=== PATIENT | female | born 1935 | race Caucasian/White ===

== ENCOUNTER 2016-09-30 14:37 | Inpatient (IN) ==
[2016-09-30] MEDS ORDERED: *HR* Metoprolol 5 MG/5 ML VIAL IVP ONE ×3 (16:07→17:00)
[2016-09-30 16:20] LABS: Basophils # 0.1 K/mcL (0.0-0.2); Basophils % 0.6 %; Eosinophils # 0.1 K/mcL (0.0-0.6); Eosinophils % 0.9 %; Hematocrit 40.2 % (35.3-44.9); Hemoglobin 12.6 g/dL (11.5-15.4); Immature Granulocytes % 0.3 % (0-4); Lymphocytes # 0.4 K/mcL (0.6-4.6); Lymphocytes % 4.1 %; Mean Corpuscular HGB Conc 31.3 g/dL (31.6-35.5); Mean Corpuscular Hemoglobin 27.3 pg (28.0-33.3); Mean Corpuscular Volume 87.2 fL (83.0-100.0); Mean Platelet Volume 10.1 fL (9.4-12.4); Monocytes # 0.3 K/mcL (0.0-1.3); Monocytes % 3.3 %; Platelet Count 236 K/mcL (140-400); Red Blood Count 4.61 M/mcL (3.82-4.97); Red Cell Distribution Width 15.7 % (11.5-14.5); Segmented Neutrophils % 90.8 %
--- NOTE | 2016-09-30 16:23 | Emergency Department Note ---
Disposition Clinical Impression: Paroxysmal atrial fibrillation, Elevated troponin, Acute on chronic renal insufficiency, Dehydration Disposition: Admitted As Inpatient Condition: Fair Time of Disposition: 17:17 General Adult HPI - General Chief complaint: ED Arrhythmia/Palpitations Stated complaint: A-Fib Time Seen by Provider: 09/30/16 15:31 Source: patient Limitations: no limitations Nursing Notes Reviewed: Yes Vital Signs Reviewed: Yes - History of Present Illness HPI Narrative: Patient is a 81-year-old female with past medical history atrial fibrillation, triple CABG in 2015, and nephrectomy presenting with heart palpitations. Patient states she has a history of going in and out of atrial fibrillation and this feels similar to that. States 3 days ago the patient was sitting at home and she noticed heart palpitations became short of breath and anxious as is been occurring multiple times over the past 3 days. She denies any chest pain. She states she is currently asymptomatic except for palpitations. States takes carvedilol 4 times a day 6.5 mg. She is also on warfarin for anticoagulation. She denies any recent illness. Pain Scale: 0 - Related Data Allergies Allergy/AdvReac Type Severity Reaction Status Date / Time No Known Allergies Allergy Verified 09/30/16 16:07 All systems ED: reviewed and negative except as stated. Constitutional: Denies: fever, chills Cardiovascular: Reports: palpitations. Denies: chest pain, dyspnea on exertion , orthopnea Past Medical History - Past Medical History Medical history: Reports: atrial fibrillation, cancer, coronary artery disease, hyperlipidemia, hypertension Psychiatric history: Reports: anxiety, depression - Social History Smoking Status: Never smoker Smokeless Tobacco Status: No Alcohol use: Reports: none Drug use: Reports: none Physical Exam Patient is sitting in bed comfortably. Patient is speaking in full sentences she is pleasant and smiling in the room. No acute distress. - General Limitations: no limitations General appearance: alert, in no apparent distress - Head Head exam: atraumatic, normocephalic, normal inspection - Eye Eye exam: Present: normal appearance, PERRL, EOMI - ENT ENT exam: normal exam, normal oropharynx, mucous membranes dry - Neck Neck exam: Present: normal inspection, full ROM, trachea midline - Chest Chest inspection: Present: normal inspection, symmetric chest wall rise. Absent : tenderness - Respiratory Respiratory exam: Present: normal lung sounds bilaterally. Absent: respiratory distress - Cardiovascular Cardiovascular exam: Present: tachycardia, irregular rhythm - Abdominal Exam Abdominal exam: Present: soft, Non-Tender, normal bowel sounds - Extremities Exam Extremities exam: Present: normal inspection, full ROM, tenderness - Expanded Lower Extremity Exam Neurovascular/Tendon exam: Present: normal capillary refill. Absent: pulse deficit - Back Exam Back exam: Present: normal inspection, full ROM. Absent: tenderness - Neurological Exam Neurological exam: Present: alert, oriented X3 - Psychiatric Psychiatric exam: Present: normal affect, normal mood - Skin Skin exam: Present: warm, dry, intact, normal color Course Course Narrative: Patient is a 1-year-old female with past medical history of COPD presenting with the complaint of cough and congestion with chest pressure that has been going on for the past 2 weeks. She is alert he had a 5 day course of azithromycin. - Reevaluation(s) Reevaluation #1: Patient has received a dose of Lopressor 5 mg 3 at this point. She still has a heart rate in the 140s. She has come down in the 100s a few times over a continues to rise. Time: 17:19 Vital Signs Temperature 98.3 F 09/30/16 15:25 Pulse Rate 125 09/30/16 15:25 Respiratory Rate 18 09/30/16 15:25 Blood Pressure 171/97 09/30/16 15:25 O2 Sat by Pulse Oximetry 92 09/30/16 15:25 Temperature 98.3 F 09/30/16 15:25 Pulse Rate 125 09/30/16 15:25 Respiratory Rate 18 09/30/16 15:25 Blood Pressure 171/97 09/30/16 15:25 O2 Sat by Pulse Oximetry 92 09/30/16 15:25 Oxygen Delivery Oxygen Delivery Room Air Medical Decision Making - Medical Records Medical records reviewed: Yes I reviewed the patient's medical records. - Lab Data Lab results reviewed: Yes I reviewed the patient's lab results. Result diagrams: 09/30/16 16:12 09/30/16 16:12 Lab Results 09/30/16 09/30/16 09/30/16 Range/Units 16:12 16:12 16:12 WBC 8.8 (4.3-11.1) K/mcL RBC 4.61 (3.82-4.97) M/mcL Hgb 12.6 (11.5-15.4) g/dL Hct 40.2 (35.3-44.9) % MCV 87.2 (83.0-100.0) fL MCH 27.3 L (28.0-33.3) pg MCHC 31.3 L (31.6-35.5) g/dL RDW 15.7 H (11.5-14.5) % Plt Count 236 (140-400) K/mcL MPV 10.1 (9.4-12.4) fL Immature Gran % 0.3 (0-4) % Seg Neutrophils % 90.8 % Lymphocytes % 4.1 % Monocytes % 3.3 % Eosinophils % 0.9 % Basophils % 0.6 % Neutrophils # 8.0 (1.6-8.9) K/mcL Lymphocytes # 0.4 L (0.6-4.6) K/mcL Monocytes # 0.3 (0.0-1.3) K/mcL Eosinophils # 0.1 (0.0-0.6) K/mcL Basophils # 0.1 (0.0-0.2) K/mcL PT 39.3 H (9.4-12.1) Seconds INR 3.6 Sodium 139 (136-145) mEq/L Potassium 4.2 (3.5-4.5) mEq/L Chloride 106 (98-109) mEq/L Carbon Dioxide 26 (19-29) mEq/L BUN 50 H (7-20) mg/dL Creatinine 2.30 H (0.57-1.11) mg/dL Est GFR ( Amer) 25 L (> 60) Est GFR (Non-Af Amer) 20 L (> 60) BUN/Creatinine Ratio 22 (6-26) Glucose 111 H (70-99) mg/dL Calculated Osmolality 302 H (280-300) Calcium 9.5 (8.6-10.8) mg/dL Troponin I (0-0.03) ng/mL B-Natriuretic Peptide (0-100) pg/mL 09/30/16 09/30/16 Range/Units 16:12 16:12 WBC (4.3-11.1) K/mcL RBC (3.82-4.97) M/mcL Hgb (11.5-15.4) g/dL Hct (35.3-44.9) % MCV (83.0-100.0) fL MCH (28.0-33.3) pg MCHC (31.6-35.5) g/dL RDW (11.5-14.5) % Plt Count (140-400) K/mcL MPV (9.4-12.4) fL Immature Gran % (0-4) % Seg Neutrophils % % Lymphocytes % % Monocytes % % Eosinophils % % Basophils % % Neutrophils # (1.6-8.9) K/mcL Lymphocytes # (0.6-4.6) K/mcL Monocytes # (0.0-1.3) K/mcL Eosinophils # (0.0-0.6) K/mcL Basophils # (0.0-0.2) K/mcL PT (9.4-12.1) Seconds INR Sodium (136-145) mEq/L Potassium (3.5-4.5) mEq/L Chloride (98-109) mEq/L Carbon Dioxide (19-29) mEq/L BUN (7-20) mg/dL Creatinine (0.57-1.11) mg/dL Est GFR ( Amer) (> 60) Est GFR (Non-Af Amer) (> 60) BUN/Creatinine Ratio (6-26) Glucose (70-99) mg/dL Calculated Osmolality (280-300) Calcium (8.6-10.8) mg/dL Troponin I 0.05 H* (0-0.03) ng/mL B-Natriuretic Peptide 1393 H (0-100) pg/mL - Radiology Data Radiology results reviewed: Yes I reviewed the patient's radiology results. Chest X-Ray 09/30/16 15:56 IMPRESSION: Cardiomegaly with pulmonary vascular congestion. No overt edema or consolidation. D/ / Steve Louise MD / Steve Louise MD Interpreting Provider: Steve Louise MD - EKG Data EKG #1 EKG attestation: Yes I reviewed and interpreted this EKG. EKG results narrative: Patient EKG was done at 16:02. EKG is a rate of 146 atrial fibrillation with a right bundle branch block, possible left posterior fascicular block. QRS is 131 and QT is 3:15 and these are within normal limits. Normal axis. This is new when compared to her old EKG done on 03/13/2013. Attestation Statement - Attestation Attestation: I personally interviewed and examined this patient and my medical decision- making was reviewed with the Resident Physician, . I agree with the documented findings, disposition and treatment plan as described except to the extent set forth below. This 81-year-old white female with a history of chronic atrial fibrillation on anticoagulation. Patient currently on Coreg. Patient currently sees Dr. Lux in cardiology at [facility]. She states that for the last 3 days she has been going in and out of atrial fibrillation. She contacted him by phone and feels she just needs her medications adjusted. He recommended she come here for evaluation. Patient denies any recent illness fevers chills or any other associated symptoms. I agree with physical exam findings as documented. Patient at bedside was in what appeared to be in atrial flutter approximately 150 bpm with stable blood pressure on arrival. Patient was resting comfortably asymptomatic with this with no complaints. Patient states the only thing she experienced at home is if she would get up to walk around to do something she would get short of breath. Patient's initial EKG showed atrial flutter with no acute ischemic changes. Patient was placed on nurse monitoring continuous pulse ox, IV saline well was established and she received aspirin and an additional dose of Lopressor 5 mg IV for rate control. Labs were drawn and sent. Chest x-ray was obtained showing some mild pulmonary congestion. This is new for her as she has no prior history of CHF. Patient with acute on chronic renal insufficiency, she reports that she has a solitary kidney due to renal cancer in the past and that her baseline creatinine is 2.2. She also has an elevated BUNs. Patient with a troponin of 0.05, we have no old labs for comparison so tarted no with her history of renal insufficiency if this is chronic for her. Patient denies any form of chest pain pressure or heaviness this time. Following her second dose of Lopressor IV patient had sustained a normal rate in the 70s but still in atrial fibrillation. We went to repeat an EKG and she has been having paroxysmal episodes of tachycardia. Patient's blood pressure has remained stable throughout and she continues to be asymptomatic with these changes. At this time we will admit the patient for further evaluation of her atrial fibrillation and abnormal lab work. Patient wishes to remain here at this time and does not want to be transferred to [facility]. Hospitalist was contacted who accepted the patient for admission and further evaluation and management.
[2016-09-30 16:32] LABS: Potassium 4.2 mEq/L (3.5-4.5)
[2016-09-30 16:33] LABS: Calcium 9.5 mg/dL (8.6-10.8)
[2016-09-30 16:46] LABS: INR 3.6; Prothrombin Time 39.3 Seconds (9.4-12.1)
[2016-09-30] MEDS ORDERED: 0.9 % Sodium Chloride 500 ML IVC ONE (16:46)
[2016-09-30] MEDS ORDERED: Naloxone 0.4 MG/ML INJ IVP PRN (22:50)
--- NOTE | 2016-09-30 22:55 | Internal Med History&Physical ---
Date of Encounter: 09/30/16 Time of Encounter: 22:53 Assessment and Plan (1) Paroxysmal atrial fibrillation Current visit: Yes Status: Acute start dilt gtt overnight, continue coreg, once stable, may increase coreg as needed base on further readings, check Mg. Hold coumadin, check INR tomorrow since INR is supertherapeutic (2) Acute on chronic renal insufficiency Current visit: Yes Status: Acute Gentle IVF, watch overload, trend Cr (3) Elevated troponin Current visit: Yes Status: Acute likely demand for RVR, trend Internal Medicine - H&P: HPI Chief complaint: Palpitation, SOB History of present illness: Ms. Mendoza is a 81 year old female with hx of AFIb who presents with symptomatic exacerbation with RVR. She is under the care of Dr Morales [facility] and is on warfarin and coreg. Hx of hx of INR swings on coumadin. SHe noted 4 days hx of palpitations, better with rest, worse with exertion. Some associated SOB with episodes. CXR reviewed by self with cardiomegaly and stable pulm congestion Tele trip on floor reviewed rate 143 Past Med Surg Social Fam HX - Past Medical History Medical history: atrial fibrillation, cancer, coronary artery disease, hyperlipidemia, hypertension Psychiatric history: anxiety, depression - Social History Smoking Status: Never smoker Smokeless Tobacco Status: No Alcohol use: none Drug use: none - Family History Mother Hx Family Cardiac Disorders: Yes (Stroke) Internal Medicine - H&P: Meds Aspirin Enteric Coated [Aspirin EC] 81 mg PO DAILY 09/30/16 [History] Carvedilol [Coreg] 6.25 mg PO BID 09/30/16 [History] Lisinopril/Hydrochlorothiazide [Zestoretic 20-25 mg Tablet] 1 tab PO DAILY 09/30 [History] Paricalcitol [Zemplar] 2 mcg PO MOWEFR 09/30/16 [History] Simvastatin [Zocor] 40 mg PO HS 09/30/16 [History] Warfarin [Coumadin] 2.5 mg PO SUMOWEFRSA 09/30/16 [History] Warfarin [Coumadin] 5 mg PO TUTH 09/30/16 [History] 3 Allergy/AdvReac Type Severity Reaction Status Date / Time No Known Allergies Allergy Verified 09/30/16 16:07 All Systems PM: A 10-system review of systems was performed and is negative for pertinent findings except as documented above in the HPI. Review of systems: ROS 14 point review of systems reviewed as best as possible given presentation. Pertinent positive or negative as per HPI or otherwise reviewed as negative - Constitutional Vitals: Temp Pulse Resp BP Pulse Ox 97.8 F 144 16 164/128 97 09/30/16 19:49 09/30/16 19:49 09/30/16 19:49 09/30/16 19:49 09/30/16 19:49 Exam: General - AAO x 3 Psych - Appropriate affect/speech. No agitation Eyes - SUSI. Eye lids intact. No scleral icterus Heart - A. fib with rapid ventricular response. S1 and S2 present. No added HS/ murmurs appreciated. No elevated JVD appreciated. No calf swellings/erythema Lung - Adequate air entry b/l, No crackes/wheezes appreciated GI - Soft, non-tender. No hepatosplenomegaly/ascites. BS+ - No CVA/suprapubic tenderness or palpable bladder distension Skin - Intact. No rash/petechiae/ecchymosis. Warm extremities MSK - Joints with normal ROM. No joint swellings Internal Med - H&P Results - Labs CBC & Chem 7: 09/30/16 16:12 09/30/16 16:12 - VTE Reasons for not Prescribing Prophylaxis: Not indicated-Anticoagulated or INR therapeutic
[2016-09-30] MEDS ORDERED: 0.9 % Sodium Chloride 1,000 ML IVC SCH (23:00)
[2016-09-30] MEDS ORDERED: *HR* Warfarin 5 MG TABLET PO SCH (23:00)
[2016-09-30] MEDS ORDERED: 0.9 % Sodium Chloride 1,000 ML ONE (23:06)
[2016-09-30] MEDS: 0.9 % Sodium Chloride 1,000 ML IVC SCH (23:17)
[2016-10-01 02:26] LABS: INR 3.9
[2016-10-01 02:29] LABS: Prothrombin Time 43.4 Seconds (9.4-12.1)
[2016-10-01 02:31] LABS: Calcium 8.6 mg/dL (8.6-10.8)
[2016-10-01 02:38] LABS: Basophils # 0.1 K/mcL (0.0-0.2); Basophils % 0.7 %; Eosinophils # 0.1 K/mcL (0.0-0.6); Eosinophils % 1.1 %; Hemoglobin 11.8 g/dL (11.5-15.4); Immature Granulocytes % 0.4 % (0-4); Lymphocytes # 0.8 K/mcL (0.6-4.6); Mean Corpuscular HGB Conc 32.8 g/dL (31.6-35.5); Mean Corpuscular Volume 85.5 fL (83.0-100.0); Mean Platelet Volume 11.3 fL (9.4-12.4); Monocytes # 0.5 K/mcL (0.0-1.3); Monocytes % 7.1 %; Neutrophils # 5.7 K/mcL (1.6-8.9); Platelet Count 180 K/mcL (140-400); Red Blood Count 4.21 M/mcL (3.82-4.97); Red Cell Distribution Width 15.6 % (11.5-14.5); Segmented Neutrophils % 79.7 %
[2016-10-01 02:41] LABS: Potassium 3.9 mEq/L (3.5-4.5)
[2016-10-01] MEDS: Aspirin Enteric Coated 81 MG Tablet PO SCH (08:19)
--- NOTE | 2016-10-01 10:14 | Internal Med Progress Note ---
<Jayro Noriega - Last Filed: 10/01/16 16:09> Date of Encounter: 10/01/16 Time of Encounter: 10:14 - Assessment and plan (1) Paroxysmal atrial fibrillation Current Visit: Yes Status: Acute Assessment and plan: 1 episode hx afib in 2014 after CABG 3 vessel. Palpations, SOB on exertion and racing heart 4 day history prior to hospitalizaion. Asymptomatic on 10/01/16 - now on Dilt 30 PO - continue coreg, increase if needed - coumadin - currently held 2/2 subtherapeutic. (2) Acute on chronic renal insufficiency Current Visit: Yes Status: Acute Assessment and plan: No known history of renal disease. Cr on admission 2.30. Cr today 2.25 after IVF. - ct IVF - Subjective Interval history: Ms Mendoza 81 yo F on day 1 admit 2/2 paroxysmal afib w/ hx 1 episode of afib post CAB 3 vessel in 2014 which self converted. Patient today reports that she no longer feels the palpitations, SOB or racing heart. patient denies n/f/v/c/headache/lightheadness/confusion/numbness or weakness. - Constitutional Vitals: Temp Pulse Resp BP Pulse Ox 97.5 F L 70 17 135/82 92 10/01/16 06:57 10/01/16 06:57 10/01/16 06:57 10/01/16 06:57 10/01/16 06:57 General appearance: Present: A&O X 3 - Head Head exam: Present: atraumatic, normocephalic - Respiratory Respiratory exam: Present: CTAB. Absent: accessory muscle use, rales, rhonchi, wheezes - Cardiovascular Cardiovascular exam: Present: RRR, +S1, +S2. Absent: diastolic murmur, gallop, rubs, systolic murmur - Expanded Cardiovascular Exam Peripheral pulses: 2+: Radial (L), Radial (R), Posterior Tibialis (L), Posterior Tibialis (R), Dorsalis Pedis (L) PM, Dorsalis Pedis (R) PM - Extremities Exam Extremities exam: Present: normal inspection Internal Medicine: Result - Labs CBC & Chem 7: 10/01/16 01:53 10/01/16 01:53 Labs: Short CBC 10/01/16 Range/Units 01:53 WBC 7.2 (4.3-11.1) K/mcL Hgb 11.8 (11.5-15.4) g/dL Hct 36.0 (35.3-44.9) % Plt Count 180 (140-400) K/mcL Neutrophils # 5.7 (1.6-8.9) K/mcL BMP 10/01/16 01:53 Sodium 140 Potassium 3.9 Chloride 110 H Carbon Dioxide 21 BUN 48 H Creatinine 2.25 H Glucose 165 H Calcium 8.6 Cardiac Enzymes 10/01/16 10/01/16 Range/Units 01:53 04:47 Troponin I 0.04 H* 0.04 H* (0-0.03) ng/mL - ABG Interpretation ABG results: PT/INR, D-dimer PT 43.4 Seconds (9.4-12.1) H* 10/01/16 01:53 - VTE Reasons for not Prescribing Prophylaxis: Not indicated-Anticoagulated or INR therapeutic Consult Discharge Plan - Plan Referrals: Cesar Lozano DO [Primary Care Provider] - <Jeromy Ren - Last Filed: 10/01/16 18:11> Date of Encounter: 10/01/16 - Constitutional Vitals: Temp Pulse Resp BP Pulse Ox 97.6 F 60 18 177/87 95 10/01/16 17:09 10/01/16 17:09 10/01/16 17:09 10/01/16 17:09 10/01/16 17:09 Internal Medicine: Result - Labs CBC & Chem 7: 10/01/16 01:53 10/01/16 01:53 Labs: Short CBC 10/01/16 Range/Units 01:53 WBC 7.2 (4.3-11.1) K/mcL Hgb 11.8 (11.5-15.4) g/dL Hct 36.0 (35.3-44.9) % Plt Count 180 (140-400) K/mcL Neutrophils # 5.7 (1.6-8.9) K/mcL BMP 10/01/16 01:53 Sodium 140 Potassium 3.9 Chloride 110 H Carbon Dioxide 21 BUN 48 H Creatinine 2.25 H Glucose 165 H Calcium 8.6 Cardiac Enzymes 10/01/16 10/01/16 10/01/16 Range/Units 01:53 04:47 10:34 Troponin I 0.04 H* 0.04 H* 0.04 H* (0-0.03) ng/mL - ABG Interpretation ABG results: PT/INR, D-dimer PT 43.4 Seconds (9.4-12.1) H* 10/01/16 01:53 - Attending Attestation I examined this patient and my medical decision-making was reviewed with the Resident Physician. I agree with the documented findings, disposition and treatment plan as described except to the extent set forth below. We will spoke with patient's cardiology tomorrow. In the patient's cardiology agree with the management what we are giving at this point, we will discharge patient. Patient has a cardiology appointment set up at the [facility].
[2016-10-01] MEDS: 0.9 % Sodium Chloride 1,000 ML IVC SCH (13:51)
--- NOTE | 2016-10-01 14:49 | Electrocardiograph Report ---
[place] [id number] Test Date: 2016-09-30 Pat Name: Susan Mendoza Department: 0 Room: 2A Gender: F [employer]inder: Elvi : [id number] Requested By: Solis Carnes Order Number: [id number] Reading MD: Liobrio Seaman MD Measurements Intervals [place] Rate: 146 P: ID: 0 QRS: 151 QRSD: 131 T: 40 QT: 315 QTc: 399 Interpretive Statements ATRIAL FLUTTER/TACHYCARDIA WITH RAPID VENTRICULAR RESPONSE RIGHT BUNDLE BRANCH BLOCK LEFT POSTERIOR FASCICULAR BLOCK Electronically Signed On 10-01-2016 14:48:08 EDT by Liborio Seaman MD
[2016-10-01] MEDS ORDERED: *HR* Metoprolol 5 MG/5 ML VIAL IVP ONE (20:39)
[2016-10-01] MEDS ORDERED: *HR* Warfarin 2.5 MG TABLET PO SCH (22:47)
[2016-10-02 06:31] LABS: INR 2.8; Prothrombin Time 30.9 Seconds (9.4-12.1)
[2016-10-02 07:00] LABS: Hematocrit 37.1 % (35.3-44.9); Hemoglobin 11.9 g/dL (11.5-15.4); Mean Corpuscular HGB Conc 32.1 g/dL (31.6-35.5); Mean Corpuscular Hemoglobin 27.9 pg (28.0-33.3); Mean Corpuscular Volume 86.9 fL (83.0-100.0); Mean Platelet Volume 10.8 fL (9.4-12.4); Platelet Count 213 K/mcL (140-400); Red Blood Count 4.27 M/mcL (3.82-4.97)
[2016-10-02 07:07] LABS: Calcium 9.6 mg/dL (8.6-10.8)
--- NOTE | 2016-10-02 07:19 | Internal Med Progress Note ---
Date of Encounter: 10/02/16 Time of Encounter: 07:19 - Assessment and plan (1) Paroxysmal atrial fibrillation Current Visit: Yes Status: Acute (2) Acute on chronic renal insufficiency Current Visit: Yes Status: Acute - Subjective Interval history: Ms Mendoza 81 yo F on day 1 admit 2/2 paroxysmal afib w/ hx 1 episode of afib post CAB 3 vessel in 2014 which self converted. Patient today reports that she no longer feels the palpitations, SOB or racing heart. patient denies n/f/v/c/headache/lightheadness/confusion/numbness or weakness. - Constitutional Vitals: Temp Pulse Resp BP Pulse Ox 97.7 F 69 18 154/77 98 10/02/16 05:26 10/02/16 05:26 10/02/16 05:26 10/02/16 05:26 10/02/16 05:26 General appearance: Present: A&O X 3 Internal Medicine: Result - Labs CBC & Chem 7: 10/02/16 05:48 10/02/16 05:48 Labs: Short CBC 10/02/16 Range/Units 05:48 WBC 7.8 (4.3-11.1) K/mcL Hgb 11.9 (11.5-15.4) g/dL Hct 37.1 (35.3-44.9) % Plt Count 213 (140-400) K/mcL BMP 10/02/16 05:48 Sodium 142 Potassium 4.0 Chloride 111 H Carbon Dioxide 20 BUN 49 H Creatinine 2.31 H Glucose 96 Calcium 9.6 Cardiac Enzymes 10/01/16 Range/Units 10:34 Troponin I 0.04 H* (0-0.03) ng/mL - ABG Interpretation ABG results: PT/INR, D-dimer PT 30.9 Seconds (9.4-12.1) H 10/02/16 05:48 - VTE Reasons for not Prescribing Prophylaxis: Not indicated-Anticoagulated or INR therapeutic Consult Discharge Plan - Plan Referrals: Cesar Lozano DO [Primary Care Provider] -
[2016-10-02] MEDS: Aspirin Enteric Coated 81 MG Tablet PO SCH (07:53)
--- NOTE | 2016-10-02 08:31 | Discharge Summary ---
<Jayro Noriega - Last Filed: 10/02/16 14:20> Date of Encounter: 10/02/16 Time of Encounter: 08:31 - Discharge Diagnosis (1) Paroxysmal atrial fibrillation Priority: Primary Status: Acute (2) Acute on chronic renal insufficiency Priority: Secondary Status: Acute - Discharge Medications Prescriptions: Amoxicillin/Clavulanate [Augmentin] 500 mg PO BID #10 tablet Atorvastatin [Lipitor] 40 mg PO HS #30 tab Diltiazem CD (24hr) [Cardizem CD] 240 mg PO DAILY #30 cap.er.24h Home Medications: Aspirin Enteric Coated [Aspirin EC] 81 mg PO DAILY 09/30/16 [History] Carvedilol [Coreg] 12.5 mg PO BID 09/30/16 [History] Paricalcitol [Zemplar] 2 mcg PO MOWEFR 09/30/16 [History] Warfarin [Coumadin] 2.5 mg PO SUMOWEFRSA 09/30/16 [History] Amoxicillin/Clavulanate [Augmentin] 500 mg PO BID #10 tablet 10/05/16 [Rx] Atorvastatin [Lipitor] 40 mg PO HS #30 tab 10/05/16 [Rx] Diltiazem CD (24hr) [Cardizem CD] 240 mg PO DAILY #30 cap.er.24h 10/05/16 [Rx] Allergies/Adverse Reactions: 3 Allergy/AdvReac Type Severity Reaction Status Date / Time lidocaine AdvReac Mild Palpitation Verified 10/03/16 22:16 s Date of admission: 09/30/16 22:50 Primary care physician: Cesar Lozano - Patient Status Disposition: Home, Self-Care Condition: Fair Overall status at discharge: patient is progressing back to baseline - Discharge Instructions Instructions: Diltiazem (By mouth), Amoxicillin/Clavulanate Potassium (By mouth ), Atorvastatin (By mouth), Atrial Flutter (DC), Atrial Fibrillation (DC) Follow Up With: Dr. Felix Romero MD [Other] (Office will call the patient at home with an appointment date and time. Thank you!!) Cesar Lozano DO [Primary Care Provider] - 10/07/16 11:15 am Dalton Pressley DO [Non-Partnered Physician] - Durga Abreu DO [Partnered Physician] - Additional Instructions: Patient to follow up with Primary Care Provider within 1 week, and to follow up with cardiology. will have outpatient cardioversion done in about 6 weeks per cardiology. Patient to continue home Coreg. Due to renal function to discontinue lisinopril /hctz. Restart warfarin 2.5 mg Take Augmentin twice a day for 5 days for pneumonia. Take cardizem CD 240 daily Follow up with primary care doctor tomorrow to have INR checked. goal INR 2.5- 3.5 stop simvastatin, start atorvastatin. - Diet and Activity Activity: increase activity as tolerated Diet: low salt diet Hospital course: Ms. Mendoza is a 81 year old female with history of Afib who presented with symptomatic exacerbation with RVR. Sx included 4 day hx of palpitations, better with rest, worse with exertion, and associated SOB with episodes. CXR cardiomegaly and stable pulm congestion. EKG confirmed Afib w/ RVR. She was started on Dilt IV then switched to Dilt PO and discharged on Dilt 120 mg CD PO Rx. As well, she takes ASA 81, Carvdilol 12.5 mg BID, and she was restarted on her Warfarin for anti-coag on discharge. Patient requested to switch to [facility] follow up. - Time Spent with Patient Total time spent providing and/or coordinating discharge services: - Constitutional Vitals: Temp Pulse Resp BP Pulse Ox 97.8 F 61 16 167/72 91 10/02/16 07:34 10/02/16 07:34 10/02/16 07:34 10/02/16 07:34 10/02/16 07:34 General appearance: Present: A&O X 3 - Respiratory Respiratory exam: Present: CTAB. Absent: accessory muscle use, rales, rhonchi, wheezes - Cardiovascular Cardiovascular exam: Present: irregular rhythm - GI/Abdominal GI/Abdominal exam: Present: normal bowel sounds, soft, no peritoneal signs. Absent: distended, tenderness - Neurological Exam Neurological exam: Present: alert, oriented X3 - Psychiatric Psychiatric exam: Present: normal affect, normal mood - VTE Reasons for not Prescribing Prophylaxis: Not indicated-Anticoagulated or INR therapeutic <Jordan Renteria - Last Filed: 10/03/16 17:41> Date of Encounter: 10/03/16 Time of Encounter: 10:00 - Discharge Diagnosis (1) Paroxysmal atrial fibrillation Priority: Primary Status: Acute (2) Acute on chronic renal insufficiency Priority: Secondary Status: Acute Procedures/tests Complete & Pending: Procedures Performed prior 72 hours Category Date Time Status EKG [ECG 12 lead ECG] [ECG] Stat Y 10/02/16 12:24 Ordered EKG [ECG 12 lead ECG] [ECG] Stat Y 10/03/16 09:06 Ordered EV светлана guided cardioversion Routine Y 10/03/16 10:44 Ordered Date of admission: 09/30/16 22:50 Primary care physician: Cesar Lozano Discharging clinician: Jordan Renteria Anticipated date of discharge: 10/03/16 Interval History: Patient seen and examined. Reports that she feels well with no complaints. Denies light-headedness, chest pain, palpitations, dyspnea, cough, N/V/D, dysuria, or leg pain//swelling. Hospital course: Cardiology was consulted and conducted a СВЕТЛАНА and cardioversion on 10/03/16. She will be discharged on her home BB dose, not Diltaizem. - Time Spent with Patient Total time spent providing and/or coordinating discharge services: Greater than 30 minutes - Constitutional Vitals: Temp Pulse Resp BP Pulse Ox 98.1 F 129 24 176/121 92 10/03/16 17:11 10/03/16 17:11 10/03/16 17:11 10/03/16 17:11 10/03/16 17:11 General appearance: Present: A&O X 3, no acute distress, answers questions appropriately - Head Head exam: Present: atraumatic, normocephalic - Eye Eye exam: Present: conjuntiva pink, sclera anicteric - Cardiovascular Cardiovascular exam: Present: irregular rhythm. Absent: diastolic murmur, systolic murmur - Extremities Exam Extremities exam: Present: warm, radial pulses palpable and symmetrical. Absent : pedal edema, tenderness - Neurological Exam Neurological exam: Present: CN II-XII intact, no focal deficits - Skin Skin exam: Present: dry, intact <Gela,Jeromy P - Last Filed: 10/06/16 18:54> Date of Encounter: 10/06/16 Procedures/tests Complete & Pending: Procedures Performed prior 72 hours Category Date Time Status ECG 12 lead ECG [ECG] Routine Y 10/04/16 09:01 Completed Date of admission: 09/30/16 22:50 Primary care physician: Cesar Lozano Consults: 10/04/16 00:21 Consult to Nephrology [CONS] Routine Consulting Provider: [facility] Reason for Consult: Hx of CKD and only one kidney. Sees nephrology at outside facility. Patient has effusions on CXR and very mild upper extremity edema but no previous diagnosis of CHF per records. Patient was on Lisinopril HCTZ previously but HCTZ was discontinued due to previous worsening renal function per patient. Would appreciate nephro input/recs before possibl starting back HCTZ or another diuretic such as lasix. Call Completed: No Hospital course: Ms. Mendoza is a 81 year old female - Time Spent with Patient Total time spent providing and/or coordinating discharge services: - Constitutional Vitals: Temp Pulse Resp BP Pulse Ox 97.7 F 93 18 156/94 96 10/05/16 11:41 10/05/16 11:41 10/05/16 11:41 10/05/16 11:41 10/05/16 11:41 - Attending Attestation Patient is not discharged on this date. Please treat this discharge summary as a "cancelled" discharge summary.
--- NOTE | 2016-10-02 14:23 | Event Note ---
<Jayro Noriega - Last Filed: 10/02/16 15:08> Date of Encounter: 10/02/16 Time of Encounter: 14:22 Patient was about to be discharged when she started to have Tachycardia. Cardio was consulted and decided to start IV Amiodarone. Transfer to <Jeromy Ren - Last Filed: 10/02/16 18:29> Date of Encounter: 10/02/16 case discussed with cardio will start cardizem cardio will follow
--- NOTE | 2016-10-02 14:38 | Cardiology Consult Note ---
Date of Encounter: 10/02/16 Time of Encounter: 14:15 Assessment and Plan (1) Paroxysmal atrial flutter Current Visit: Yes Status: Acute Start cardizem IV drip 10 mg push and then 10 mg/hr. Patient's INR is 2.8 and currently therapeutic. Recommended restarting warfarin. (2) Shortness of breath Current Visit: Yes Status: Acute BNP on arrival was 1393. Patient's renal status could also be contributing to high BNP value. Patient's creatinine is 2.2. Lasix not recommended at this point due to renal status. Will consider ordering echocardiogram once patient's rate has been controlled. (3) Coronary artery disease Current Visit: Yes Status: Acute Patient's risk factor for CAD include HTN and hyperlipidemia. Continue aspirin, carvedilol, and statin. Qualifiers: Qualified Code(s): I25.10 - Atherosclerotic heart disease of [place] coronary artery without angina pectoris (4) Hypertension Current Visit: Yes Status: Acute Patient's BP range has been from 101/63-171/97. Continue carvedilol. Qualifiers: Qualified Code(s): I10 - Essential (primary) hypertension (5) Elevated troponin Current Visit: Yes Status: Acute Troponin was elevated at 0.04, which was most likely secondary to her atrial flutter. (6) Hyperlipidemia Current Visit: Yes Status: Acute Continue statin. Qualifiers: Qualified Code(s): E78.5 - Hyperlipidemia, unspecified Discussion w patient/family: The assessment and plan as outlined above was discussed with the patient and/or family members who expressed understanding and agreement. All questions were answered. Thank you for involving us in the care of your patient. Please call with any questions. History of Present Illness Consult date: 10/02/16 Consult reason: Atrial fibrillation Chief complaint: Palpitations, shortness of breath History of present illness: Ms. Mendoza is a 81 year old female with a PMH of atrial fibrillation, renal cancer, CAD, hyperlipidemia, HTN, with a PSH of CABG x 3 and nephrectomy that presents for heart palpitations and shortness of breath. Patient says that 5 days ago, she started feeling heart palpitations along with shortness of breath and increased HR when she would be working around the house. She said this happened a few times and would each last anywhere from a few hours to the entire night. She denies any chest pain, numbness/tingling, headaches, vision changes, syncope, nausea, or vomiting. She says that 2 weeks ago the most active thing she would be able to do would be to walk 3/4 mile without becoming short of breath. She states than now she can't even stand up without some shortness of breath. She denies any swelling or coughing. When patient presented to the ER, her EKG showed atrial flutter with RVR. At home she is on warfarin at home. Her BNP on arrival was 1393 and her troponins were elevated at 0.05. Past Med Surg Social Fam HX - Past Medical History Medical history: atrial fibrillation, cancer, coronary artery disease, hyperlipidemia, hypertension Psychiatric history: anxiety, depression - Social History Smoking Status: Never smoker Smokeless Tobacco Status: No Alcohol use: none Drug use: none - Family History Mother Hx Family Cardiac Disorders: Yes (Stroke) Medications and Allergies Aspirin Enteric Coated [Aspirin EC] 81 mg PO DAILY 09/30/16 [History] Carvedilol [Coreg] 12.5 mg PO BID 09/30/16 [History] Paricalcitol [Zemplar] 2 mcg PO MOWEFR 09/30/16 [History] Simvastatin [Zocor] 40 mg PO HS 09/30/16 [History] Warfarin [Coumadin] 2.5 mg PO SUMOWEFRSA 09/30/16 [History] Diltiazem CD (24hr) [Cardizem CD] 120 mg PO DAILY #30 cap.er.24h 10/02/16 [Rx] 3 Allergy/AdvReac Type Severity Reaction Status Date / Time No Known Allergies Allergy Verified 09/30/16 16:07 All Systems Review: A 10-system review of systems was performed and is negative for pertinent findings except as documented above in the HPI. - EENT Eyes: no blurred vision, no loss of vision - Cardiovascular Cardiovascular: dyspnea on exertion, irregular heart rhythm, palpitations, rapid heart rate, no chest pain at rest, no chest pain with exertion, no dyspnea at rest, no radiating jaw, neck or arm pain, no leg edema, no lightheadedness, no orthopnea, no syncope - Respiratory Respiratory: no cough Physical Examination General: Conversant, No Apparent Distress Neck: Other (R JVD noted. Bruits detected on carotids bilaterally.) Cardiac: Other (Irregular rhythm and rate. ) Lungs: Normal Breath Sounds, No Wheeze, Rales, Rhonchi Neuro: Alert and responsive Musculoskeletal: No Chest Wall Tenderness Extremities: No Clubbing, No Cyanosis, No Edema, Normal Pulses Results 10/02/16 05:48 10/02/16 05:48 Lab Results 10/02/16 10/02/16 10/02/16 05:48 05:48 05:48 WBC 7.8 Hgb 11.9 Hct 37.1 Plt Count 213 INR 2.8 Sodium 142 Potassium 4.0 Chloride 111 H Carbon Dioxide 20 BUN 49 H Creatinine 2.31 H Glucose 96 Calcium 9.6 Laboratory Tests 09/30/16 10/01/16 10/01/16 16:12 01:53 04:47 Troponin I 0.05 H* 0.04 H* 0.04 H* 10/01/16 10:34 Troponin I 0.04 H* - Imaging and Cardiology Chest Xray: report reviewed (Cardiomegaly with pulmonary vascular congestion. No edema or consolodation.) - EKG Interpretation EKG results cardiology: personally reviewed (Displays atrial flutter with RBB.) Consult Discharge Plan - Plan Instructions: Diltiazem (By mouth) Additional Instructions: Patient to follow up with Primary Care Provider within 1 week, and to follow up with her bobbin hauler at [place]. Patient to start on Cardizem 120 mg CD. Due to renal function to D/C lisinopril /hctz. Restart warfarin 2.5 mg Referrals: Dr. Felix Romero MD [Other] (Office will call the patient at home with an appointment date and time. Thank you!!) Cesar Lozano DO [Primary Care Provider] - 10/07/16 11:15 am Dalton Pressley DO [Non-Partnered Physician] - Durga Abreu DO [Partnered Physician] - Prescriptions: Diltiazem CD (24hr) [Cardizem CD] 120 mg PO DAILY #30 cap.er.24h
[2016-10-02] MEDS ORDERED: 0.9 % Sodium Chloride 1,000 ML ONE (19:36)
[2016-10-03 04:23] LABS: INR 2.4; Prothrombin Time 26.8 Seconds (9.4-12.1)
[2016-10-03 07:18] LABS: Basophils # 0.1 K/mcL (0.0-0.2); Basophils % 0.6 %; Eosinophils # 0.4 K/mcL (0.0-0.6); Eosinophils % 4.3 %; Hematocrit 37.2 % (35.3-44.9); Hemoglobin 11.6 g/dL (11.5-15.4); Immature Granulocytes % 0.3 % (0-4); Lymphocytes # 0.6 K/mcL (0.6-4.6); Lymphocytes % 5.9 %; Mean Corpuscular HGB Conc 31.2 g/dL (31.6-35.5); Mean Corpuscular Hemoglobin 26.9 pg (28.0-33.3); Mean Corpuscular Volume 86.3 fL (83.0-100.0); Mean Platelet Volume 10.1 fL (9.4-12.4); Monocytes # 0.7 K/mcL (0.0-1.3); Monocytes % 7.1 %; Neutrophils # 7.8 K/mcL (1.6-8.9); Platelet Count 216 K/mcL (140-400); Red Blood Count 4.31 M/mcL (3.82-4.97); Red Cell Distribution Width 15.8 % (11.5-14.5); Segmented Neutrophils % 81.8 %
[2016-10-03 07:26] LABS: Calcium 9.5 mg/dL (8.6-10.8); Potassium 3.9 mEq/L (3.5-4.5)
[2016-10-03] MEDS: Aspirin Enteric Coated 81 MG Tablet PO SCH (08:22)
--- NOTE | 2016-10-03 10:29 | Cardiology Progress Note ---
Date of Encounter: 10/03/16 Time of Encounter: 09:40 Assessment and Plan (1) Paroxysmal atrial flutter Current Visit: Yes Status: Acute Patient started on cardizem drip yesterday. EKG from today shows that the patient is still in atrial flutter. Plan to do a СВЕТЛАНА cardioversion today. Patient's INR is currently at 2.4 and therapeutic. Ordered coumadin per pharmacy. (2) Shortness of breath Current Visit: Yes Status: Acute BNP on arrival was 1393. Patient's renal status could also be contributing to high BNP value. Patient's creatinine is 2.36. Lasix not recommended at this point due to renal status. (3) Coronary artery disease Current Visit: Yes Status: Acute Patient's risk factor for CAD include HTN and hyperlipidemia. Continue aspirin, carvedilol, and statin. Qualifiers: Qualified Code(s): I25.10 - Atherosclerotic heart disease of [place] coronary artery without angina pectoris (4) Hypertension Current Visit: Yes Status: Acute Patient's BP range has been from 143/69-169/116. Continue carvedilol. Qualifiers: Qualified Code(s): I10 - Essential (primary) hypertension (5) Elevated troponin Current Visit: Yes Status: Acute Troponin was elevated at 0.04, which was most likely secondary to her atrial flutter. (6) Hyperlipidemia Current Visit: Yes Status: Acute Continue statin. Qualifiers: Qualified Code(s): E78.5 - Hyperlipidemia, unspecified Discussion w patient/family: The assessment and plan as outlined above was discussed with the patient and/or family members who expressed understanding and agreement. All questions were answered. Thank you for involving us in the care of your patient. Please call with any questions. Subjective Principal diagnosis: Atrial flutter, palpitations Interval history: Patient still admits shortness of breath and increased HR when she gets up to walk and states that it has not changed in severity since yesterday. She denies chest pain, nausea, vomiting, headaches, light-headedness, vision changes, or syncope. Objective Vital Signs, Last 4 Hours Temp Pulse Resp BP Pulse Ox 10/03/16 07:59 97.9 F 115 17 150/88 90 General: Conversant, No Apparent Distress Neck: Other (JVD noted on R side, but seems to be less when compared to yesterday. Minor bruits apprecaited bilaterally in carotids. ) Cardiac: Other (Irregular rhytmn and rate. ) Lungs: Normal Breath Sounds, No Wheeze, Rales, Rhonchi Neuro: Alert and responsive Musculoskeletal: No Chest Wall Tenderness Extremities: No Clubbing, No Cyanosis, No Edema, Normal Pulses Results 10/03/16 07:00 10/03/16 07:00 Lab Results 10/03/16 10/03/16 10/03/16 03:39 07:00 07:00 WBC 9.5 Hgb 11.6 Hct 37.2 Plt Count 216 INR 2.4 Sodium 142 Potassium 3.9 Chloride 111 H Carbon Dioxide 22 BUN 47 H Creatinine 2.36 H Glucose 98 Calcium 9.5 Laboratory Tests 09/30/16 10/01/16 10/01/16 16:12 01:53 04:47 Troponin I 0.04 H* 0.04 H* B-Natriuretic Peptide 1393 H 10/01/16 10:34 Troponin I 0.04 H* B-Natriuretic Peptide - VTE Reasons for not Prescribing Prophylaxis: Not indicated-Anticoagulated or INR therapeutic Consult Discharge Plan - Plan Instructions: Diltiazem (By mouth) Additional Instructions: Patient to follow up with Primary Care Provider within 1 week, and to follow up with her visual c developer at [place]. Patient to start on Cardizem 120 mg CD. Due to renal function to D/C lisinopril /hctz. Restart warfarin 2.5 mg Referrals: Dr. Felix oRmero MD [Other] (Office will call the patient at home with an appointment date and time. Thank you!!) Cesar Lozano DO [Primary Care Provider] - 10/07/16 11:15 am Dalton Pressley DO [Non-Partnered Physician] - Durga Abreu DO [Partnered Physician] - Prescriptions: Diltiazem CD (24hr) [Cardizem CD] 120 mg PO DAILY #30 cap.er.24h
[2016-10-03] MEDS ORDERED: *HR* FentaNYL (PF) 100 MCG/2 ML VIAL IVP PRN (16:18)
[2016-10-03] MEDS ORDERED: 0.9 % Sodium Chloride 500 ML IVC ONE ×2 (16:19→17:03)
[2016-10-03] MEDS ORDERED: *HR* Midazolam HCl 5 MG/5 ML VIAL IVP PRN (16:19)
--- NOTE | 2016-10-03 17:56 | Internal Med Progress Note ---
<DexterJordan Eitan - Last Filed: 10/03/16 17:52> Date of Encounter: 10/03/16 Time of Encounter: 10:00 - Assessment and plan (1) Paroxysmal atrial fibrillation Current Visit: Yes Status: Acute Assessment and plan: 1 episode hx afib in 2014 after CABG 3 vessel. Palpations, SOB on exertion and racing heart 4 day history prior to hospitalizaion. Asymptomatic on 10/01/16 - now on Dilt 30 PO - continue coreg, increase if needed - coumadin - currently held 2/2 subtherapeutic Plan: СВЕТЛАНА and cardioversion today May stop Dilt after cardioversion May discharge on home BB, statin, and ASA after successful cardioversion (2) Acute on chronic renal insufficiency Current Visit: Yes Status: Acute Assessment and plan: No known history of renal disease. Cr on admission 2.30. Cr today 2.36 today - ct IVF - Subjective Interval history: Patient seen and examined. Doing well with no complaints. Denies light- headedness, chest pain, palpitations, dyspnea, N/V/D, dysuria, or leg pain/ swelling. - Constitutional Vitals: Temp Pulse Resp BP Pulse Ox 98.1 F 129 24 176/121 92 10/03/16 17:11 10/03/16 17:11 10/03/16 17:11 10/03/16 17:11 10/03/16 17:11 General appearance: Present: A&O X 3, no acute distress, answers questions appropriately - Head Head exam: Present: atraumatic, normocephalic - Eye Eye exam: Present: conjuntiva pink, sclera anicteric - Respiratory Respiratory exam: Present: CTAB. Absent: rales, rhonchi, wheezes - Cardiovascular Cardiovascular exam: Present: irregular rhythm. Absent: diastolic murmur, systolic murmur - GI/Abdominal GI/Abdominal exam: Present: normal bowel sounds, soft. Absent: distended, rigid , tenderness - Extremities Exam Extremities exam: Present: warm, radial pulses palpable and symmetrical. Absent : pedal edema, tenderness - Neurological Exam Neurological exam: Present: alert, CN II-XII intact, oriented X3, no focal deficits - Skin Skin exam: Present: dry, intact Internal Medicine: Result - Labs CBC & Chem 7: 10/03/16 07:00 10/03/16 07:00 Labs: Short CBC 08/25/17 Range/Units 07:00 WBC 9.5 (4.3-11.1) K/mcL Hgb 11.6 (11.5-15.4) g/dL Hct 37.2 (35.3-44.9) % Plt Count 216 (140-400) K/mcL Neutrophils # 7.8 (1.6-8.9) K/mcL BMP 10/03/16 07:00 Sodium 142 Potassium 3.9 Chloride 111 H Carbon Dioxide 22 BUN 47 H Creatinine 2.36 H Glucose 98 Calcium 9.5 - ABG Interpretation ABG results: PT/INR, D-dimer PT 26.8 Seconds (9.4-12.1) H 10/03/16 03:39 - VTE Reasons for not Prescribing Prophylaxis: Not indicated-Anticoagulated or INR therapeutic Consult Discharge Plan - Plan Additional Instructions: Patient to follow up with Primary Care Provider within 1 week, and to follow up with her telemarketing supervisor. Patient to continue home BB. Due to renal function to D/C lisinopril/hctz. Restart warfarin 2.5 mg Referrals: Dr. Felix Romero MD [Other] (Office will call the patient at home with an appointment date and time. Thank you!!) Cesar Lozano DO [Primary Care Provider] - 10/07/16 11:15 am Dalton Pressley DO [Non-Partnered Physician] - Durga Abreu DO [Partnered Physician] - <Jeromy Ren P - Last Filed: 10/03/16 18:14> Date of Encounter: 10/03/16 - Constitutional Vitals: Temp Pulse Resp BP Pulse Ox 98.1 F 129 24 176/121 92 10/03/16 17:11 10/03/16 17:11 10/03/16 17:11 10/03/16 17:11 10/03/16 17:11 Internal Medicine: Result - Labs CBC & Chem 7: 10/03/16 07:00 10/03/16 07:00 Labs: Short CBC 10/03/16 Range/Units 07:00 WBC 9.5 (4.3-11.1) K/mcL Hgb 11.6 (11.5-15.4) g/dL Hct 37.2 (35.3-44.9) % Plt Count 216 (140-400) K/mcL Neutrophils # 7.8 (1.6-8.9) K/mcL BMP 10/03/16 07:00 Sodium 142 Potassium 3.9 Chloride 111 H Carbon Dioxide 22 BUN 47 H Creatinine 2.36 H Glucose 98 Calcium 9.5 - ABG Interpretation ABG results: PT/INR, D-dimer PT 26.8 Seconds (9.4-12.1) H 10/03/16 03:39 - Attending Attestation I examined this patient and my medical decision-making was reviewed with the Resident Physician. I agree with the documented findings, disposition and treatment plan as described except to the extent set forth below. Trans-esophageal echocardiogram: Stagnated a blood possibility of clot cannot be ruled out. Case discussed with cardiology at length. We will give her 10 mg Cardizem bolus/50 mg Cardizem gtt as per recommendation from cardiology We will transfer patient to stepdown unit.
[2016-10-03] MEDS ORDERED: *HR* Warfarin 2.5 MG TABLET PO ONE ×2 (18:00→19:24)
[2016-10-03] MEDS ORDERED: Warfarin perPT PO PRN ×2 (18:00→19:24)
--- NOTE | 2016-10-03 18:26 | Event Note ---
Date of Encounter: 10/03/16 Time of Encounter: 18:12 Procedure: СВЕТЛАНА Indication: Atrial flutter Anesthesia: Versed 2 mg, Fentanyl 25 mcg. Findings: Prominent spontaneous echo contrast adjacent to and in the left atrial appendage. The spontaneous echo is especially prominent within the appendage and gives the appearance of an organized thrombus. Cardioversion not performed. Continue coumadin and rate control. Recommend transfer to 2N for closer observation.
[2016-10-03] MEDS ORDERED: Metoprolol XL (24 HR) Succ 50 MG TAB.ER.24H PO SCH (18:30)
[2016-10-03] MEDS ORDERED: Naloxone 0.4 MG/ML INJ IVP PRN (19:24)
--- NOTE | 2016-10-03 20:40 | Event Note ---
Date of Encounter: 10/04/16 Time of Encounter: 20:44 Patient transferred to due to a fib/a flutter with evidence of thrombus on СВЕТЛАНА. No cardioversion performed, and patient was restarted on coumadin by Dr. Renteria. Family was concerned that patient's hands were swollen and she has a dry cough. On exam, I was not able to appreciate any significant hand swelling , but lung exam did reveal very mild crackles of bilateral LL. O2 sat in upper 90s on 2L NC. Last CXR was on 09/30/16 and showed cardiomegaly with pulm vascular congestion, no overt edema or consolidation. Patient denies every being diagnosed with CHF. Family states that patient was previously on linsiopril HCTZ, but HCTZ was stopped due to only having one kidney and poor renal function. Will order another CXR for reassessment. Will defer to cardio and daytime hospitalist team to decide if any diuretic treatment will be initiated. If considering starting diuretic, recommend Nephro consult due to CKD. 0016 10/04/16 - XR came back with: Small left pleural effusion with increased opacities at the left base, likely representing infiltrates/atelectasis. This has worsened since the prior exam. Mild pulmonary vascular congestion. Will place patient on levaquin for possible pneumonia. Will still hold on diuresis until cardio and primary team have evaluated in morning. I do not see an echocardiogram in patient history, may need echo but will defer to cardio and primary team. Will go ahead and consult nephrology as patient has only one kidney and poor renal function at baseline. This will need to be a collaborative decision if diuresis is to be started. Chest X-Ray 10/03/16 20:39 IMPRESSION: Small left pleural effusion with increased opacities at the left base, likely representing infiltrates/atelectasis. This has worsened since the prior exam. Mild pulmonary vascular congestion. D/ / Aretha Rice MD / Aretha Rice MD Interpreting Provider: Aretha Rice MD
[2016-10-04] MEDS ORDERED: Levofloxacin 500 MG/100 ML 500 MG/100 ML BAG IVPB SCH (01:00)
[2016-10-04 06:50] LABS: INR 2.3; Prothrombin Time 25.1 Seconds (9.4-12.1)
[2016-10-04 07:04] LABS: Calcium 9.4 mg/dL (8.6-10.8); Potassium 3.8 mEq/L (3.5-4.5)
[2016-10-04 07:05] LABS: Hematocrit 35.7 % (35.3-44.9); Hemoglobin 11.1 g/dL (11.5-15.4); Mean Corpuscular HGB Conc 31.1 g/dL (31.6-35.5); Mean Corpuscular Hemoglobin 27.2 pg (28.0-33.3); Mean Corpuscular Volume 87.5 fL (83.0-100.0); Mean Platelet Volume 10.4 fL (9.4-12.4); Platelet Count 218 K/mcL (140-400); Red Blood Count 4.08 M/mcL (3.82-4.97); Red Cell Distribution Width 15.9 % (11.5-14.5)
[2016-10-04] MEDS: Aspirin Enteric Coated 81 MG Tablet PO SCH (08:39)
--- NOTE | 2016-10-04 11:14 | Cardiology Progress Note ---
Date of Encounter: 10/04/16 Time of Encounter: 11:11 Assessment and Plan (1) Atrial flutter Current Visit: Yes Status: Acute Persistent atrial flutter. Previous RVR, now rate controlled. JODY thrombus noted on СВЕТЛАНА. Recommend continue rate control - changed cardizem to CD 120 mg daily. Titrate cardizem as need. Continue coumadin with a goal INR 2-3. Consider cardioversion after a minimium of 4 weeks of therapeutic anticoagulation. No futher inpatient cardiology recommendations. Cardiology will sign off. Followup with me in clinic in 1-2 weeks. All questions answered. Qualifiers: Atrial flutter type: typical Qualified Code(s): I48.3 - Typical atrial flutter (2) Coronary artery disease Current Visit: Yes Status: Acute [place] CAD, prior CABG. Recommend continue aspirin/statin. Continue cardizem. No chest pain. Mild troponin elevation likely secondary to AFL with RVR and demand ischemia. Qualifiers: Qualified Code(s): I25.10 - Atherosclerotic heart disease of [place] coronary artery without angina pectoris (3) Elevated troponin Current Visit: Yes Status: Acute Mild troponin elevation most likely secondary to her atrial flutter with RVR and demand ischemia. (4) Paroxysmal atrial fibrillation Current Visit: Yes Status: Acute Discussion w patient/family: The assessment and plan as outlined above was discussed with the patient and/or family members who expressed understanding and agreement. All questions were answered. Thank you for involving us in the care of your patient. Please call with any questions. Subjective Principal diagnosis: Atrial flutter, palpitations Interval history: Patient seen/examined earlier this morning. Overall, reported that she was feeling well. No chest pain. Reported very mild shortness of breath. HR much better controlled today - remains on cardizem gtt. As previous, СВЕТЛАНА demonstrated thrombus, no cardioversion performed. Objective Vital Signs, Last 4 Hours Temp Pulse Resp BP Pulse Ox 10/04/16 07:49 77 10/04/16 07:36 97.9 F 70 18 155/80 95 General: Conversant, No Apparent Distress HEENT: Atraumatic, Normocephaly, Mucus Membranes Moist Neck: No JVD, Normal carotid pulses Cardiac: Other (Irregular rate and rhythm. ) Lungs: Other (Shallow, mostly clear. ) Abdomen: Soft, Non-Tender Skin: No rashes noted on visualized skin Musculoskeletal: No Chest Wall Tenderness Extremities: No Clubbing, No Cyanosis, No Edema Results 10/04/16 05:59 10/04/16 05:59 Lab Results 10/04/16 10/04/16 10/04/16 05:59 05:59 05:59 WBC 9.5 Hgb 11.1 L Hct 35.7 Plt Count 218 INR 2.3 Sodium 141 Potassium 3.8 Chloride 110 H Carbon Dioxide 23 BUN 47 H Creatinine 2.25 H Glucose 101 H Calcium 9.4 - Imaging and Cardiology Echo: report reviewed - EKG Interpretation EKG results cardiology: personally reviewed - VTE Reasons for not Prescribing Prophylaxis: Not indicated-Anticoagulated or INR therapeutic Consult Discharge Plan - Plan Additional Instructions: Patient to follow up with Primary Care Provider within 1 week, and to 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 Patient to continue home BB. Due to renal function to D/C lisinopril/hctz. Restart warfarin 2.5 mg Referrals: Dr. Felix Romero MD [Other] (Office will call the patient at home with an appointment date and time. Thank you!!) Cesar Lozano DO [Primary Care Provider] - 10/07/16 11:15 am Dalton Pressley DO [Non-Partnered Physician] - Durga Abreu DO [Partnered Physician] -
--- NOTE | 2016-10-04 11:28 | Internal Med Progress Note ---
<JdRocío joshi - Last Filed: 10/04/16 11:26> Date of Encounter: 10/04/16 Time of Encounter: 11:26 - Assessment and plan (1) Paroxysmal atrial fibrillation Current Visit: Yes Status: Acute Assessment and plan: Patient was supposed to have СВЕТЛАНА cardioversion yesterday but did not have it done due to thrombus in left atrial appendage. Afib/Aflutter. Plan: cardio on board-appreciate recs. continue rate control and coumadin. likely cardioversion can be done outpatient after at [facility] 4 weeks anticoaguation. switched from IV to PO cardizem CD 120 today per cardiology. continue coumadin with INR goal 2-3 discontinued levaquin, no signs of pneumonia or infection currently, levaquin not ideal in setting of renal insufficiency with unknown baseline. obtain two view CXR and monitor. (2) Atrial flutter Current Visit: Yes Status: Acute Assessment and plan: plan as above. Qualifiers: Atrial flutter type: typical Qualified Code(s): I48.3 - Typical atrial flutter (3) Acute on chronic renal insufficiency Current Visit: Yes Status: Acute Assessment and plan: Patient states she has one kidney. No known hx of CKD will follow up with nephrology outpatient. baseline Cr unknown improved slightly with IVF continue to monitor. (4) Coronary artery disease Current Visit: Yes Status: Acute Assessment and plan: [place] CAD, prior CABG, hx of aortic valve replacement per patient. continue ASA/statin Qualifiers: Qualified Code(s): I25.10 - Atherosclerotic heart disease of [place] coronary artery without angina pectoris (5) Elevated troponin Current Visit: Yes Status: Acute Assessment and plan: troponins were stable, no trend in elevation. likely secondary to Afib/Aflutter, ischemia from atrial appendage chest pain free. continue to monitor. (6) DVT prophylaxis Current Visit: Yes Status: Acute Assessment and plan: continue warfarin. - Subjective Interval history: 81 year old female evaluated at bedside. patient denies nausea, vomiting, diarrhea, fever, chills, chest pain. she reports mild intermittent shortness of breath. patient denies any further complaints today. - Constitutional Vitals: Temp Pulse Resp BP Pulse Ox 97.9 F 77 18 155/80 95 10/04/16 07:36 10/04/16 07:49 10/04/16 07:36 10/04/16 07:36 10/04/16 07:36 General appearance: Present: A&O X 3, no acute distress, answers questions appropriately - Head Head exam: Present: atraumatic, normocephalic - Respiratory Additional comments: mild upper lobe wheezing. - Cardiovascular Cardiovascular exam: Present: irregular rhythm, +S1, +S2 - GI/Abdominal GI/Abdominal exam: Present: normal bowel sounds, soft. Absent: distended, tenderness - Extremities Exam Extremities exam: Absent: cyanotic, pedal edema - Neurological Exam Neurological exam: Present: alert, oriented X3, no focal deficits - Psychiatric Psychiatric exam: Present: normal affect, normal mood - Skin Skin exam: Present: intact Internal Medicine: Result - Labs CBC & Chem 7: 10/04/16 05:59 10/04/16 05:59 Labs: Short CBC 10/04/16 Range/Units 05:59 WBC 9.5 (4.3-11.1) K/mcL Hgb 11.1 L (11.5-15.4) g/dL Hct 35.7 (35.3-44.9) % Plt Count 218 (140-400) K/mcL BMP 10/04/16 05:59 Sodium 141 Potassium 3.8 Chloride 110 H Carbon Dioxide 23 BUN 47 H Creatinine 2.25 H Glucose 101 H Calcium 9.4 - ABG Interpretation ABG results: PT/INR, D-dimer PT 25.1 Seconds (9.4-12.1) H 10/04/16 05:59 - Impressions Impressions Chest X-Ray 10/03/16 20:39 IMPRESSION: Small left pleural effusion with increased opacities at the left base, likely representing infiltrates/atelectasis. This has worsened since the prior exam. Mild pulmonary vascular congestion. 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 Patient to continue home BB. Due to renal function to D/C lisinopril/hctz. Restart warfarin 2.5 mg Referrals: Dr. Felix Romero MD [Other] (Office will call the patient at home with an appointment date and time. Thank you!!) Cesar Lozano DO [Primary Care Provider] - 10/07/16 11:15 am Dalton Pressley DO [Non-Partnered Physician] - Durga Abreu DO [Partnered Physician] - <Jeromy Ren P - Last Filed: 10/04/16 13:49> Date of Encounter: 10/04/16 - Constitutional Vitals: Temp Pulse Resp BP Pulse Ox 97.8 F 79 18 172/88 95 10/04/16 11:36 10/04/16 11:36 10/04/16 11:36 10/04/16 11:36 10/04/16 11:36 Internal Medicine: Result - Labs CBC & Chem 7: 10/04/16 05:59 10/04/16 05:59 Labs: Short CBC 10/04/16 Range/Units 05:59 WBC 9.5 (4.3-11.1) K/mcL Hgb 11.1 L (11.5-15.4) g/dL Hct 35.7 (35.3-44.9) % Plt Count 218 (140-400) K/mcL BMP 10/04/16 05:59 Sodium 141 Potassium 3.8 Chloride 110 H Carbon Dioxide 23 BUN 47 H Creatinine 2.25 H Glucose 101 H Calcium 9.4 - ABG Interpretation ABG results: PT/INR, D-dimer PT 25.1 Seconds (9.4-12.1) H 10/04/16 05:59 - Impressions Impressions Chest X-Ray 10/03/16 20:39 IMPRESSION: Small left pleural effusion with increased opacities at the left base, likely representing infiltrates/atelectasis. This has worsened since the prior exam. Mild pulmonary vascular congestion. D/ / Aretha Rice MD / Aretha Rice MD Interpreting Provider: Aretha Rice MD - Attending Attestation I examined this patient and my medical decision-making was reviewed with the Resident Physician. I agree with the documented findings, disposition and treatment plan as described except to the extent set forth below. Cardiology recommendations/input appreciated. We will get x-ray chest PA/lateral. We will hold levofloxacin for now. Close monitoring. Spoke to patient's son-in-law who was at bedside and updated the progress.
[2016-10-04] MEDS ORDERED: Diltiazem CD (24hr) 120 MG CAPSULE PO SCH (11:30)
[2016-10-04] MEDS ORDERED: Furosemide 40 MG/4 ML VIAL IVP ONE (16:13)
--- NOTE | 2016-10-04 16:13 | Event Note ---
Date of Encounter: 10/04/16 Time of Encounter: 16:09 Patient re-evaluated. Overall, feeling well. Mild dyspnea remains. HR 90s. Re: JODY thrombus - Continue coumadin, but change INR goal to 2.5 to 3.5. Recommend weekly monitoring of INR for 6 weeks. We'll consider repeat СВЕТЛАНА at that time. Re: AF - Overall, HR has been well controlled today, but intermittent periods of tachycardia noted. Increase Cardizem CD to 180 mg daily. Give additional 60 mg now. Re: Dyspnea. Mildly reduced breath sounds at the bases. Recommend a low dose of lasix 20 mg IV times one. Re: HTN - Resume zestoretic when okay with primary service. Thanks, Durga Abreu DO, FACC
[2016-10-04] MEDS ORDERED: *HR* Warfarin 5 MG TABLET PO SCH (18:00)
[2016-10-04] MEDS ORDERED: *HR* Warfarin 2.5 MG TABLET PO SCH (18:00)
[2016-10-05 04:37] LABS: Basophils # 0.1 K/mcL (0.0-0.2); Basophils % 0.5 %; Eosinophils # 0.4 K/mcL (0.0-0.6); Eosinophils % 4.2 %; Hemoglobin 10.7 g/dL (11.5-15.4); Immature Granulocytes % 0.3 % (0-4); Lymphocytes # 0.7 K/mcL (0.6-4.6); Lymphocytes % 6.9 %; Mean Corpuscular HGB Conc 32.4 g/dL (31.6-35.5); Mean Corpuscular Hemoglobin 27.9 pg (28.0-33.3); Mean Corpuscular Volume 86.2 fL (83.0-100.0); Monocytes # 0.9 K/mcL (0.0-1.3); Monocytes % 9.7 %; Neutrophils # 7.5 K/mcL (1.6-8.9); Platelet Count 184 K/mcL (140-400); Red Blood Count 3.83 M/mcL (3.82-4.97); Segmented Neutrophils % 78.4 %
[2016-10-05 04:43] LABS: INR 2.6
[2016-10-05 04:47] LABS: Potassium 3.5 mEq/L (3.5-4.5)
[2016-10-05] MEDS: Aspirin Enteric Coated 81 MG Tablet PO SCH (08:37)
[2016-10-05] MEDS ORDERED: Diltiazem CD (24hr) 180 MG CAPSULE PO SCH (09:00)
[2016-10-05 11:46] VITALS: BP 156/94
--- NOTE | 2016-10-05 12:10 | Discharge Summary ---
<Rocío Fletcher - Last Filed: 10/05/16 12:02> Date of Encounter: 10/05/16 Time of Encounter: 12:02 - Discharge Diagnosis (1) Paroxysmal atrial fibrillation Priority: Primary Status: Acute (2) Atrial flutter Priority: Secondary Status: Acute Qualifiers: Atrial flutter type: typical Qualified Code(s): I48.3 - Typical atrial flutter (3) Acute on chronic renal insufficiency Priority: Secondary Status: Acute (4) Coronary artery disease Priority: Secondary Status: Acute Qualifiers: Qualified Code(s): I25.10 - Atherosclerotic heart disease of [place] coronary artery without angina pectoris (5) Elevated troponin Priority: Secondary Status: Acute (6) DVT prophylaxis Priority: Secondary Status: Acute - Discharge Medications Prescriptions: Amoxicillin/Clavulanate [Augmentin] 500 mg PO BID #10 tablet Atorvastatin [Lipitor] 40 mg PO HS #30 tab Diltiazem CD (24hr) [Cardizem CD] 240 mg PO DAILY #30 cap.er.24h Home Medications: Aspirin Enteric Coated [Aspirin EC] 81 mg PO DAILY 09/30/16 [History] Carvedilol [Coreg] 12.5 mg PO BID 09/30/16 [History] Paricalcitol [Zemplar] 2 mcg PO MOWEFR 09/30/16 [History] Warfarin [Coumadin] 2.5 mg PO SUMOWEFRSA 09/30/16 [History] Amoxicillin/Clavulanate [Augmentin] 500 mg PO BID #10 tablet 10/05/16 [Rx] Atorvastatin [Lipitor] 40 mg PO HS #30 tab 10/05/16 [Rx] Diltiazem CD (24hr) [Cardizem CD] 240 mg PO DAILY #30 cap.er.24h 10/05/16 [Rx] Allergies/Adverse Reactions: 3 Allergy/AdvReac Type Severity Reaction Status Date / Time lidocaine AdvReac Mild Palpitation Verified 10/03/16 22:16 s Procedures/tests Complete & Pending: Procedures Performed prior 72 hours Category Date Time Status EKG [ECG 12 lead ECG] [ECG] Stat Y 10/02/16 12:24 Ordered EKG [ECG 12 lead ECG] [ECG] Stat Y 10/03/16 09:06 Ordered EV СВЕТЛАНА transesophageal echo Routine Y 10/03/16 10:44 Completed Date of admission: 09/30/16 22:50 Primary care physician: Cesar Lozano Consults: 10/04/16 00:21 Consult to Nephrology [CONS] Routine Consulting Provider: [facility] Colin JOHNSON Reason for Consult: Hx of CKD and only one kidney. Sees nephrology at outside facility. Patient has effusions on CXR and very mild upper extremity edema but no previous diagnosis of CHF per records. Patient was on Lisinopril HCTZ previously but HCTZ was discontinued due to previous worsening renal function per patient. Would appreciate nephro input/recs before possibl starting back HCTZ or another diuretic such as lasix. Call Completed: No - Patient Status Disposition: Home, Self-Care Condition: Fair Functional capacity at discharge: independent ambulation Overall status at discharge: patient is progressing back to baseline - Discharge Instructions Instructions: Diltiazem (By mouth), Amoxicillin/Clavulanate Potassium (By mouth ), Atorvastatin (By mouth), Atrial Flutter (DC), Atrial Fibrillation (DC) Follow Up With: Dr. Felix Romero MD [Other] (Office will call the patient at home with an appointment date and time. Thank you!!) Cesar Lozano DO [Primary Care Provider] - 10/07/16 11:15 am Dalton Johnson DO [Non-Partnered Physician] - Durga Abreu DO [Partnered Physician] - Additional Instructions: Patient to follow up with Primary Care Provider within 1 week, and to follow up with cardiology. will have outpatient cardioversion done in about 6 weeks per cardiology. Patient to continue home Coreg. Due to renal function to discontinue lisinopril /hctz. Restart warfarin 2.5 mg Take Augmentin twice a day for 5 days for pneumonia. Take cardizem CD 240 daily Follow up with primary care doctor tomorrow to have INR checked. goal INR 2.5- 3.5 stop simvastatin, start atorvastatin. - Diet and Activity Activity: increase activity as tolerated Diet: low fat, low cholesterol Hospital course: Ms. Mendoza is a 81 year old female with PMHx of Afib, malignancy, CAD, HLD, HTN , prior CABG. Patient arrived to [facility] on 09/30/16 with chief complaint of palpitations. She was found to be in Afib with rapid ventricular response and was admitted for further work up and monitoring. She was started on Cardizem gtt. Patient converted to sinus rhythm and was about to be discharged on 10/02, but she became tachycardic again with 2:1 atrial flutter , but AVNRT could not be excluded. At that point, cardiology was consulted and patient was transferred to step down unit for closer monitoring. patient remained in Afib despite cardizem gtt. СВЕТЛАНА cardioversion was scheduled. However , before the procedure, there was a thrombus visualized in left atrial appendage , so cardioversion was not performed due to stroke risk. Patient was transitioned from IV to PO cardizem CD 240mg daily. Plan is to continue anticoagulation with warfarin for a minimum of 6 weeks, and then perform cardioversion as outpatient. Goal INR is between 2.5-3.5 per cardiology. patient will follow up with PCP, and have INR re checked Day after discharge. Her last INR the day of discharge was 2.6. She will follow up outpatient with cardiology. her lisinopril-HCTZ was stopped due to increased serum Cr, unsure if she has baseline CKD or not. she may be evaluated by PCP outpatient regarding whether this medication can be restarted. her simvastatin was switched to atorvastatin, and she will continue oral cardizem and continue her previous beta jd. patient had some mild infiltrates in left lung resembling likely pneumonia, she will be discharged on a five day course of augmentin. all instructions were gone over with patient, and she remained stable upon discharge. Plan: Patient to follow up with Primary Care Provider within 1 week, and to follow up with cardiology. will have outpatient cardioversion done in about 6 weeks per cardiology. Patient to continue home Coreg. Due to renal function to discontinue lisinopril /hctz. Restart warfarin 2.5 mg Take Augmentin twice a day for 5 days for pneumonia. Take cardizem CD 240 daily Follow up with primary care doctor tomorrow to have INR checked. goal INR 2.5- 3.5 stop simvastatin, start atorvastatin. - Time Spent with Patient Total time spent providing and/or coordinating discharge services: - Constitutional Vitals: Temp Pulse Resp BP Pulse Ox 97.7 F 93 18 156/94 96 10/05/16 11:41 10/05/16 11:41 10/05/16 11:41 10/05/16 11:41 10/05/16 11:41 General appearance: Present: A&O X 3, no acute distress, answers questions appropriately - Head Head exam: Present: atraumatic, normocephalic - Neck Neck exam general surgery: Present: supple, trachea midline - Respiratory Respiratory exam: Present: rales Additional comments: diffuse rales present. - Cardiovascular Cardiovascular exam: Present: irregular rhythm - GI/Abdominal GI/Abdominal exam: Present: normal bowel sounds, soft. Absent: distended, tenderness - Extremities Exam Extremities exam: Absent: cyanotic, pedal edema - Neurological Exam Neurological exam: Present: alert, oriented X3, no focal deficits - Psychiatric Psychiatric exam: Present: normal affect, normal mood - VTE Reasons for not Prescribing Prophylaxis: Not indicated-Anticoagulated or INR therapeutic <Jeromy Ren - Last Filed: 10/05/16 17:24> Date of Encounter: 10/05/16 Procedures/tests Complete & Pending: Procedures Performed prior 72 hours Category Date Time Status EKG [ECG 12 lead ECG] [ECG] Stat Y 10/03/16 09:06 Ordered EV СВЕТЛАНА transesophageal echo Routine Y 10/03/16 10:44 Completed Date of admission: 09/30/16 22:50 Primary care physician: Cesar Lozano Consults: 10/04/16 00:21 Consult to Nephrology [CONS] Routine Consulting Provider: [facility] Sp[facility]st ALEX Reason for Consult: Hx of CKD and only one kidney. Sees nephrology at outside facility. Patient has effusions on CXR and very mild upper extremity edema but no previous diagnosis of CHF per records. Patient was on Lisinopril HCTZ previously but HCTZ was discontinued due to previous worsening renal function per patient. Would appreciate nephro input/recs before possibl starting back HCTZ or another diuretic such as lasix. Call Completed: No Hospital course: Ms. Mendoza is a 81 year old female - Time Spent with Patient Total time spent providing and/or coordinating discharge services: - Constitutional Vitals: Temp Pulse Resp BP Pulse Ox 97.7 F 93 18 156/94 96 10/05/16 11:41 10/05/16 11:41 10/05/16 11:41 10/05/16 11:41 10/05/16 11:41 - Attending Attestation I examined this patient and my medical decision-making was reviewed with the Resident Physician. I agree with the documented findings, disposition and treatment plan as described except to the extent set forth below. 81/female Paroxysmal atrial fibrillation. Responded well to Cardizem gtt./oral conversion High possibility of a left atrial appendage thrombus. On Coumadin: Target INR 2.5-3.5 X-ray shows possible pneumonia. Started her on Augmentin and will get PCP to check INR tomorrow She has appointment with PCP on Thursday Cardiology will follow-up in one week Explained at length to daughter that if she is back in A. fib/nausea, vomiting, abdominal pain or diarrhea, then they should bring her back to the emergency department. Daughter verbalize understanding.
[2016-10-05] MEDS ORDERED: Diltiazem SR (12hr) 60 MG CAPSULE PO ONE ×2 (13:15→14:00)
[2016-10-05] MEDS ORDERED: dilTIAZem HCl 60 MG TABLET PO ONE (13:45)
[2016-10-05] MEDS ORDERED: *HR* Warfarin 5 MG TABLET PO ONE (18:00)
--- NOTE | 2016-10-06 09:02 | Electrocardiograph Report ---
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
--- NOTE | 2016-10-06 09:19 | Electrocardiograph Report ---
[place] [address] Test Date: 2016-10-03 Pat Name: Susan Mendoza Department: 112 Room: 2N14 Gender: Uat Tester: : 1935 Requested By: Clemente Arenas Order Number: [id number] Reading MD: Liborio Seaman MD Measurements Intervals [place] Rate: 100 P: [place]: 0 QRS: 136 QRSD: 138 T: 24 QT: 386 QTc: 443 Interpretive Statements ATRIAL FLUTTER/TACHYCARDIA WITH RAPID VENTRICULAR RESPONSE WITH ABERRANT CONDUCTION OR VENTRICULAR PREMATURE COMPLEXES MARKED RIGHT AXIS DEVIATION RIGHT BUNDLE BRANCH BLOCK Electronically Signed On 10-06-2016 9:17:15 EDT by Liborio Seaman MD
--- NOTE | 2016-10-06 13:54 | Electrocardiograph Report ---
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
--- NOTE | 2016-10-06 17:30 | Electrocardiograph Report ---
[place] [address] Test Date: 2016-10-04 Pat Name: Susan Mendoza Department: 110 Room: 2N14 Gender: F Software Implementation Specialist: MARIO : 1935 Requested By: Jeromy Ren Order Number: [id number] Reading MD: April Suarez Measurements Intervals [place] Rate: 72 P: 170 [place]: 82 QRS: 128 QRSD: 148 T: -32 QT: 429 QTc: 454 Interpretive Statements BASELINE ARTIFACT RIGHT BUNDLE BRANCH BLOCK POSSIBLE LIMB LEAD MISPLACEMENT Electronically Signed On 10-06-2016 17:29:05 EDT by April Suarez
--- NOTE | 2016-10-06 17:48 | Electrocardiograph Report ---
[place] [address] Test Date: 2016-10-03 Pat Name: Susan Mendoza Department: 112 Room: 14 Gender: F Control Engineer: : 1935 Requested By: Jeromy Ren Order Number: [id number] Reading MD: April Suarez Measurements Intervals [place] Rate: 98 P: [place]: 0 QRS: 138 QRSD: 141 T: 53 QT: 386 QTc: 441 Interpretive Statements ATRIAL FLUTTER/TACHYCARDIA RIGHT BUNDLE BRANCH BLOCK RIGHT AXIS DEVIATION Electronically Signed On 10-06-2016 17:46:24 EDT by April Suarez
[2016-10-07] MEDS ORDERED: *HR* Warfarin 5 MG TABLET PO SCH (18:00)
== END 2016-10-05 14:30 | disposition home or self-care (01) | DRG 309 ==
LOC: 2ANU 14:37 → EMEROO 14:37 → 2ANU 19:24 → 2NNU 10-03 19:15
PROVIDERS: ADMIT Nurse Practitioner Family; ATTEND Internal Medicine

== ENCOUNTER 2018-05-16 09:44 | Inpatient (IN) ==
--- NOTE | 2018-05-16 10:19 | Emergency Department Note ---
Disposition Clinical Impression: Pneumonia Qualifiers: Pneumonia type: due to unspecified organism Laterality: right Lung location: middle lobe of lung Qualified Code(s): J18.1 - Lobar pneumonia, unspecified organism Disposition: Admitted As Inpatient Condition: Fair Referrals: Cesar Lozano DO [Primary Care Provider] - Forms: ED Satisfaction Letter Time of Disposition: 11:28 SOB HPI - General Chief Complaint: ED Shortness of Breath/Dyspnea Stated Complaint: SAAD Time Seen by Provider: 05/16/18 10:02 Source: patient Mode of arrival: private vehicle Limitations: no limitations Nursing Notes Reviewed: Yes Vital Signs Reviewed: Yes - History of Present Illness Patient is an 83-year-old female with a past medical history of coronary artery disease, atrial fibrillation, kidney cancer, breast cancer presenting today with development of a dry cough since Thursday. Patient has been feeling somewhat short of breath for the last week, was seen by Dr. Mendoza on Thursday who said that she may be a potential pacemaker candidate, but that it may only have a 50% chance of helping with her atrial fibrillation. Patient's A. fib is managed on carvedilol and Coumadin. She states that she was exposed to bronchitis on and is concerned that she may have bronchitis. Patient is denying fevers or chills, chest pain, abdominal pain, nausea, vomiting, diarrhea, constipation, numbness or tingling, weakness, back pain. Patient states that she had to use 2 L of oxygen last night to be able to sleep, she has been unable to lie flat or she gets too short of breath. She is not prescribed oxygen for use at home, she used her 's oxygen. - Related Data Home Medications Medication Instructions Recorded Confirmed Aspirin Enteric Coated [Aspirin EC] 81 mg PO DAILY 09/30/16 09/30/16 Carvedilol [Coreg] 12.5 mg PO BID 09/30/16 10/02/16 Paricalcitol [Zemplar] 2 mcg PO MOWEFR 09/30/16 09/30/16 Warfarin [Coumadin] 2.5 mg PO SUMOWEFRSA 09/30/16 09/30/16 Previous Rx's Medication Instructions Recorded Amoxicillin/Clavulanate [Augmentin] 500 mg PO BID #10 tablet 10/05/16 Atorvastatin [Lipitor] 40 mg PO HS #30 tab 10/05/16 Diltiazem CD (24hr) [Cardizem CD] 240 mg PO DAILY #30 cap.er.24h 10/05/16 Allergies Allergy/AdvReac Type Severity Reaction Status Date / Time sulfamethoxazole Allergy Hives Verified 05/16/18 11:09 [From Bactrim] trimethoprim [From Bactrim] Allergy Hives Verified 05/16/18 11:09 lidocaine AdvReac Mild Palpitation Verified 10/03/16 22:16 s Review of Systems: All systems ED: reviewed and negative except as stated. Constitutional: Denies: fever, chills ENT ED: Denies: ear pain, throat pain Cardiovascular: Denies: chest pain, Reports: palpitations Respiratory: Reports: dry cough, dyspnea Gastrointestinal: Denies: abdominal pain, nausea, vomiting, diarrhea, constipation Genitourinary: Denies: urgency, dysuria, frequency Musculoskeletal: Denies: back pain, neck pain Integumentary: Denies: rash, abrasion Neurological: Denies: headache, weakness, numbness, paresthesias Psychiatric: Denies: anxiety, depression Endocrine: Denies: fatigue, heat or cold intolerance Hematological/Lymphatic: Denies: easy bleeding, easy bruising Allergic/Immunologic: Denies: facial swelling, urticaria Past Medical History - Past Medical History Medical history: Reports: atrial fibrillation, cancer, coronary artery disease, hyperlipidemia, hypertension Surgical history: Reports: cancer surgery, coronary bypass (CABG), heart valve replacement, orthopedic, other Psychiatric history: Reports: anxiety, depression - Social History Smoking Status: Never smoker Smokeless Tobacco Status: No Alcohol use: Reports: none Drug use: Reports: none Physical Exam General: A&O x 3. No acute distress. Well developed, well nourished. Head: atraumatic, normocephalic. ENT: No conjunctival injection, no scleral icterus. PERRLA. EOMI. Oropharynx non- erythematous. mucous membranes moist. Neuro: No focal deficits, no speech deficit, no facial droop, mentating well. BUE/BLE Str 5/5. Pulm: bibasilar crackles with mild expiratory wheeze in left upper lobe Cardio: Irregularly irregular, Chest not tender to palpation. Abd: Soft, non-distended. Normoactive bowel sounds. Non-tender to palpation. No guarding. Non rigid. Extremities: Radial pulses 2+ nelda, dorsalis pedis/posterior tibialis 2+ nelda. No LE edema. No cyanosis, clubbing. Skin: warm, dry, intact. No rashes. Psych: Appropriate mood and affect. Answers questions appropriately. Cooperative with exam. - General Limitations: no limitations General appearance: alert, in no apparent distress Course Course Narrative: Ddx: PNA, bronchitis, pulmonary edema, will obtain CXR, EKG, CBC, BMP, BNP, troponin. - Reevaluation(s) Reevaluation #1: Pt reported to RN that she did not take her carvedilol this morning. Summary report shows she takes 12.5mg. Will order a dose here. Time: 11:09 Vital Signs Temperature 97.4 F L 05/16/18 09:46 Pulse Rate 107 05/16/18 09:46 Respiratory Rate 22 05/16/18 09:46 Blood Pressure 176/81 05/16/18 09:46 O2 Sat by Pulse Oximetry 93 05/16/18 09:46 Temperature 97.4 F L 05/16/18 09:46 Pulse Rate 107 05/16/18 09:46 Respiratory Rate 28 05/16/18 11:08 Blood Pressure 176/81 05/16/18 09:46 O2 Sat by Pulse Oximetry 91 05/16/18 11:08 Oxygen Delivery Oxygen Delivery Room Air Shortness of Breath/Dyspnea - [facility] Narrative Medical decision making narrative: Pts CXR showed increased opacity in RML with concerns for PNA, given pt's increased SOB and oxygen requirement. Pt also reported that she had not taken her carvedilol this morning, so she was given a dose here. She was additionally given azithromycin and rocephin in the department to cover for presumed PNA. Patient was given an opportunity to ask questions at bedside and all of their concerns were addressed. Patient verbalized understanding and agreement with plan of care. Pt remained stable while in the department. - Medical Records Medical records reviewed: Yes I reviewed the patient's medical records. - Lab Data Lab results reviewed: Yes I reviewed the patient's lab results. Result diagrams: 05/16/18 10:15 05/16/18 10:15 Lab Results 05/16/18 05/16/18 05/16/18 Range/Units 10:15 10:15 10:15 WBC 8.3 (4.3-11.1) K/mcL RBC 4.50 (3.82-4.97) M/mcL Hgb 12.2 (11.5-15.4) g/dL Hct 39.2 (35.3-44.9) % MCV 87.1 (83.0-100.0) fL MCH 27.1 L (28.0-33.3) pg MCHC 31.1 L (31.6-35.5) g/dL RDW 18.0 H (11.5-14.5) % Plt Count 237 (140-400) K/mcL MPV 10.4 (9.4-12.4) fL Immature Gran % 0.4 (0-4) % Seg Neutrophils % 82.1 % Lymphocytes % 4.1 % Monocytes % 6.2 % Eosinophils % 6.4 % Basophils % 0.8 % Neutrophils # 6.8 (1.6-8.9) K/mcL Lymphocytes # 0.3 L (0.6-4.6) K/mcL Monocytes # 0.5 (0.0-1.3) K/mcL Eosinophils # 0.5 (0.0-0.6) K/mcL Basophils # 0.1 (0.0-0.2) K/mcL Sodium 136 (136-145) mEq/L Potassium 4.4 (3.5-5.1) mEq/L Chloride 104 (98-107) mEq/L Carbon Dioxide 21 L (23-29) mEq/L BUN 28 H (8-23) mg/dL Creatinine 2.28 H (0.60-1.20) mg/dL Est GFR ( Amer) 25 L (> 60) Est GFR (Non-Af Amer) 20 L (> 60) BUN/Creatinine Ratio 12 (6-26) Glucose 99 (70-105) mg/dL Calculated Osmolality 288 (280-300) Lactic Acid 0.8 (0.5-2.2) mmol/L Calcium 9.5 (8.6-10.3) mg/dL Troponin I < 0.03 (< 0.04) ng/mL B-Natriuretic Peptide (Less than 100) pg/mL 05/16/18 Range/Units 10:15 WBC (4.3-11.1) K/mcL RBC (3.82-4.97) M/mcL Hgb (11.5-15.4) g/dL Hct (35.3-44.9) % MCV (83.0-100.0) fL MCH (28.0-33.3) pg MCHC (31.6-35.5) g/dL RDW (11.5-14.5) % Plt Count (140-400) K/mcL MPV (9.4-12.4) fL Immature Gran % (0-4) % Seg Neutrophils % % Lymphocytes % % Monocytes % % Eosinophils % % Basophils % % Neutrophils # (1.6-8.9) K/mcL Lymphocytes # (0.6-4.6) K/mcL Monocytes # (0.0-1.3) K/mcL Eosinophils # (0.0-0.6) K/mcL Basophils # (0.0-0.2) K/mcL Sodium (136-145) mEq/L Potassium (3.5-5.1) mEq/L Chloride (98-107) mEq/L Carbon Dioxide (23-29) mEq/L BUN (8-23) mg/dL Creatinine (0.60-1.20) mg/dL Est GFR ( Amer) (> 60) Est GFR (Non-Af Amer) (> 60) BUN/Creatinine Ratio (6-26) Glucose (70-105) mg/dL Calculated Osmolality (280-300) Lactic Acid (0.5-2.2) mmol/L Calcium (8.6-10.3) mg/dL Troponin I (< 0.04) ng/mL B-Natriuretic Peptide 773 H (Less than 100) pg/mL - Radiology Data Radiology results reviewed: Yes I reviewed the patient's radiology results. Chest X-Ray 05/16/18 10:00 IMPRESSION: Mild patchy/streaky airspace opacity to the right mid lung zone may relate to atelectasis or developing pneumonia. Follow-up to resolution recommended. Mild diffuse interstitial prominence may reflect chronic interstitial changes or could reflect acute interstitial process such as interstitial edema or atypical pneumonia. Small bilateral pleural effusions. Stable mild cardiomegaly. D/ / 05/16/2018 10:35:25 Steve Santos MD / [facility] Interpreting Provider: Steve Santos MD - EKG Data EKG attestation: Yes I reviewed and interpreted this EKG. EKG results narrative: HR 118, rhythm atrial fibrillation, axis right. QRS 135 and prolonged, QTc 491. RSR' in V2/V3. RBBB. No clinically significant ST segment elevation or depression in any contiguous leads.
[2018-05-16] MEDS ORDERED: 0.9 % Sodium Chloride 500 ML IVC ONE (10:20)
[2018-05-16] MEDS ORDERED: Ipratropium/Albuterol Neb 3 ML IH ONE (10:20)
[2018-05-16 10:29] LABS: Basophils # 0.1 K/mcL (0.0-0.2); Basophils % 0.8 %; Eosinophils # 0.5 K/mcL (0.0-0.6); Eosinophils % 6.4 %; Hematocrit 39.2 % (35.3-44.9); Hemoglobin 12.2 g/dL (11.5-15.4); Immature Granulocytes % 0.4 % (0-4); Lymphocytes # 0.3 K/mcL (0.6-4.6); Lymphocytes % 4.1 %; Mean Corpuscular HGB Conc 31.1 g/dL (31.6-35.5); Mean Corpuscular Hemoglobin 27.1 pg (28.0-33.3); Mean Corpuscular Volume 87.1 fL (83.0-100.0); Mean Platelet Volume 10.4 fL (9.4-12.4); Monocytes # 0.5 K/mcL (0.0-1.3); Monocytes % 6.2 %; Neutrophils # 6.8 K/mcL (1.6-8.9); Platelet Count 237 K/mcL (140-400); Segmented Neutrophils % 82.1 %
[2018-05-16] MEDS ORDERED: Azithromycin 500 MG in D5% in Water 250 ML IVPB ONE (10:38)
[2018-05-16] MEDS ORDERED: cefTRIAXone 1,000 MG in 0.9 % Sodium Chloride Mini Bag 100 ML IVPB ONE (10:38)
[2018-05-16 10:52] LABS: BUN/Creatinine Ratio 12 (6-26); Blood Urea Nitrogen 28 mg/dL (8-23); Calcium 9.5 mg/dL (8.6-10.3); Carbon Dioxide 21 mEq/L (23-29); Chloride 104 mEq/L (98-107); Glucose 99 mg/dL (70-105); Osmolality,Calculated 288 (280-300); Potassium 4.4 mEq/L (3.5-5.1); Sodium 136 mEq/L (136-145); Troponin I < 0.03 ng/mL (< 0.04); eGFR For Non-African Americans 20 (> 60)
--- NOTE | 2018-05-16 11:17 | Emergency Department Note ---
Disposition Clinical Impression: Pneumonia Qualifiers: Pneumonia type: due to unspecified organism Laterality: right Lung location: middle lobe of lung Qualified Code(s): J18.1 - Lobar pneumonia, unspecified organism Disposition: Admitted As Inpatient Forms: ED Satisfaction Letter General Adult HPI - General Chief complaint: ED Shortness of Breath/Dyspnea Stated complaint: SAAD Time Seen by Provider: 05/16/18 10:02 Source: patient Mode of arrival: private vehicle Limitations: no limitations - History of Present Illness Pain Scale: 0 - Related Data Home Medications Medication Instructions Recorded Confirmed Aspirin Enteric Coated [Aspirin EC] 81 mg PO DAILY 09/30/16 09/30/16 Carvedilol [Coreg] 12.5 mg PO BID 09/30/16 10/02/16 Paricalcitol [Zemplar] 2 mcg PO MOWEFR 09/30/16 09/30/16 Warfarin [Coumadin] 2.5 mg PO SUMOWEFRSA 09/30/16 09/30/16 Previous Rx's Medication Instructions Recorded Amoxicillin/Clavulanate [Augmentin] 500 mg PO BID #10 tablet 10/05/16 Atorvastatin [Lipitor] 40 mg PO HS #30 tab 10/05/16 Diltiazem CD (24hr) [Cardizem CD] 240 mg PO DAILY #30 cap.er.24h 10/05/16 Allergies Allergy/AdvReac Type Severity Reaction Status Date / Time sulfamethoxazole Allergy Hives Verified 05/16/18 11:09 [From Bactrim] trimethoprim [From Bactrim] Allergy Hives Verified 05/16/18 11:09 lidocaine AdvReac Mild Palpitation Verified 10/03/16 22:16 s Past Medical History - Past Medical History Medical history: Reports: atrial fibrillation, cancer, coronary artery disease, hyperlipidemia, hypertension Surgical history: Reports: cancer surgery, coronary bypass (CABG), heart valve replacement, orthopedic, other Psychiatric history: Reports: anxiety, depression - Social History Smoking Status: Never smoker Smokeless Tobacco Status: No Alcohol use: Reports: none Drug use: Reports: none Physical Exam - General Limitations: no limitations General appearance: alert, in no apparent distress Course Vital Signs Temperature 97.4 F L 05/16/18 09:46 Pulse Rate 107 05/16/18 09:46 Respiratory Rate 22 05/16/18 09:46 Blood Pressure 176/81 05/16/18 09:46 O2 Sat by Pulse Oximetry 93 05/16/18 09:46 Temperature 97.4 F L 05/16/18 09:46 Pulse Rate 107 05/16/18 09:46 Respiratory Rate 22 05/16/18 09:46 Blood Pressure 176/81 05/16/18 09:46 O2 Sat by Pulse Oximetry 93 05/16/18 09:46 Oxygen Delivery Oxygen Delivery Room Air Medical Decision Making - Lab Data Result diagrams: 05/16/18 10:15 05/16/18 10:15 Lab Results 05/16/18 05/16/18 05/16/18 Range/Units 10:15 10:15 10:15 WBC 8.3 (4.3-11.1) K/mcL RBC 4.50 (3.82-4.97) M/mcL Hgb 12.2 (11.5-15.4) g/dL Hct 39.2 (35.3-44.9) % MCV 87.1 (83.0-100.0) fL MCH 27.1 L (28.0-33.3) pg MCHC 31.1 L (31.6-35.5) g/dL RDW 18.0 H (11.5-14.5) % Plt Count 237 (140-400) K/mcL MPV 10.4 (9.4-12.4) fL Immature Gran % 0.4 (0-4) % Seg Neutrophils % 82.1 % Lymphocytes % 4.1 % Monocytes % 6.2 % Eosinophils % 6.4 % Basophils % 0.8 % Neutrophils # 6.8 (1.6-8.9) K/mcL Lymphocytes # 0.3 L (0.6-4.6) K/mcL Monocytes # 0.5 (0.0-1.3) K/mcL Eosinophils # 0.5 (0.0-0.6) K/mcL Basophils # 0.1 (0.0-0.2) K/mcL Sodium 136 (136-145) mEq/L Potassium 4.4 (3.5-5.1) mEq/L Chloride 104 (98-107) mEq/L Carbon Dioxide 21 L (23-29) mEq/L BUN 28 H (8-23) mg/dL Creatinine 2.28 H (0.60-1.20) mg/dL Est GFR ( Amer) 25 L (> 60) Est GFR (Non-Af Amer) 20 L (> 60) BUN/Creatinine Ratio 12 (6-26) Glucose 99 (70-105) mg/dL Calculated Osmolality 288 (280-300) Lactic Acid 0.8 (0.5-2.2) mmol/L Calcium 9.5 (8.6-10.3) mg/dL Troponin I < 0.03 (< 0.04) ng/mL B-Natriuretic Peptide (Less than 100) pg/mL 05/16/18 Range/Units 10:15 WBC (4.3-11.1) K/mcL RBC (3.82-4.97) M/mcL Hgb (11.5-15.4) g/dL Hct (35.3-44.9) % MCV (83.0-100.0) fL MCH (28.0-33.3) pg MCHC (31.6-35.5) g/dL RDW (11.5-14.5) % Plt Count (140-400) K/mcL MPV (9.4-12.4) fL Immature Gran % (0-4) % Seg Neutrophils % % Lymphocytes % % Monocytes % % Eosinophils % % Basophils % % Neutrophils # (1.6-8.9) K/mcL Lymphocytes # (0.6-4.6) K/mcL Monocytes # (0.0-1.3) K/mcL Eosinophils # (0.0-0.6) K/mcL Basophils # (0.0-0.2) K/mcL Sodium (136-145) mEq/L Potassium (3.5-5.1) mEq/L Chloride (98-107) mEq/L Carbon Dioxide (23-29) mEq/L BUN (8-23) mg/dL Creatinine (0.60-1.20) mg/dL Est GFR ( Amer) (> 60) Est GFR (Non-Af Amer) (> 60) BUN/Creatinine Ratio (6-26) Glucose (70-105) mg/dL Calculated Osmolality (280-300) Lactic Acid (0.5-2.2) mmol/L Calcium (8.6-10.3) mg/dL Troponin I (< 0.04) ng/mL B-Natriuretic Peptide 773 H (Less than 100) pg/mL Attestation Statement - Attestation Attestation: I examined this patient and my medical decision-making was reviewed with the Resident Physician. I agree with the documented findings, disposition and treatment plan as described except to the extent set forth below. 83 year old female presnts to the ED with complaints of dyspnea and has been using supplemental oxygen from her husabnd and has a histroy fo afib that otherwise is rate conrollerd and anticoagulation therapy. It appears that she may have been exposed to pneumonia and this is confrimed on CXR. We will start ABX for atypicals and then admit to medicine. Although she meets SIRs criteria she is not in septic shock thus not requiring the 30ml/kg IVF
--- NOTE | 2018-05-16 11:29 | Internal Med History&Physical ---
Date of Encounter: 05/17/18 Time of Encounter: 11:29 Internal Medicine - H&P: HPI Chief complaint: Shortness of breath History of present illness: 83-year-old female with a past medical history of coronary artery disease, atrial fibrillation, kidney cancer, breast cancer presenting dry cough associated with short of breath. The patient has history of A. fib , and is on chronic anticoagulation with Coumadin. Patient is denying fevers or chills, chest pain, abdominal pain, nausea, vomiting, diarrhea, constipation, numbness or tingling, weakness, back pain. The patient stated that she was very short of breath last night to the extent she has to use her oxygen to be able to sleep. The patient was evaluated by the ER and imaging studies suggested possib le pneumonia she was admitted for further evaluation and management. Past Med Surg Social Fam HX - Past Medical History Medical history: atrial fibrillation, cancer, coronary artery disease, hyperlipidemia, hypertension Additional medical history: kidney cancer. breast cancer Psychiatric history: anxiety, depression - Past Surgical History Surgical History: cancer surgery, coronary bypass (CABG), heart valve replacement, orthopedic, other Additional surgical history: right kidney removal 2010. valve replacement - Social History Smoking Status: Never smoker Smokeless Tobacco Status: No Alcohol use: none Drug use: none - Family History Mother Hx Family Cardiac Disorders: Yes (Stroke) Internal Medicine - H&P: Meds Aspirin Enteric Coated [Aspirin EC] 81 mg PO DAILY 09/30/16 [History] Carvedilol [Coreg] 12.5 mg PO BID 09/30/16 [History] Paricalcitol [Zemplar] 2 mcg PO MOWEFR 09/30/16 [History] Warfarin [Coumadin] 2.5 mg PO SUMOWEFRSA 09/30/16 [History] Atorvastatin [Lipitor] 40 mg PO HS #30 tab 10/05/16 [Rx] Cyclobenzaprine [Flexeril] 5 mg PO PRN 05/16/18 [History] Diltiazem CD (24hr) [Cardizem CD] 120 mg PO DAILY 05/16/18 [History] Tizanidine HCl [Zanaflex] 2 mg PO BID 05/16/18 [History] Allergy/AdvReac Type Severity Reaction Status Date / Time sulfamethoxazole Allergy Hives Verified 05/16/18 11:09 [From Bactrim] trimethoprim [From Bactrim] Allergy Hives Verified 05/16/18 11:09 lidocaine AdvReac Mild Palpitation Verified 10/03/16 22:16 s All Systems PM: A 10-system review of systems was performed and is negative for pertinent findings except as documented above in the HPI. - Constitutional Constitutional: no chills, no fever(s), no night sweats - EENT Eyes: no change in vision, no discharge, no pain, no photophobia Ears: no ear discharge, no ear pain, no tinnitus Nose, mouth and throat: no dysphagia, no nasal discharge, no neck pain, no sore throat - Cardiovascular Cardiovascular ROS IM: no chest pain, no diaphoresis, no dyspnea, no lightheadedness, no palpitations, no syncope - Respiratory Respiratory: no cough, no dyspnea, no wheezing, no excessive phlegm production - Gastrointestinal Gastrointestinal: no abdominal pain, no diarrhea, no hematemesis, no hematochezia, no melena, no nausea, no vomiting - Genitourinary Genitourinary: no change in urinary stream, no dysuria, no flank pain, no hematuria - Musculoskeletal Musculoskeletal ROS IM: no numbness, no tingling - Integumentary Integumentary IM: no rash, no unusual bruising - Neurological Neurological ROS: no confusion, no convulsions, no focal weakness, no numbness, no tingling, no tremor(s) - Hematologic/Lymphatic Hematologic/Lymphatic: no easy bruising - Constitutional Vitals: Temp Pulse Resp BP Pulse Ox 97.4 F L 107 28 176/81 91 05/16/18 09:46 05/16/18 09:46 05/16/18 11:08 05/16/18 09:46 05/16/18 11:08 Exam: as below - Head Head exam: Present: atraumatic, normocephalic - Eye Eye exam: Present: PERRL, conjuntiva pink, sclera anicteric Pupils: Present: PERRL - Neck Neck exam general surgery: Present: supple, trachea midline. Absent: lympha denopathy - Respiratory Respiratory exam: Present: rhonchi. Absent: accessory muscle use, rales, wheezes - Cardiovascular Cardiovascular exam: Present: RRR, +S1, +S2. Absent: diastolic murmur, gallop, rubs, systolic murmur - GI/Abdominal GI/Abdominal exam: Present: normal bowel sounds, soft, no peritoneal signs. Absent: distended, tenderness - Extremities Exam Extremities exam: Present: warm, radial pulses palpable and symmetrical. Abse nt: calf tenderness, cyanotic, pedal edema - Neurological Exam Neurological exam: Present: CN II-XII intact, oriented X3, no focal deficits. Absent: pronater drift, facial droop, speech deficit - Skin Skin exam: Present: dry, intact Internal Med - H&P Results - Labs CBC & Chem 7: 05/17/18 03:03 05/17/18 03:03 Labs: Short CBC 05/16/18 Range/Units 10:15 WBC 8.3 (4.3-11.1) K/mcL Hgb 12.2 (11.5-15.4) g/dL Hct 39.2 (35.3-44.9) % Plt Count 237 (140-400) K/mcL Neutrophils # 6.8 (1.6-8.9) K/mcL BMP 05/16/18 10:15 Sodium 136 Potassium 4.4 Chloride 104 Carbon Dioxide 21 L BUN 28 H Creatinine 2.28 H Glucose 99 Calcium 9.5 Cardiac Enzymes 05/16/18 Range/Units 10:15 Troponin I < 0.03 (< 0.04) ng/mL - Impressions ITS Impressions Chest X-Ray 05/16/18 10:00 IMPRESSION: Mild patchy/streaky airspace opacity to the right mid lung zone may relate to atelectasis or developing pneumonia. Follow-up to resolution recommended. Mild diffuse interstitial prominence may reflect chronic interstitial changes or could reflect acute interstitial process such as interstitial edema or atypical pneumonia. Small bilateral pleural effusions. Stable mild cardiomegaly. D/ / 05/16/2018 10:35:25 Steve Santos MD / [facility] Interpreting Provider: Steve Santos MD - Assessment and Plan (1) Pneumonia Current Visit: Yes Status: Acute Assessment and plan: Questionable a typical Pneumonia - Blood Cx - Urine Legionella antigen - Antibiotics - CBCD, CMP in AM - Tylenol 650 mg PO q 4-6 hr PRN pain or fever (2) Hypertension Current Visit: No Status: Acute Assessment and plan: We will continue home medication Qualifiers: Qualified Code(s): I10 - Essential (primary) hypertension (3) Hyperlipidemia Current Visit: No Status: Acute Qualifiers: Qualified Code(s): E78.5 - Hyperlipidemia, unspecified (4) Coronary artery disease Current Visit: No Status: Acute Qualifiers: Qualified Code(s): I25.10 - Atherosclerotic heart disease of [place] coronary artery without angina pectoris (5) Paroxysmal atrial flutter Current Visit: No Status: Acute Assessment and plan: The patient have history of paroxysmal atrial flutter as well as JODY thrombus that was noted on СВЕТЛАНА in thousand and 17. We will continue Cardizem as well as anticoagulation with Coumadin, the patient stated that she has seen Dr. Mendoza recently and he discussed with her the possibility of benefiting from pacemaker liver as better her he stated that he was not quite sure if this is would help her at atrial flutter (6) Dehydration Current Visit: No Status: Acute (7) CKD (chronic kidney disease) Current Visit: Yes Status: Acute Assessment and plan: The patient has a history of chronic kidney disease, creatinine is around baseline we will continue to monitor renal function, renal dosing of medication, avoid nephrotoxic meds Qualifiers: Qualified Code(s): N18.9 - Chronic kidney disease, unspecified (8) DVT prophylaxis Current Visit: No Status: Acute Assessment and plan: Patient is on chronic anticoagulations Coumadin - Time Spent With Patient Total time spent is greater than 50% in coordination of care (as documented) at patient's floor/unit and/or counseling patient:
[2018-05-16] MEDS ORDERED: Naloxone 0.4 MG/ML INJ IVP PRN ×2 (11:39)
[2018-05-16] MEDS ORDERED: Acetaminophen 325 MG TABLET PO PRN (11:39)
[2018-05-16] MEDS ORDERED: Ondansetron 4 MG/2 ML VIAL IVP PRN (11:39)
[2018-05-16] MEDS ORDERED: Mag Hydrox/Al Hydrox/Simeth 30 ML UDC PO PRN (11:39)
[2018-05-16] MEDS ORDERED: *HR* HYDROcodone/Acet 5/325 mg TABLET PO PRN (11:39)
[2018-05-16] MEDS: 0.9 % Sodium Chloride 1,000 ML IVC SCH ×2 (11:58→20:33)
[2018-05-16] MEDS ORDERED: *HR* Warfarin 2.5 MG TABLET PO SCH (16:15)
[2018-05-16] MEDS: Ipratropium/Albuterol Neb 3 ML IH SCH ×2 (16:48→20:11)
[2018-05-16 17:24] LABS: INR 3.2; Prothrombin Time 35.8 Seconds (9.4-12.1)
[2018-05-16] MEDS: Aspirin Enteric Coated 81 MG Tablet PO SCH (17:55)
[2018-05-16] MEDS: Diltiazem CD (24hr) 120 MG CAPSULE PO SCH (17:56)
[2018-05-16] MEDS ORDERED: Chloraseptic Spray 177 ML BOTTLE MM PRN (19:49)
[2018-05-16] MEDS ORDERED: tiZANidine 4 MG TABLET PO SCH (21:00)
[2018-05-16] MEDS ORDERED: Warfarin perPT PO PRN (21:04)
[2018-05-16] MEDS ORDERED: *HR* Warfarin 2 MG TABLET PO ONE (21:16)
[2018-05-17] MEDS: Ipratropium/Albuterol Neb 3 ML IH SCH ×7 (00:10→23:33)
[2018-05-17 03:52] LABS: Hematocrit 36.2 % (35.3-44.9); Hemoglobin 11.2 g/dL (11.5-15.4); Mean Corpuscular HGB Conc 30.9 g/dL (31.6-35.5); Mean Corpuscular Hemoglobin 27.3 pg (28.0-33.3); Mean Corpuscular Volume 88.1 fL (83.0-100.0); Mean Platelet Volume 10.7 fL (9.4-12.4); Platelet Count 222 K/mcL (140-400); Red Blood Count 4.11 M/mcL (3.82-4.97); Red Cell Distribution Width 17.9 % (11.5-14.5)
[2018-05-17 04:03] LABS: INR 2.9; Prothrombin Time 32.2 Seconds (9.4-12.1)
[2018-05-17 04:05] LABS: Activated Partial Thrombo Time 41.4 Seconds (26.0-36.0)
[2018-05-17 04:15] LABS: Chol/HDL Ratio 3.4 (0-4.9)
[2018-05-17 04:16] LABS: Albumin 3.4 g/dL (3.5-5.7); Albumin/Globulin Ratio 1.1 (1.1-2.2); Bilirubin,Total 0.8 mg/dL (0.3-1.0); Calcium 8.7 mg/dL (8.6-10.3); Globulin 3.2 g/dL (2.4-3.5); Magnesium 1.8 mg/dL (1.6-2.6); Phosphorous 3.3 mg/dL (2.7-4.5); Potassium 4.3 mEq/L (3.5-5.1); Total Protein 6.6 g/dL (6.4-8.9); Troponin I 0.03 ng/mL (< 0.04)
[2018-05-17] MEDS ORDERED: Menthol 9.1 MG LOZENGE PO PRN (05:51)
[2018-05-17] MEDS: Diltiazem CD (24hr) 120 MG CAPSULE PO SCH (05:55)
--- NOTE | 2018-05-17 09:23 | Internal Med Progress Note ---
<Adria Patino - Last Filed: 05/17/18 13:06> Hospitalist Progress Note - Encounter Date of Encounter: 05/17/18 Time of Encounter: 09:00 - Subjective Interval History: Mrs. Mendoza is a 83F PMHx CAD, atrial fibrillation on chronic anticoagulation with coumadin, kidney cancer, breast cancer who presented on 05/16/18 with dry cough associated with SOB. CXR was significant for RML pneumonia. She received dose of Rocephin and azithromycin in the ED. Today, patient continues to experience SOB throughout the night and this morning. She did require CPAP last night. Admits to fatigue. Denies fevers, chills, nausea, or vomiting. Voiding without difficulty. She has difficulty sleeping last night due to coughing with sputum. - Exam Vitals: Temp Pulse Resp BP Pulse Ox 97.8 F 95 18 178/84 96 05/17/18 07:32 05/17/18 07:32 05/17/18 07:32 05/17/18 07:32 05/17/18 07:32 Exam: General appearance: Present: A&O X 3 Exam: below - Head Head exam: Present: atraumatic, normocephalic - Eye Eye exam: conjuntiva pink, sclera anicteric, EOMI - Neck Neck exam general surgery: Present: supple, trachea midline. Absent: lymphadenopathy - Respiratory Respiratory exam: Present: wheezing in all [place]. Absent: accessory muscle use, rales, rhonchi - Cardiovascular Cardiovascular exam: Present: RRR, +S1, +S2. Absent: diastolic murmur, gallop, rubs, systolic murmur - GI/Abdominal GI/Abdominal exam: Present: normal bowel sounds, soft, no peritoneal signs. Absent: distended, tenderness - Extremities Exam Extremities exam: Present: warm, radial pulses palpable and symmetrical. Absent: calf tenderness, cyanotic, pedal edema - Neurological Exam Neurological exam: Present: CN II-XII intact, oriented X3, no focal deficits. Absent: pronater drift, facial droop, speech deficit - Skin Skin exam: Present: dry, intact - Assessment and Plan (1) Pneumonia Current Visit: Yes Status: Acute Assessment and Plan: Acute RML pneumonia unimproved from yesterday - Blood Cx pending - Continue with Azythromycin day#2. Will add another dose of 1g Rocephin IV today. - CBC, CMP in AM - Tylenol 650 mg PO q 4-6 hr PRN pain or fever (2) Paroxysmal atrial flutter Current Visit: No Status: Acute Assessment and plan: The patient have history of paroxysmal atrial flutter as well as JODY thrombus that was noted on СВЕТЛАНА in 2017 Patient's HR ranging 100s-130s. Will give dose of 30mg PO cardizem today. Increase to 180 PO cardizem daily starting tomorrow morning. Patient also on Coreg 12.5mg PO BID. Continue anticoagulation with Coumadin. Continue cardiac monitoring and cardiac diet. (3) Hypertension Current Visit: No Status: Acute Assessment and plan: elevated We will continue home medication Qualifiers: Qualified Code(s): I10 - Essential (primary) hypertension (4) Hyperlipidemia Current Visit: No Status: Acute Qualifiers: Qualified Code(s): E78.5 - Hyperlipidemia, unspecified (5) Coronary artery disease Current Visit: No Status: Acute Qualifiers: Qualified Code(s): I25.10 - Atherosclerotic heart disease of [place] coronary artery without angina pectoris (6) Dehydration Current Visit: No Status: Acute (7) CKD (chronic kidney disease) Current Visit: Yes Status: Acute Assessment and plan: The patient has a history of chronic kidney disease, creatinine is around baseline we will continue to monitor renal function, renal dosing of medication, avoid nephrotoxic meds Qualifiers: Qualified Code(s): N18.9 - Chronic kidney disease, unspecified (8) Chronic insomnia Current Visit: Yes Status: Acute Trial melatonin. (9) DVT prophylaxis Current Visit: No Status: Acute Assessment and plan: Patient is on chronic anticoagulations Coumadin - Time Spent with Patient Total time spent is greater than 50% in coordination of care (as documented) at patient's floor/unit and/or counseling patient: 25 - 35 minutes Plan of Care Discussed with: family Internal Medicine: Result - Labs CBC & Chem 7: 05/17/18 03:03 05/17/18 03:03 Labs: Short CBC 05/16/18 05/17/18 Range/Units 10:15 03:03 WBC 8.3 6.0 (4.3-11.1) K/mcL Hgb 12.2 11.2 L (11.5-15.4) g/dL Hct 39.2 36.2 (35.3-44.9) % Plt Count 237 222 (140-400) K/mcL Neutrophils # 6.8 (1.6-8.9) K/mcL BMP 05/16/18 05/17/18 10:15 03:03 Sodium 136 136 Potassium 4.4 4.3 Chloride 104 109 H Carbon Dioxide 21 L 19 L BUN 28 H 28 H Creatinine 2.28 H 2.13 H Glucose 99 98 Calcium 9.5 8.7 Cardiac Enzymes 05/16/18 05/16/18 05/16/18 Range/Units 10:15 16:18 22:16 Troponin I < 0.03 < 0.03 < 0.03 (< 0.04) ng/mL 05/17/18 Range/Units 03:03 Troponin I 0.03 (< 0.04) ng/mL Liver Function 05/17/18 Range/Units 03:03 Total Bilirubin 0.8 (0.3-1.0) mg/dL AST 14 (13-39) Units/L ALT 10 (7-52) Units/L Alkaline Phosphatase 91 (34-104) Units/L Albumin 3.4 L (3.5-5.7) g/dL - ABG Interpretation ABG results: PT/INR, D-dimer PT 32.2 Seconds (9.4-12.1) H 05/17/18 03:03 - Impressions Impressions Chest X-Ray 05/16/18 10:00 IMPRESSION: Mild patchy/streaky airspace opacity to the right mid lung zone may relate to atelectasis or developing pneumonia. Follow-up to resolution recommended. Mild diffuse interstitial prominence may reflect chronic interstitial changes or could reflect acute interstitial process such as interstitial edema or atypical pneumonia. Small bilateral pleural effusions. Stable mild cardiomegaly. D/ / 05/16/2018 10:35:25 Steve Santos MD / earnold Interpreting Provider: Steve Santos MD Consult Discharge Plan - Plan Referrals: Cesar Lozano DO [Primary Care Provider] - 05/20/18 10:30 am <Ben Kellogg - Last Filed: 05/17/18 15:44> Hospitalist Progress Note - Encounter Date of Encounter: 05/17/18 - Exam Vitals: Temp Pulse Resp BP Pulse Ox 97.7 F 91 16 142/82 97 05/17/18 12:53 05/17/18 12:53 05/17/18 12:53 05/17/18 12:53 05/17/18 12:53 - Assessment and Plan (1) Dehydration Current Visit: No Status: Acute (2) Paroxysmal atrial flutter Current Visit: No Status: Acute (3) Hypertension Current Visit: No Status: Acute (4) Hyperlipidemia Current Visit: No Status: Acute (5) Coronary artery disease Current Visit: No Status: Acute (6) DVT prophylaxis Current Visit: No Status: Acute (7) Pneumonia Current Visit: Yes Status: Acute (8) CKD (chronic kidney disease) Current Visit: Yes Status: Acute - Time Spent with Patient Total time spent is greater than 50% in coordination of care (as documented) at patient's floor/unit and/or counseling patient: Internal Medicine: Result - Labs CBC & Chem 7: 05/17/18 03:03 05/17/18 03:03 Labs: Short CBC 05/17/18 Range/Units 03:03 WBC 6.0 (4.3-11.1) K/mcL Hgb 11.2 L (11.5-15.4) g/dL Hct 36.2 (35.3-44.9) % Plt Count 222 (140-400) K/mcL BMP 05/17/18 03:03 Sodium 136 Potassium 4.3 Chloride 109 H Carbon Dioxide 19 L BUN 28 H Creatinine 2.13 H Glucose 98 Calcium 8.7 Cardiac Enzymes 05/16/18 05/16/18 05/17/18 Range/Units 16:18 22:16 03:03 Troponin I < 0.03 < 0.03 0.03 (< 0.04) ng/mL Liver Function 05/17/18 Range/Units 03:03 Total Bilirubin 0.8 (0.3-1.0) mg/dL AST 14 (13-39) Units/L ALT 10 (7-52) Units/L Alkaline Phosphatase 91 (34-104) Units/L Albumin 3.4 L (3.5-5.7) g/dL - ABG Interpretation ABG results: PT/INR, D-dimer PT 32.2 Seconds (9.4-12.1) H 05/17/18 03:03 - Attending Attestation I examined this patient and my medical decision-making was reviewed with the Resident Physician Dr. Patino. I agree with the documented findings, disposition and treatment plan as described except to the extent set forth below. Ms. Mendoza 83 y/o F with known past medical history of CAD, paroxysmal atrial fibrillation on Coumadin for anticoagulation patient presented to ER with cough with expectoration and progressive worsening shortness of breath. Her chest x- ray showed right middle lobe pneumonia. Patient still looks very weak and lethargic. She denied an active chest pain. Still having cough and moderate shortness of breath, dyspnea on exertion. Currently she is on 2 lit oxygen. Gen: A, A, O x3 Chest: Diminished BS b/l, moderate wheezing, no crackles, ronchi++ Heart S1S2+ Tachycardia, No murmurs a/p 1. Acute RML PNA - mostly bacterial 2. Acute COPD exacerbation 3. Acute hypoxic resp failure on empirical abx Azithromycin + will add Rocephin started on systemic steroids cont duoneb try to wean her off the O2 as she tolerates 3. Paroxysmal A fib Rate fairly controlled due to resp failure Inc Cardizem to 180mg on Coumadin for anti coag <Adria Patino - Last Filed: 05/17/18 13:06> (1) Pneumonia Qualifiers: Pneumonia type: due to unspecified organism Laterality: right Lung location: middle lobe of lung Qualified Code(s): J18.1 - Lobar pneumonia, unspecified organism <Ben Kellogg - Last Filed: 05/17/18 15:44> (3) Hypertension Qualifiers: Qualified Code(s): I10 - Essential (primary) hypertension (4) Hyperlipidemia Qualifiers: Qualified Code(s): E78.5 - Hyperlipidemia, unspecified (5) Coronary artery disease Qualifiers: Qualified Code(s): I25.10 - Atherosclerotic heart disease of [place] coronary artery without angina pectoris (8) CKD (chronic kidney disease) Qualifiers: Qualified Code(s): N18.9 - Chronic kidney disease, unspecified
[2018-05-17] MEDS: Aspirin Enteric Coated 81 MG Tablet PO SCH (09:30)
[2018-05-17] MEDS ORDERED: MethylPREDNISolone 40 MG/ML VIAL IVP SCH (09:30)
--- NOTE | 2018-05-17 10:18 | Electrocardiograph Report ---
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
[2018-05-17] MEDS: Azithromycin 250 MG in D5% in Water 250 ML IVPB SCH (10:50)
[2018-05-17] MEDS ORDERED: cefTRIAXone 1,000 MG in Water for inj. (sterile) 20 ML 10 ML IVP ONE (11:39)
[2018-05-17] MEDS: MethylPREDNISolone 40 MG/ML VIAL IVP SCH (17:01)
[2018-05-17] MEDS ORDERED: *HR* Warfarin 2 MG TABLET PO ONE (18:00)
[2018-05-18] MEDS: Ipratropium/Albuterol Neb 3 ML IH SCH ×6 (03:57→23:30)
[2018-05-18] MEDS: Melatonin 3 MG TABLET PO SCH ×2 (04:48→20:30)
[2018-05-18] MEDS: MethylPREDNISolone 40 MG/ML VIAL IVP SCH (05:02)
[2018-05-18 05:56] LABS: Basophils % 0.2 %; Hematocrit 32.8 % (35.3-44.9); Hemoglobin 10.4 g/dL (11.5-15.4); Immature Granulocytes % 0.4 % (0-4); Lymphocytes # 0.3 K/mcL (0.6-4.6); Lymphocytes % 5.3 %; Mean Corpuscular HGB Conc 31.7 g/dL (31.6-35.5); Mean Corpuscular Hemoglobin 27.1 pg (28.0-33.3); Mean Corpuscular Volume 85.4 fL (83.0-100.0); Monocytes # 0.1 K/mcL (0.0-1.3); Monocytes % 1.9 %; Neutrophils # 4.9 K/mcL (1.6-8.9); Platelet Count 196 K/mcL (140-400); Red Blood Count 3.84 M/mcL (3.82-4.97); Red Cell Distribution Width 17.5 % (11.5-14.5); Segmented Neutrophils % 92.2 %
[2018-05-18 06:08] LABS: INR 2.9; Prothrombin Time 32.3 Seconds (9.4-12.1)
[2018-05-18 06:20] LABS: Calcium 8.9 mg/dL (8.6-10.3); Potassium 4.6 mEq/L (3.5-5.1)
[2018-05-18] MEDS: Diltiazem CD (24hr) 180 MG CAPSULE PO SCH (08:17)
[2018-05-18] MEDS: Aspirin Enteric Coated 81 MG Tablet PO SCH (08:18)
--- NOTE | 2018-05-18 09:26 | Internal Med Progress Note ---
<Adria Patino - Last Filed: 05/18/18 09:22> Hospitalist Progress Note - Encounter Date of Encounter: 05/18/18 Time of Encounter: 08:00 - Subjective Interval History: Mrs. Mendoza is a 83F PMHx CAD, atrial fibrillation on chronic anticoagulation with coumadin, kidney cancer, breast cancer who presented on 05/16/18 with dry cough associated with SOB. CXR was significant for RML pneumonia. She received dose of Rocephin and azithromycin in the ED. Received another dose of Rocephin on day 2 of admission. Today, patient is doing a lot better. She slept very well. Denies any CP or SOB. Denies fevers, chills, nausea, or vomiting. Voiding without difficulty. Patient does not use oxygen at home. No voiding difficulties. - Exam Vitals: Temp Pulse Resp BP Pulse Ox 97.9 F 65 19 152/94 95 05/18/18 08:19 05/18/18 08:19 05/18/18 08:19 05/18/18 08:19 05/18/18 08:19 Exam: General appearance: Present: A&O X 3 Exam: below - Head Head exam: Present: atraumatic, normocephalic - Eye Eye exam: conjuntiva pink, sclera anicteric, EOMI - Neck Neck exam general surgery: Present: supple, trachea midline. Absent: lymphadenopathy - Respiratory Respiratory exam: Absent: CTAB, accessory muscle use, rales, rhonchi. Patient on 4L NC - Cardiovascular Cardiovascular exam: Present: RRR, +S1, +S2. Absent: diastolic murmur, gallop, rubs, systolic murmur - GI/Abdominal GI/Abdominal exam: Present: normal bowel sounds, soft, no peritoneal signs. Absent: distended, tenderness - Extremities Exam Extremities exam: Present: warm, radial pulses palpable and symmetrical. Absent: calf tenderness, cyanotic, pedal edema - Neurological Exam Neurological exam: Present: CN II-XII intact, oriented X3, no focal deficits. Absent: pronater drift, facial droop, speech deficit - Skin Skin exam: Present: dry, intact - Assessment and Plan (1) Pneumonia Current Visit: Yes Status: Acute Assessment and Plan: Improved. - Blood Cx pending - Continue with Azythromycin day#3. - CBC, CMP in AM - Tylenol 650 mg PO q 4-6 hr PRN pain or fever - Continue with solu-medrol 40mg IV BID for today. Will down-escalate to prednisone 40mg PO daily tomorrow - Patient on 4L NC. Will slowly wean off today. She is not on home O2 Pending dispo to go home tomorrow if symptoms continue to improve. (2) Paroxysmal atrial flutter Current Visit: No Status: Acute Assessment and plan: Stable. Increased to 180 PO cardizem daily this morning. No episodes of tachycardia yesterday night or this morning. The patient have history of paroxysmal atrial flutter as well as JODY thrombus that was noted on СВЕТЛАНА in 2017. Continue with Coreg 12.5mg PO BID. Continue anticoagulation with Coumadin. Continue cardiac monitoring and cardiac diet. (3) Hypertension Current Visit: No Status: Acute Assessment and plan: Stable chronic issue. We will continue home medication Qualifiers: Qualified Code(s): I10 - Essential (primary) hypertension (4) Hyperlipidemia Current Visit: No Status: Acute Qualifiers: Qualified Code(s): E78.5 - Hyperlipidemia, unspecified Continue home meds (5) Coronary artery disease Current Visit: No Status: Acute Qualifiers: Qualified Code(s): I25.10 - Atherosclerotic heart disease of [place] coronary artery without angina pectoris Continue home meds (6) CKD (chronic kidney disease) Current Visit: Yes Status: Acute Assessment and plan: Stable. The patient has a history of chronic kidney disease, creatinine is around baseline we will continue to monitor renal function, renal dosing of medication, avoid nephrotoxic meds Qualifiers: Qualified Code(s): N18.9 - Chronic kidney disease, unspecified (9) DVT prophylaxis Current Visit: No Status: Acute Assessment and plan: Patient is on chronic anticoagulation Coumadin - Time Spent with Patient Total time spent is greater than 50% in coordination of care (as documented) at patient's floor/unit and/or counseling patient: Greater than 35 minutes Plan of Care Discussed with: patient Internal Medicine: Result - Labs CBC & Chem 7: 05/18/18 05:29 05/18/18 05:29 Labs: Short CBC 05/18/18 Range/Units 05:29 WBC 5.3 (4.3-11.1) K/mcL Hgb 10.4 L (11.5-15.4) g/dL Hct 32.8 L (35.3-44.9) % Plt Count 196 (140-400) K/mcL Neutrophils # 4.9 (1.6-8.9) K/mcL BMP 05/18/18 05:29 Sodium 134 L Potassium 4.6 Chloride 107 Carbon Dioxide 18 L BUN 34 H Creatinine 2.33 H Glucose 161 H Calcium 8.9 - ABG Interpretation ABG results: PT/INR, D-dimer PT 32.3 Seconds (9.4-12.1) H 05/18/18 05:29 Consult Discharge Plan - Plan Referrals: Cesar Lozano DO [Primary Care Provider] - 05/20/18 10:30 am <Ben Kellogg - Last Filed: 05/18/18 14:25> Hospitalist Progress Note - Encounter Date of Encounter: 05/18/18 - Exam Vitals: Temp Pulse Resp BP Pulse Ox 97.9 F 65 20 152/94 97 05/18/18 08:19 05/18/18 08:19 05/18/18 10:58 05/18/18 08:19 05/18/18 10:58 - Assessment and Plan (1) Dehydration Current Visit: No Status: Acute (2) Paroxysmal atrial flutter Current Visit: No Status: Acute (3) Hypertension Current Visit: No Status: Acute (4) Hyperlipidemia Current Visit: No Status: Acute (5) Coronary artery disease Current Visit: No Status: Acute (6) DVT prophylaxis Current Visit: No Status: Acute (7) Pneumonia Current Visit: Yes Status: Acute (8) CKD (chronic kidney disease) Current Visit: Yes Status: Acute - Time Spent with Patient Total time spent is greater than 50% in coordination of care (as documented) at patient's floor/unit and/or counseling patient: Internal Medicine: Result - Labs CBC & Chem 7: 05/18/18 05:29 05/18/18 05:29 Labs: Short CBC 05/18/18 Range/Units 05:29 WBC 5.3 (4.3-11.1) K/mcL Hgb 10.4 L (11.5-15.4) g/dL Hct 32.8 L (35.3-44.9) % Plt Count 196 (140-400) K/mcL Neutrophils # 4.9 (1.6-8.9) K/mcL BMP 05/18/18 05:29 Sodium 134 L Potassium 4.6 Chloride 107 Carbon Dioxide 18 L BUN 34 H Creatinine 2.33 H Glucose 161 H Calcium 8.9 - ABG Interpretation ABG results: PT/INR, D-dimer PT 32.3 Seconds (9.4-12.1) H 05/18/18 05:29 - Attending Attestation I examined this patient and my medical decision-making was reviewed with the Resident Physician Dr. Patino. I agree with the documented findings, disposition and treatment plan as described except to the extent set forth below. Ms. Mendoza 83 y/o F with known past medical history of CAD, paroxysmal atrial fibrillation on Coumadin for anticoagulation patient presented to ER with cough with expectoration and progressive worsening shortness of breath. Her chest x- ray showed right middle lobe pneumonia. Pt stated she is feeling better today. Still on 3 lit o2 through NC. She denied an active chest pain. Still having cough and moderate shortness of breath, dyspnea on exertion. Gen: A, A, O x3 Chest: Diminished BS b/l, moderate wheezing, no crackles, ronchi++ Heart S1S2+ Tachycardia, No murmurs a/p 1. Acute RML PNA - mostly bacterial 2. Acute COPD exacerbation 3. Acute hypoxic resp failure on empirical abx Azithromycin + Added Rocephin switched to PO steroid cont duoneb try to wean her off the O2 as she tolerates may need home O2 eval 3. Paroxysmal A fib Rate fairly controlled due to resp failure Inc Cardizem to 180mg on Coumadin for anti coag <Adria Patino - Last Filed: 05/18/18 09:22> (1) Pneumonia Qualifiers: Pneumonia type: due to unspecified organism Laterality: right Lung location: middle lobe of lung Qualified Code(s): J18.1 - Lobar pneumonia, unspecified organism <Ben Kellogg - Last Filed: 05/18/18 14:25> (3) Hypertension Qualifiers: Qualified Code(s): I10 - Essential (primary) hypertension (4) Hyperlipidemia Qualifiers: Qualified Code(s): E78.5 - Hyperlipidemia, unspecified (5) Coronary artery disease Qualifiers: Qualified Code(s): I25.10 - Atherosclerotic heart disease of [place] coronary artery without angina pectoris (8) CKD (chronic kidney disease) Qualifiers: Qualified Code(s): N18.9 - Chronic kidney disease, unspecified
[2018-05-18] MEDS: predniSONE 20 MG TABLET PO SCH (11:31)
[2018-05-18] MEDS: Azithromycin 250 MG in D5% in Water 250 ML IVPB SCH (11:32)
[2018-05-18] MEDS ORDERED: *HR* Warfarin 2 MG TABLET PO ONE (18:00)
[2018-05-19] MEDS: Ipratropium/Albuterol Neb 3 ML IH SCH ×6 (03:32→23:36)
[2018-05-19 05:25] LABS: INR 3.6; Prothrombin Time 40.6 Seconds (9.4-12.1)
[2018-05-19] MEDS: predniSONE 20 MG TABLET PO SCH (08:06)
[2018-05-19] MEDS: Diltiazem CD (24hr) 180 MG CAPSULE PO SCH (08:06)
[2018-05-19] MEDS: Aspirin Enteric Coated 81 MG Tablet PO SCH (08:06)
[2018-05-19] MEDS ORDERED: Furosemide 20 MG/2 ML VIAL IVP ONE (10:24)
[2018-05-19] MEDS: Azithromycin 250 MG in D5% in Water 250 ML IVPB SCH (11:28)
--- NOTE | 2018-05-19 15:00 | Internal Med Progress Note ---
Hospitalist Progress Note - Encounter Date of Encounter: 05/19/18 Time of Encounter: 09:00 - Subjective Interval History: Ms. Mendoza 83 y/o F with known past medical history of CAD, paroxysmal atrial fibrillation on Coumadin for anticoagulation patient presented to ER with cough with expectoration and progressive worsening shortness of breath. Her chest x- ray showed right middle lobe pneumonia. Still on 3 lit o2 through NC. She denied an active chest pain. Still having cough and moderate shortness of breath, dyspnea on exertion. Pt states overall she feels little better today. - Exam Vitals: Temp Pulse Resp BP Pulse Ox 97.7 F 114 16 157/99 92 05/19/18 10:31 05/19/18 10:31 05/19/18 11:48 05/19/18 10:31 05/19/18 11:48 Exam: Gen: Alert, awake, Oriented to time,place and person Chest: Diminished breath sounds B/L, Moderate wheezing, No crackles, No rales Heart: S1S2+ Afib No murmurs Abd: Soft, NT, BS +, No organomegaly Ext: No edema, pulses are palpable, No calf tenderness Neuro : Benign findings Skin: No rash. - Assessment and Plan (1) Pneumonia Current Visit: Yes Status: Acute Assessment and Plan: RML PNA mostly bacterial cont empirical abx Rocephin and Azithromycin (2) Acute respiratory failure with hypoxia Current Visit: Yes Status: Acute Assessment and Plan: Due to PNA still requiring 3 lit O2 will give her Lasix 20mg IV x 1 dose Ordered CXR Reviewed 2 D Echo from 04/27 showed Preserved LVEF, indeterminate diastolic function (3) COPD with acute exacerbation Current Visit: Yes Status: Acute Assessment and Plan: Mostly triggered by pneumonia continue systemic steroids continue frequent bronchodilator therapy continue oxygen (4) Hypertension Current Visit: No Status: Acute Assessment and Plan: Fairly controlled with current home medications mostly due to respiratory distress continue close monitoring will give IV hydralazine as needed (5) Hyperlipidemia Current Visit: No Status: Acute Assessment and Plan: on statin (6) Coronary artery disease Current Visit: No Status: Acute Assessment and Plan: cont home medications ASA, BB and statin (7) DVT prophylaxis Current Visit: No Status: Acute Assessment and Plan: Patient is on chronic anticoagulations Coumadin (8) CKD (chronic kidney disease) Current Visit: Yes Status: Acute (9) Paroxysmal atrial fibrillation Current Visit: No Status: Acute - Time Spent with Patient Total time spent is greater than 50% in coordination of care (as documented) at patient's floor/unit and/or counseling patient: Internal Medicine: Result - Labs CBC & Chem 7: 05/18/18 05:29 05/18/18 05:29 - ABG Interpretation ABG results: PT/INR, D-dimer PT 40.6 Seconds (9.4-12.1) H 05/19/18 04:52 Consult Discharge Plan - Plan Referrals: Cesar Lozano DO [Primary Care Provider] - 05/20/18 10:30 am (4) Hypertension Qualifiers: Qualified Code(s): I10 - Essential (primary) hypertension (5) Hyperlipidemia Qualifiers: Hyperlipidemia type: unspecified Qualified Code(s): E78.5 - Hyperlipidemia, unspecified (6) Coronary artery disease Qualifiers: Qualified Code(s): I25.10 - Atherosclerotic heart disease of [place] coronary artery without angina pectoris (8) CKD (chronic kidney disease) Qualifiers: Qualified Code(s): N18.9 - Chronic kidney disease, unspecified
[2018-05-19] MEDS: Melatonin 3 MG TABLET PO SCH (21:19)
[2018-05-20] MEDS: Ipratropium/Albuterol Neb 3 ML IH SCH ×3 (03:49→10:57)
[2018-05-20 06:19] LABS: Prothrombin Time 45.3 Seconds (9.4-12.1)
[2018-05-20 08:01] VITALS: BP 132/81
[2018-05-20] MEDS: predniSONE 20 MG TABLET PO SCH (09:01)
[2018-05-20] MEDS: Aspirin Enteric Coated 81 MG Tablet PO SCH (09:01)
[2018-05-20] MEDS: Diltiazem CD (24hr) 180 MG CAPSULE PO SCH (09:01)
[2018-05-20] MEDS: Azithromycin 250 MG in D5% in Water 250 ML IVPB SCH (09:10)
--- NOTE | 2018-05-20 09:58 | Internal Med Progress Note ---
Hospitalist Progress Note - Encounter Date of Encounter: 05/20/18 Time of Encounter: 08:00 - Subjective Interval History: Ms. Mendoza 83 y/o F with known past medical history of CAD, paroxysmal atrial fibrillation on Coumadin for anticoagulation patient presented to ER with cough with expectoration and progressive worsening shortness of breath. Her chest x- ray showed right middle lobe pneumonia. Patient is now on 2L NC. She reports that she is slightly better today, but continues to experience SOB, especially after decreasing O2 from 3L to 2L. She d enied an active chest pain. Still having cough but reports Robitussin and lasix have helped. Tolerating PO without difficulty. Voiding without difficulty. No acute overnight events or acute concerns. - Exam Vitals: Temp Pulse Resp BP Pulse Ox 97.5 F L 89 16 132/81 96 05/20/18 07:57 05/20/18 07:57 05/20/18 07:57 05/20/18 07:57 05/20/18 07:57 Exam: Gen: Alert, awake, Oriented to time,place and person Chest: Diminished breath sounds B/L, Moderate wheezing bilaterally, No crackles, No rales Heart: RRR, normal S1/S2, no murmurs. Abd: Soft, NT, BS +, No organomegaly Ext: No edema, pulses are palpable, No calf tenderness Neuro : Benign findings Skin: No rash. - Assessment and Plan (1) Pneumonia Current Visit: Yes Status: Acute - Time Spent with Patient Total time spent is greater than 50% in coordination of care (as documented) at patient's floor/unit and/or counseling patient: Internal Medicine: Result - Labs CBC & Chem 7: 05/18/18 05:29 05/18/18 05:29 - ABG Interpretation ABG results: PT/INR, D-dimer PT 45.3 Seconds (9.4-12.1) H* 05/20/18 05:38 - Impressions Impressions Chest X-Ray 05/19/18 10:24 IMPRESSION: 1. Subsegmental atelectasis versus focal pneumonitis lateral mid to lower lungs bilateral, decreased on the right compared with prior study. 2. Calcific atherosclerosis aorta. 3. Cardiomegaly. D/ / Derrick Cha / Derrick Cha Interpreting Provider: Derrick Cha Consult Discharge Plan - Plan Referrals: Cesar Lozano DO [Primary Care Provider] - 06/01/18 9:30 am (1) Pneumonia Qualifiers: Pneumonia type: due to unspecified organism Laterality: right Lung location: middle lobe of lung Qualified Code(s): J18.1 - Lobar pneumonia, unspecified organism
[2018-05-20] MEDS ORDERED: Ipratropium/Albuterol Neb 3 ML IH PRN (11:53)
--- NOTE | 2018-05-20 12:06 | Discharge Summary ---
<Adria Patino - Last Filed: 05/20/18 13:03> - NOTES TO OUTPATIENT PROVIDER Notes to Outpatient Provider: Supratherapeutic INR = 4.0. Patient to hold Coumadin for 2 days and recheck in tomorrow at PCP. Patient on Azithromycin 250mg PO day #3/5, prednisone 40mg PO daily #3/5. Cardizem now 180mg PO daily. Blood culture pending Orders not resulted at time of discharge: Pending orders 05/16/18 10:59 Culture,Blood [BC] Stat 05/21/18 04:00 INR/PT [Prothrombin Time INR] [COAG] AM 0400 Date of Encounter: 05/20/18 Time of Encounter: 08:30 - Discharge Diagnosis (1) Bacterial pneumonia Priority: Primary Status: Acute (2) Paroxysmal atrial fibrillation Priority: Secondary Status: Acute (3) Hypertension Priority: Secondary Status: Acute Qualifiers: Qualified Code(s): I10 - Essential (primary) hypertension (4) Hyperlipidemia Priority: Secondary Status: Acute Qualifiers: Hyperlipidemia type: unspecified Qualified Code(s): E78.5 - Hyperlipidemia, unspecified (5) Coronary artery disease Priority: Secondary Status: Acute Qualifiers: Qualified Code(s): I25.10 - Atherosclerotic heart disease of [place] coronary artery without angina pectoris (6) CKD (chronic kidney disease) Priority: Secondary Status: Acute Qualifiers: Qualified Code(s): N18.9 - Chronic kidney disease, unspecified (7) Acute respiratory failure with hypoxia Priority: Primary Status: Acute (8) COPD with acute exacerbation Priority: Primary Status: Acute Hospital course: Mrs. Mendoza is a 83F PMHx CAD, atrial fibrillation on chronic anticoagulation with coumadin, kidney cancer, breast cancer who presented on 05/16/18 with dry cough associated with SOB. CXR was significant for RML pneumonia. She received dose of Rocephin and azithromycin in the ED. Received another dose of Rocephin on day 2 of admission. Patient was admitted for RML pneumonia, acute COPD exacerbation, and acute respiratory failure with hypoxia. Patient required 4L NC on admission and has been gradually weaned down to 2L. Her vital signs are back to baseline. She is to continue her Azythromycin day 3/4 and prednisone tapering as instructed. Follow up with PCP on next Thursday. For her history of paroxismal A. Fib: patient had several episodes of unstable tachycardia on 05/19/18. This resolved with additional dose of 30mg PO cardizem. She is to increase her dose of cardizem to 180 PO daily. Today, her INR is subtherapeutic = 4.0. She is instructed to hold coumadin for 2 days and recheck her PT/INR at her PCP office tomorrow. Continue with all other home medications and follow up with PCP. Will refer to home health PT/OT. Patient is agreeable. Discharge discussed with: patient - Time Spent with Patient Total time spent providing and/or coordinating discharge services: Time spent: Less than 30 minutes, D/C greater than 8 hours after Admission - Discharge Medications Prescriptions: New Azithromycin 250 mg PO DAILY #2 tablet Diltiazem CD (24hr) [Cardizem CD] 180 mg PO DAILY #30 cap.er.24h predniSONE [PredniSONE] 10 mg PO DAILY #18 tablet predniSONE [PredniSONE] 10 mg PO DAILY 8 Days #20 tablet Continue Warfarin [Coumadin] 2.5 mg PO DAILY Carvedilol [Coreg] 12.5 mg PO BID Aspirin Enteric Coated [Aspirin EC] 81 mg PO DAILY Atorvastatin [Lipitor] 40 mg PO HS #30 tab Cyclobenzaprine [Flexeril] 5 mg PO PRN Diltiazem CD (24hr) [Cardizem CD] 120 mg PO DAILY Cholecalciferol (D-3) [Vitamin D] 2,000 unit PO DAILY Home Medications: Aspirin Enteric Coated [Aspirin EC] 81 mg PO DAILY 09/30/16 [History] Carvedilol [Coreg] 12.5 mg PO BID 09/30/16 [History] Warfarin [Coumadin] 2.5 mg PO DAILY 09/30/16 [History] Atorvastatin [Lipitor] 40 mg PO HS #30 tab 10/05/16 [Rx] Cyclobenzaprine [Flexeril] 5 mg PO PRN 05/16/18 [History] Diltiazem CD (24hr) [Cardizem CD] 120 mg PO DAILY 05/16/18 [History] Cholecalciferol (D-3) [Vitamin D] 2,000 unit PO DAILY 05/17/18 [History] Azithromycin 250 mg PO DAILY #2 tablet 05/20/18 [Rx] Diltiazem CD (24hr) [Cardizem CD] 180 mg PO DAILY #30 cap.er.24h 05/20/18 [Rx] predniSONE [PredniSONE] 10 mg PO DAILY #18 tablet 05/20/18 [Rx] predniSONE [PredniSONE] 10 mg PO DAILY 8 Days #20 tablet 05/20/18 [Rx] Allergies/Adverse Reactions: Allergy/AdvReac Type Severity Reaction Status Date / Time sulfamethoxazole Allergy Hives Verified 05/16/18 11:09 [From Bactrim] trimethoprim [From Bactrim] Allergy Hives Verified 05/16/18 11:09 lidocaine AdvReac Mild Palpitation Verified 10/03/16 22:16 s Date of admission: 05/18/18 11:11 Primary care physician: Cesar Lozano Consults: 05/17/18 07:47 Consult to Nurse Navigator [CONS] Routine Comment: PNEUMONIA 05/19/18 13:26 Consult to Physical Therapy [CONS] Routine Comment: Evaluate, develop and implement POC Reason for Consult: Family requested this patient have therapy for any deconditioning Does patient have active BEDREST order?: No Is patient medically & hemodynamically stable?: Yes Patient assessed for mobility or mobilized this visit?: Yes 05/19/18 13:27 Consult to Occupational Therapy [CONS] Routine Comment: Evaluate, develop and implement POC Reason for Consult: Family requested this patient have therapy for any deconditioning Does patient have active BEDREST order?: No Is patient medically & hemodynamically stable?: Yes Patient assessed for mobility or mobilized this visit?: Yes Discharging clinician: Adria Patino Anticipated date of discharge: 05/20/18 - Constitutional Vitals: Temp Pulse Resp BP Pulse Ox 97.5 F L 89 18 132/81 92 05/20/18 07:57 05/20/18 07:57 05/20/18 10:58 05/20/18 07:57 05/20/18 11:19 General appearance: Present: A&O X 3 Exam: As below - Head Head exam: Present: atraumatic, normocephalic - Eye Eye exam: Present: PERRL, conjuntiva pink, sclera anicteric Pupils: Present: PERRL - Neck Neck exam general surgery: Present: supple, trachea midline. Absent: lymphadenopathy - Respiratory Respiratory exam: Absent: accessory muscle use, rales, rhonchi, wheezes Additional comments: Bilateral wheezing without crackles or rales. - Cardiovascular Cardiovascular exam: Present: RRR, +S1, +S2. Absent: diastolic murmur, gallop, rubs, systolic murmur - GI/Abdominal GI/Abdominal exam: Present: normal bowel sounds, soft, no peritoneal signs. Absent: distended, tenderness - Extremities Exam Extremities exam: Present: warm, radial pulses palpable and symmetrical. Absent: calf tenderness, cyanotic, pedal edema - Neurological Exam Neurological exam: Present: CN II-XII intact, oriented X3, no focal deficits. Absent: pronater drift, facial droop, speech deficit - Skin Skin exam: Present: dry, intact - Patient Status Disposition: Home Health Service Condition: Fair Functional capacity at discharge: uses cane/walker Overall status at discharge: patient is progressing back to baseline - Discharge Instructions Instructions: Viral Pneumonia (DC), Chronic Kidney Disease (DC) Follow Up With: Cesar Lozano DO [Primary Care Provider] - 06/01/18 9:30 am Additional Instructions: Follow-up appointments: If there is not an appointment listed below, please call your physician and schedule a follow-up appointment. If you have congestive heart failure and your symptoms return, make an appointment with your physician. Medication List: Carry an up to date list of medications you are taking at all time. We have given you an updated medication list including any new medications that you have been prescribed. Please provide that list to your primary provider Symptoms: If your condition changes or you experience any of the following symptoms, notify your physician immediately: Unusual or worsening pain, fever, persistent nausea and vomiting, bleeding, increase in swelling (especially in your legs), sudden weight gain, extreme dizziness, chest pain, increased drainage or redness from a wound or incision. Go to the emergency department if you experience a problem with breathing. Weights: If you have a history of swelling or shortness of breath, weigh yourself daily and notify your physician if you have a weight gain of two or more pounds in one day or 5 or more pounds in a week. If you experience any of the warning signs for stroke: Sudden numbness or weakness of the face, arm or leg; especially on one side of the body, sudden confusion, trouble speaking or understanding, sudden trouble seeing in one or both eyes, sudden trouble walking, dizziness, loss of balance or coordination, sudden sever headache with no cause; Call 911 or go to the emergency room. Stroke is a medical emergency. Some risk factors for stroke: Age, cigarette smoking, diabetes, excessive alcohol consumption, family history, high blood pressure, overweight, physical inactivity, prior stroke, heart attack, diagnosis of carotid artery stenosis or other artery disease. If you smoke, STOP: Smoking or tobacco use significantly increases your risk of heart and lung disease. Your chance of disease greatly increases if you continue to smoke. For more information, call the [employer] quit line for smoking cessation 0-371-YWUL-NOW ( ) - Diet and Activity Diet: advance to your usual diet <Ben Kellogg - Last Filed: 05/20/18 15:17> Orders not resulted at time of discharge: Pending orders 05/16/18 10:59 Culture,Blood [BC] Stat 05/21/18 04:00 INR/PT [Prothrombin Time INR] [COAG] AM 0400 Date of Encounter: 05/20/18 - Discharge Diagnosis (1) Pneumonia Status: Acute (2) Acute respiratory failure with hypoxia Status: Acute (3) COPD with acute exacerbation Status: Acute (4) Hypertension Status: Acute Qualifiers: Qualified Code(s): I10 - Essential (primary) hypertension (5) Hyperlipidemia Status: Acute Qualifiers: Hyperlipidemia type: unspecified Qualified Code(s): E78.5 - Hyperlipidemia, unspecified (6) Coronary artery disease Status: Acute Qualifiers: Qualified Code(s): I25.10 - Atherosclerotic heart disease of [place] coronary artery without angina pectoris (7) DVT prophylaxis Status: Acute (8) CKD (chronic kidney disease) Status: Acute Qualifiers: Qualified Code(s): N18.9 - Chronic kidney disease, unspecified (9) Paroxysmal atrial fibrillation Status: Acute Hospital course: Ms. Mendoza is a 83 year old female - Time Spent with Patient Total time spent providing and/or coordinating discharge services: Date of admission: 05/18/18 11:11 Primary care physician: Cesar Lozano Consults: 05/17/18 07:47 Consult to Nurse Navigator [CONS] Routine Comment: PNEUMONIA 05/19/18 13:26 Consult to Physical Therapy [CONS] Routine Comment: Evaluate, develop and implement POC Reason for Consult: Family requested this patient have therapy for any deconditioning Does patient have active BEDREST order?: No Is patient medically & hemodynamically stable?: Yes Patient assessed for mobility or mobilized this visit?: Yes 05/19/18 13:27 Consult to Occupational Therapy [CONS] Routine Comment: Evaluate, develop and implement POC Reason for Consult: Family requested this patient have therapy for any deconditioning Does patient have active BEDREST order?: No Is patient medically & hemodynamically stable?: Yes Patient assessed for mobility or mobilized this visit?: Yes - Constitutional Vitals: Temp Pulse Resp BP Pulse Ox 97.5 F L 89 18 132/81 92 05/20/18 07:57 05/20/18 07:57 05/20/18 10:58 05/20/18 07:57 05/20/18 11:19 - Attending Attestation I examined this patient and my medical decision-making was reviewed with the Resident Physician Dr. Patino. I agree with the documented findings, disposition and treatment plan as described except to the extent set forth below. Ms. Mendoza 83 y/o F with known past medical history of CAD, paroxysmal atrial fibrillation on Coumadin for anticoagulation patient presented to ER with cough with expectoration and progressive worsening shortness of breath. Her chest x- ray showed right middle lobe pneumonia. Pt stated she is feeling better today. Still on 3 lit o2 through NC. She denied an active chest pain. Over all feels better. She would like to go home today. Gen: A, A, O x3 Chest: Diminished BS b/l, mild wheezing, no crackles, ronchi++ Heart S1S2+ Afib, No murmurs a/p 1. Acute RML PNA - mostly bacterial 2. Acute COPD exacerbation 3. Acute hypoxic resp failure on empirical abx Azithromycin placeed her on tapering PO steroid cont duoneb her pneumonia improved now however she is still needed 3 lit O2, which might be due to her COPD exacerbation CM working on arranging continuous O2 at 3 lit 3. Paroxysmal A fib Rate controlled with Cardizem to 180mg and Coreg on Coumadin for anti coag INR supra therapeutic Recommend to held coumadin for today and tomorrow
--- NOTE | 2018-05-20 12:10 | Physician Discharge Referral ---
Home Health/Hosp Referral Info Transfer to: Home Health Provider in Charge Post Discharge: PCP - Diagnosis (1) Pneumonia Priority: Primary Status: Acute (2) Acute respiratory failure with hypoxia Priority: Primary Status: Acute (3) CKD (chronic kidney disease) Priority: Secondary Status: Acute (4) COPD with acute exacerbation Priority: Primary Status: Acute (5) Coronary artery disease Priority: Secondary Status: Acute (6) Hyperlipidemia Priority: Secondary Status: Acute (7) Hypertension Priority: Secondary Status: Acute (8) Paroxysmal atrial fibrillation Priority: Secondary Status: Acute - Respiratory Orders Smoking Cessation: Smoking cessation has been advised. For more information, call the [place] [employer] Quit Line at 3-929-FKAS-NOW. - Transfer Medications Home Medications: Aspirin Enteric Coated [Aspirin EC] 81 mg PO DAILY 09/30/16 [History] Carvedilol [Coreg] 12.5 mg PO BID 09/30/16 [History] Warfarin [Coumadin] 2.5 mg PO DAILY 09/30/16 [History] Atorvastatin [Lipitor] 40 mg PO HS #30 tab 10/05/16 [Rx] Cyclobenzaprine [Flexeril] 5 mg PO PRN 05/16/18 [History] Diltiazem CD (24hr) [Cardizem CD] 120 mg PO DAILY 05/16/18 [History] Cholecalciferol (D-3) [Vitamin D] 2,000 unit PO DAILY 05/17/18 [History] Allergies/Adverse Reactions: Allergy/AdvReac Type Severity Reaction Status Date / Time sulfamethoxazole Allergy Hives Verified 05/16/18 11:09 [From Bactrim] trimethoprim [From Bactrim] Allergy Hives Verified 05/16/18 11:09 lidocaine AdvReac Mild Palpitation Verified 10/03/16 22:16 s Certification: Further, I certify that my clinical findings support that this patient is homebound (i.e. absences from home require considerable and taxing effort and are for medical reasons or [employer] [facility] or infrequently or short duration when for other reasons) because: Homebound Reason: Patient requires assistance of a person or device to safely leave home, Absences from home are contraindicated except to recieve medical care, Leaving home requires considerable and taxing effort due to condition Attestation: My signature below is to certify that this patient is under my care and that I, or nurse practitioner, or a physician's retail assistant manager working with me, has a [id number] encounter with this patient.
[2018-05-21] MEDS ORDERED: Azithromycin 250 MG TABLET PO SCH (09:00)
== END 2018-05-20 17:22 | disposition home health service (06) | DRG 189 ==
LOC: EMEROOARM 09:44 → 3BNU 09:44 → SUATTDRO 12:14 → 3BNU 13:17
PROVIDERS: ADMIT Internal Medicine Nephrology; ATTEND Family Medicine

== ENCOUNTER 2019-02-06 02:25 | Inpatient (IN) ==
[2019-02-06] MEDS ORDERED: Ipratropium/Albuterol Neb 3 ML IH ONE (02:51)
[2019-02-06 03:16] LABS: Basophils # 0.1 K/mcL (0.0-0.2); Basophils % 0.6 %; Eosinophils # 0.5 K/mcL (0.0-0.6); Eosinophils % 5.8 %; Hematocrit 34.6 % (35.3-44.9); Hemoglobin 11.5 g/dL (11.5-15.4); Immature Granulocytes % 0.3 % (0-4); Lymphocytes # 0.3 K/mcL (0.6-4.6); Lymphocytes % 3.7 %; Mean Corpuscular HGB Conc 33.2 g/dL (31.6-35.5); Mean Corpuscular Hemoglobin 29.3 pg (28.0-33.3); Mean Platelet Volume 10.5 fL (9.4-12.4); Monocytes # 0.6 K/mcL (0.0-1.3); Monocytes % 7.8 %; Neutrophils # 6.4 K/mcL (1.6-8.9); Platelet Count 150 K/mcL (140-400); Red Blood Count 3.93 M/mcL (3.82-4.97); Red Cell Distribution Width 16.8 % (11.5-14.5); Segmented Neutrophils % 81.8 %; White Blood Count 7.8 K/mcL (4.3-11.1)
[2019-02-06 03:30] LABS: Potassium 4.4 mEq/L (3.5-5.1)
[2019-02-06 03:31] LABS: Troponin I 0.03 ng/mL (< 0.04)
[2019-02-06] MEDS ORDERED: Furosemide 20 MG/2 ML VIAL IVP STA (03:56)
[2019-02-06] MEDS ORDERED: carvediloL 25 MG TABLET PO STA (06:53)
[2019-02-06] MEDS ORDERED: Naloxone 0.4 MG/ML INJ IVP PRN (08:22)
[2019-02-06] MEDS ORDERED: Ipratropium/Albuterol Neb 3 ML IH PRN (08:25)
[2019-02-06] MEDS ORDERED: Albumin 25% 25gram/100mL 25 GM/100 ML IV.SOLN IVPB ONE (08:30)
[2019-02-06] MEDS ORDERED: CARVEDILOL 25 MG PO SCH (09:00)
[2019-02-06 09:18] LABS: INR 2.2; Prothrombin Time 25.4 Seconds (9.4-12.1)
[2019-02-06] MEDS: Benzonatate 100 MG CAPSULE PO PRN ×2 (10:23→20:52)
[2019-02-06] MEDS: Cholecalciferol (D-3) 1,000 UNIT (25MCG) TABLET PO SCH (10:23)
[2019-02-06] MEDS: carvediloL 25 MG TABLET PO SCH ×2 (10:25→17:10)
[2019-02-06] MEDS: Sucralfate 1 GM TABLET PO SCH ×3 (10:25→20:51)
[2019-02-06] MEDS: Aspirin Enteric Coated 81 MG Tablet PO SCH (10:25)
[2019-02-06] MEDS: Menthol 9.1 MG LOZENGE PO PRN (17:54)
[2019-02-06] MEDS ORDERED: *HR* Warfarin 2.5 MG TABLET PO ONE (18:00)
[2019-02-06] MEDS ORDERED: Warfarin perPT PO PRN (18:00)
[2019-02-06] MEDS: Diltiazem CD (24hr) 180 MG CAPSULE PO SCH (20:51)
[2019-02-06 22:05] LABS: Bilirubin,Urine Negative (Negative); Blood,Urine Trace (Negative); Clarity,Urine Cloudy (Clear); Color,Urine Yellow (Yellow); Glucose,Urine (UA) Normal (Normal); Ketones,Urine Negative (Negative); Leukocyte Esterase,Urine Large (Negative); Nitrite,Urine Negative (Negative); Protein,Urine >=300 mg/dL (Neg-Trace); Specific Gravity,Urine 1.016 (1.010-1.025); Urobilinogen,Urine Normal (Normal)
[2019-02-06 22:09] LABS: Bacteria,Urine None Seen per hpf (None-Few); Hyaline Casts,Urine None Seen per lpf (None-Few); Squamous Epithelial Cell,Urine Many per lpf (None-Few); WBC,Urine TNTC per hpf (0-3)
[2019-02-06 23:16] LABS: RBC,Urine 0-3 per hpf (0-3)
[2019-02-07] MEDS: Sucralfate 1 GM TABLET PO SCH ×4 (05:39→20:13)
[2019-02-07] MEDS: Benzonatate 100 MG CAPSULE PO PRN ×2 (05:44→17:06)
[2019-02-07 06:37] LABS: INR 2.3; Prothrombin Time 25.7 Seconds (9.4-12.1)
[2019-02-07 06:52] LABS: Calcium 9.9 mg/dL (8.6-10.3); Potassium 4.1 mEq/L (3.5-5.1)
[2019-02-07 07:42] LABS: Adenovirus Not Detected (Not Detect); Bordetella Pertussis Not Detected (Not Detect); Chlamydophila pneumoniae Not Detected (Not Detect); Coronavirus 229E Not Detected (Not Detect); Coronavirus HKU1 Not Detected (Not Detect); Coronavirus NL63 Not Detected (Not Detect); Coronavirus OC43 Not Detected (Not Detect); Human Metapneumovirus Not Detected (Not Detect); Human Rhinovirus/Enterovirus Not Detected (Not Detect); Influenza A Subtype 2009 H1 Not Detected (Not Detect); Influenza B Not Detected (Not Detect); Mycoplasma pneumoniae Not Detected (Not Detect); Parainfluenza Virus 1 Not Detected (Not Detect); Parainfluenza Virus 2 Not Detected (Not Detect); Parainfluenza Virus 3 Not Detected (Not Detect); Parainfluenza Virus 4 Not Detected (Not Detect); Respiratory Syncytial Virus Not Detected (Not Detect)
[2019-02-07] MEDS: Aspirin Enteric Coated 81 MG Tablet PO SCH (08:52)
[2019-02-07] MEDS: carvediloL 25 MG TABLET PO SCH ×2 (08:52→16:59)
[2019-02-07] MEDS: Cholecalciferol (D-3) 1,000 UNIT (25MCG) TABLET PO SCH (08:52)
[2019-02-07] MEDS: predniSONE 20 MG TABLET PO SCH (16:59)
[2019-02-07] MEDS ORDERED: *HR* Warfarin 2.5 MG TABLET PO ONE (18:00)
[2019-02-07] MEDS: Diltiazem CD (24hr) 180 MG CAPSULE PO SCH (20:13)
[2019-02-08] MEDS: Benzonatate 100 MG CAPSULE PO PRN (04:44)
[2019-02-08 05:56] LABS: INR 2.4; Prothrombin Time 27.4 Seconds (9.4-12.1)
[2019-02-08 06:15] LABS: Calcium 10.2 mg/dL (8.6-10.3); Potassium 3.9 mEq/L (3.5-5.1)
[2019-02-08] MEDS ORDERED: Acetylcysteine 10% 2 ML INHSOL IH SCH (09:15)
[2019-02-08] MEDS: Ipratropium/Albuterol Neb 3 ML IH SCH ×4 (10:17→21:47)
[2019-02-08] MEDS ORDERED: Albuterol 2.5 MG/3 ML NEBULIZER IH PRN (10:23)
[2019-02-08] MEDS: carvediloL 25 MG TABLET PO SCH ×2 (10:38→18:20)
[2019-02-08] MEDS: Cholecalciferol (D-3) 1,000 UNIT (25MCG) TABLET PO SCH (10:38)
[2019-02-08] MEDS: Aspirin Enteric Coated 81 MG Tablet PO SCH (10:38)
[2019-02-08] MEDS: predniSONE 20 MG TABLET PO SCH ×2 (10:38→20:03)
[2019-02-08] MEDS: Sucralfate 1 GM TABLET PO SCH ×4 (10:42→20:26)
[2019-02-08] MEDS: GuaiFENesin/Codeine Oral Soln 5 ML UDC PO PRN (13:49)
[2019-02-08] MEDS: Acetylcysteine 10% 2 ML INHSOL IH SCH ×2 (15:33→21:47)
[2019-02-08 16:17] LABS: Complement C3 133 mg/dL (87-200)
[2019-02-08] MEDS ORDERED: *HR* Warfarin 2.5 MG TABLET PO ONE (18:00)
[2019-02-08] MEDS: Diltiazem CD (24hr) 180 MG CAPSULE PO SCH (20:27)
[2019-02-08 21:38] LABS: Bilirubin,Urine Negative (Negative); Blood,Urine Negative (Negative); Clarity,Urine Cloudy (Clear); Color,Urine Yellow (Yellow); Glucose,Urine (UA) Normal (Normal); Ketones,Urine Negative (Negative); Leukocyte Esterase,Urine Small (Negative); Nitrite,Urine Negative (Negative); Protein,Urine 100 mg/dL (Neg-Trace); Specific Gravity,Urine 1.022 (1.010-1.025); Urobilinogen,Urine Normal (Normal)
[2019-02-08 21:40] LABS: Hyaline Casts,Urine None Seen per lpf (None-Few); RBC,Urine 0-3 per hpf (0-3); Squamous Epithelial Cell,Urine Many per lpf (None-Few); WBC,Urine 15-30 per hpf (0-3)
[2019-02-08 22:01] LABS: Protein/Creatinine Ratio,Urine 2.5 mg/mg (0.00-0.20)
[2019-02-08 22:06] LABS: Bacteria,Urine Few per hpf (None-Few); Yeast,Urine Moderate per hpf (None Seen)
[2019-02-09] MEDS: Ipratropium/Albuterol Neb 3 ML IH SCH ×4 (03:51→21:47)
[2019-02-09] MEDS: GuaiFENesin/Codeine Oral Soln 5 ML UDC PO PRN (08:57)
[2019-02-09] MEDS: carvediloL 25 MG TABLET PO SCH ×2 (08:57→17:48)
[2019-02-09] MEDS: Sucralfate 1 GM TABLET PO SCH ×4 (08:57→21:00)
[2019-02-09] MEDS: Aspirin Enteric Coated 81 MG Tablet PO SCH (08:57)
[2019-02-09] MEDS: predniSONE 20 MG TABLET PO SCH (08:57)
[2019-02-09] MEDS: Cholecalciferol (D-3) 1,000 UNIT (25MCG) TABLET PO SCH (08:57)
[2019-02-09] MEDS: Acetylcysteine 10% 2 ML INHSOL IH SCH ×3 (09:59→21:47)
[2019-02-09] MEDS ORDERED: Benzonatate 100 MG CAPSULE PO SCH (11:21)
[2019-02-09] MEDS: Benzonatate 100 MG CAPSULE PO SCH ×3 (12:30→21:01)
[2019-02-09 14:47] LABS: Basophils % 0.1 %; Eosinophils % 0.1 %; Hematocrit 31.5 % (35.3-44.9); Hemoglobin 10.1 g/dL (11.5-15.4); Immature Granulocytes % 0.3 % (0-4); Lymphocytes # 0.2 K/mcL (0.6-4.6); Lymphocytes % 2.1 %; Mean Corpuscular HGB Conc 32.1 g/dL (31.6-35.5); Mean Corpuscular Hemoglobin 29.4 pg (28.0-33.3); Mean Corpuscular Volume 91.8 fL (83.0-100.0); Mean Platelet Volume 10.8 fL (9.4-12.4); Monocytes # 0.5 K/mcL (0.0-1.3); Monocytes % 6.5 %; Neutrophils # 7.1 K/mcL (1.6-8.9); Platelet Count 163 K/mcL (140-400); Red Blood Count 3.43 M/mcL (3.82-4.97); Red Cell Distribution Width 16.3 % (11.5-14.5); Segmented Neutrophils % 90.9 %; White Blood Count 7.8 K/mcL (4.3-11.1)
[2019-02-09 14:55] LABS: INR 2.7; Prothrombin Time 31.2 Seconds (9.4-12.1)
[2019-02-09 15:07] LABS: Calcium 10.3 mg/dL (8.6-10.3); Potassium 4.1 mEq/L (3.5-5.1)
[2019-02-09 15:27] LABS: Anisocytosis 1+ (Not Present); Platelet Estimate Normal (Normal)
[2019-02-09] MEDS: 0.9 % Sodium Chloride 1,000 ML IVC SCH (17:48)
[2019-02-09] MEDS ORDERED: *HR* Warfarin 3 MG TABLET PO ONE (18:00)
[2019-02-09] MEDS: Diltiazem CD (24hr) 180 MG CAPSULE PO SCH (21:00)
[2019-02-10] MEDS: GuaiFENesin/Codeine Oral Soln 5 ML UDC PO PRN (00:48)
[2019-02-10] MEDS: Acetylcysteine 10% 2 ML INHSOL IH SCH ×3 (04:08→21:52)
[2019-02-10] MEDS: Ipratropium/Albuterol Neb 3 ML IH SCH ×4 (04:08→21:52)
[2019-02-10] MEDS ORDERED: Ondansetron 4 MG/2 ML VIAL IVP ONE (04:55)
[2019-02-10 06:31] LABS: INR 3.1; Prothrombin Time 34.9 Seconds (9.4-12.1)
[2019-02-10 06:55] LABS: Calcium 10.3 mg/dL (8.6-10.3); Potassium 4.5 mEq/L (3.5-5.1)
[2019-02-10] MEDS: Aspirin Enteric Coated 81 MG Tablet PO SCH (08:08)
[2019-02-10] MEDS: Sucralfate 1 GM TABLET PO SCH ×4 (08:08→20:49)
[2019-02-10] MEDS: Benzonatate 100 MG CAPSULE PO SCH ×3 (08:08→20:49)
[2019-02-10] MEDS: Cholecalciferol (D-3) 1,000 UNIT (25MCG) TABLET PO SCH (08:09)
[2019-02-10] MEDS: predniSONE 20 MG TABLET PO SCH (08:09)
[2019-02-10] MEDS: 0.9 % Sodium Chloride 1,000 ML IVC SCH (08:09)
[2019-02-10] MEDS: carvediloL 25 MG TABLET PO SCH ×2 (08:09→18:11)
[2019-02-10] MEDS ORDERED: Azithromycin 250 MG TABLET PO ONE (11:38)
[2019-02-10] MEDS ORDERED: cefTRIAXone 1,000 MG in Water for inj. (sterile) 20 ML IVP SCH (16:00)
[2019-02-10] MEDS ORDERED: Azithromycin 500 MG in D5% in Water 250 ML IVPB SCH (16:00)
[2019-02-10] MEDS ORDERED: levoFLOXacin 750 MG/150 ML 750 MG/150 ML BAG IVPB SCH (17:00)
[2019-02-10] MEDS ORDERED: 0.9 % Sodium Chloride 1,000 ML IVC SCH (20:30)
[2019-02-10] MEDS: Diltiazem CD (24hr) 180 MG CAPSULE PO SCH (20:33)
[2019-02-10] MEDS: Saline Nasal Spray 44 ML BOTTLE NS PRN (20:50)
[2019-02-11 01:20] LABS: Creatinine,Urine 102 mg/dL; Sodium, Urine < 10.0 mEq/L
[2019-02-11] MEDS: Ipratropium/Albuterol Neb 3 ML IH SCH ×4 (03:08→22:35)
[2019-02-11] MEDS: GuaiFENesin/Codeine Oral Soln 5 ML UDC PO PRN (03:34)
[2019-02-11 05:57] LABS: Basophils % 0.1 %; Hematocrit 30.3 % (35.3-44.9); Hemoglobin 9.8 g/dL (11.5-15.4); Immature Granulocytes % 0.4 % (0-4); Lymphocytes # 0.3 K/mcL (0.6-4.6); Lymphocytes % 3.5 %; Mean Corpuscular HGB Conc 32.3 g/dL (31.6-35.5); Mean Corpuscular Volume 89.6 fL (83.0-100.0); Mean Platelet Volume 10.3 fL (9.4-12.4); Monocytes % 12.6 %; Neutrophils # 6.4 K/mcL (1.6-8.9); Platelet Count 183 K/mcL (140-400); Red Blood Count 3.38 M/mcL (3.82-4.97); Red Cell Distribution Width 16.6 % (11.5-14.5); Segmented Neutrophils % 83.4 %; White Blood Count 7.7 K/mcL (4.3-11.1)
[2019-02-11 06:02] LABS: INR 3.2; Prothrombin Time 36.9 Seconds (9.4-12.1)
[2019-02-11 06:15] LABS: Magnesium 1.8 mg/dL (1.6-2.6); Potassium 4.7 mEq/L (3.5-5.1)
[2019-02-11] MEDS ORDERED: Ondansetron ODT 4 MG TAB.RAPDIS SL ONE (07:39)
[2019-02-11] MEDS: Benzonatate 100 MG CAPSULE PO SCH ×3 (07:41→21:16)
[2019-02-11] MEDS: Cholecalciferol (D-3) 1,000 UNIT (25MCG) TABLET PO SCH (07:41)
[2019-02-11] MEDS: Sucralfate 1 GM TABLET PO SCH ×4 (07:42→21:15)
[2019-02-11] MEDS: Aspirin Enteric Coated 81 MG Tablet PO SCH (07:42)
[2019-02-11] MEDS: carvediloL 25 MG TABLET PO SCH ×2 (07:42→16:34)
[2019-02-11 10:22] LABS: Hepatitis B Surface Antibody < 3.10 mIU/mL
[2019-02-11 10:33] LABS: Hepatitis B Surface Antigen Nonreactive (Nonreactive)
[2019-02-11] MEDS: Acetylcysteine 10% 2 ML INHSOL IH SCH ×3 (10:43→22:35)
[2019-02-11 11:02] LABS: Hepatitis B Core IgM Nonreactive (Nonreactive)
[2019-02-11] MEDS: Menthol 9.1 MG LOZENGE PO PRN (11:14)
[2019-02-11] MEDS: Saline Nasal Spray 44 ML BOTTLE NS PRN ×2 (11:20→19:50)
[2019-02-11] MEDS ORDERED: Azithromycin 250 MG TABLET PO SCH (11:45)
[2019-02-11] MEDS: 0.9 % Sodium Chloride 1,000 ML IVC SCH (14:32)
[2019-02-11] MEDS ORDERED: Bisacodyl 10 MG RECTAL SUPPOSITORY RC PRN (15:35)
[2019-02-11] MEDS: Ondansetron ODT 4 MG TAB.RAPDIS SL PRN (16:32)
[2019-02-11] MEDS ORDERED: *HR* Warfarin 1 MG TABLET PO ONE (18:00)
[2019-02-11] MEDS: Diltiazem CD (24hr) 180 MG CAPSULE PO SCH (21:15)
[2019-02-11] MEDS ORDERED: Metoclopramide 10 MG/2 ML VIAL IVP ONE (21:25)
[2019-02-11] MEDS ORDERED: Melatonin 3 MG TABLET PO ONE (21:25)
[2019-02-12] MEDS: Ondansetron ODT 4 MG TAB.RAPDIS SL PRN ×2 (02:11→13:46)
[2019-02-12] MEDS: Ipratropium/Albuterol Neb 3 ML IH SCH ×4 (03:27→23:01)
[2019-02-12 04:17] LABS: INR 2.4; Prothrombin Time 27.2 Seconds (9.4-12.1)
[2019-02-12 04:23] LABS: Basophils % 0.2 %; Eosinophils # 0.1 K/mcL (0.0-0.6); Eosinophils % 0.8 %; Hematocrit 32.2 % (35.3-44.9); Hemoglobin 10.4 g/dL (11.5-15.4); Immature Granulocytes % 0.7 % (0-4); Lymphocytes # 0.4 K/mcL (0.6-4.6); Lymphocytes % 4.1 %; Mean Corpuscular HGB Conc 32.3 g/dL (31.6-35.5); Mean Corpuscular Hemoglobin 28.6 pg (28.0-33.3); Mean Corpuscular Volume 88.5 fL (83.0-100.0); Mean Platelet Volume 11.5 fL (9.4-12.4); Monocytes # 0.9 K/mcL (0.0-1.3); Monocytes % 10.5 %; Neutrophils # 7.5 K/mcL (1.6-8.9); Platelet Count 229 K/mcL (140-400); Red Blood Count 3.64 M/mcL (3.82-4.97); Red Cell Distribution Width 16.6 % (11.5-14.5); Segmented Neutrophils % 83.7 %
[2019-02-12 04:34] LABS: Calcium 10.4 mg/dL (8.6-10.3); Potassium 4.6 mEq/L (3.5-5.1)
[2019-02-12] MEDS: GuaiFENesin/Codeine Oral Soln 5 ML UDC PO PRN ×2 (04:54→22:19)
[2019-02-12] MEDS: 0.9 % Sodium Chloride 1,000 ML IVC SCH (06:16)
[2019-02-12] MEDS ORDERED: 0.9 % Sodium Chloride 1,000 ML IVC SCH ×2 (08:01→14:36)
[2019-02-12] MEDS: Sucralfate 1 GM TABLET PO SCH ×4 (08:59→20:44)
[2019-02-12] MEDS: Aspirin Enteric Coated 81 MG Tablet PO SCH (08:59)
[2019-02-12] MEDS: Cholecalciferol (D-3) 1,000 UNIT (25MCG) TABLET PO SCH (09:00)
[2019-02-12] MEDS: Benzonatate 100 MG CAPSULE PO SCH ×3 (09:00→20:43)
[2019-02-12] MEDS: carvediloL 25 MG TABLET PO SCH ×2 (09:00→15:59)
[2019-02-12 09:55] LABS: GBM IgG Multiplex Bead Assay 0 AU/mL (0-19); Glomerular Basement Memb IgG NEGATIVE (Negative); Serine Protease-3 Antibody 0 AU/mL (0-19)
[2019-02-12] MEDS: Acetylcysteine 10% 2 ML INHSOL IH SCH ×3 (10:04→23:03)
[2019-02-12 10:13] LABS: ANA IgG by ELISA DETECTED (None Detected)
[2019-02-12] MEDS ORDERED: Menthol 9.1 MG LOZENGE PO PRN ×2 (10:52→14:36)
[2019-02-12 14:12] LABS: Calcium 9.4 mg/dL (8.6-10.3); Potassium 4.2 mEq/L (3.5-5.1)
[2019-02-12] MEDS ORDERED: Bisacodyl 10 MG RECTAL SUPPOSITORY RC PRN (14:36)
[2019-02-12] MEDS ORDERED: Saline Nasal Spray 44 ML BOTTLE NS PRN (14:36)
[2019-02-12] MEDS ORDERED: Warfarin perPT PO PRN (14:36)
[2019-02-12] MEDS ORDERED: Naloxone 0.4 MG/ML INJ IVP PRN (14:36)
[2019-02-12] MEDS ORDERED: *HR* Warfarin 1 MG TABLET PO ONE ×2 (18:00→18:42)
[2019-02-12] MEDS ORDERED: levoFLOXacin 500 MG/100 ML 500 MG/100 ML BAG IVPB SCH ×2 (18:00)
[2019-02-12 19:56] LABS: ANA HEp-2 IgG IFA <1:80 (<1:80)
[2019-02-12] MEDS: Diltiazem CD (24hr) 180 MG CAPSULE PO SCH (20:43)
[2019-02-13 02:00] LABS: Calcium 9.1 mg/dL (8.6-10.3); Potassium 4.4 mEq/L (3.5-5.1)
[2019-02-13] MEDS: Ipratropium/Albuterol Neb 3 ML IH SCH ×4 (03:35→21:47)
[2019-02-13 05:38] LABS: Calcium 9.5 mg/dL (8.6-10.3); Potassium 4.5 mEq/L (3.5-5.1)
[2019-02-13 05:40] LABS: INR 2.5; Prothrombin Time 27.9 Seconds (9.4-12.1)
[2019-02-13] MEDS: Sucralfate 1 GM TABLET PO SCH ×4 (09:36→20:44)
[2019-02-13] MEDS: Aspirin Enteric Coated 81 MG Tablet PO SCH (09:36)
[2019-02-13] MEDS: Benzonatate 100 MG CAPSULE PO SCH ×3 (09:36→20:42)
[2019-02-13] MEDS: carvediloL 25 MG TABLET PO SCH ×2 (09:36→16:58)
[2019-02-13] MEDS: Cholecalciferol (D-3) 1,000 UNIT (25MCG) TABLET PO SCH (09:36)
[2019-02-13] MEDS: Acetylcysteine 10% 2 ML INHSOL IH SCH ×3 (09:54→21:48)
[2019-02-13] MEDS: Budesonide Neb 0.5 MG/2 ML IH SCH ×2 (10:09→21:47)
[2019-02-13] MEDS ORDERED: Tolvaptan 15 MG TABLET PO ONE (12:40)
[2019-02-13 14:54] LABS: Total Volume 24 Hour,Urine 0.24 Liters (0.60-1.60)
[2019-02-13 15:03] LABS: Creatinine 24 Hour,Urine 197 mg/day (600-1800); Creatinine,Urine 82 mg/dL; Sodium, Urine < 10.0 mEq/L
[2019-02-13] MEDS ORDERED: *HR* Warfarin 3 MG TABLET PO SCH (18:00)
[2019-02-13] MEDS: Diltiazem CD (24hr) 180 MG CAPSULE PO SCH (20:44)
[2019-02-13] MEDS: GuaiFENesin/Codeine Oral Soln 5 ML UDC PO PRN (23:29)
[2019-02-14] MEDS: Ipratropium/Albuterol Neb 3 ML IH SCH ×4 (03:45→22:26)
[2019-02-14 03:49] LABS: Basophils % 0.3 %; Eosinophils # 0.3 K/mcL (0.0-0.6); Eosinophils % 3.4 %; Hematocrit 31.6 % (35.3-44.9); Hemoglobin 10.5 g/dL (11.5-15.4); Immature Granulocytes % 1.7 % (0-4); Lymphocytes # 0.3 K/mcL (0.6-4.6); Lymphocytes % 3.1 %; Mean Corpuscular HGB Conc 33.2 g/dL (31.6-35.5); Mean Corpuscular Hemoglobin 28.8 pg (28.0-33.3); Mean Corpuscular Volume 86.8 fL (83.0-100.0); Mean Platelet Volume 10.4 fL (9.4-12.4); Monocytes # 0.8 K/mcL (0.0-1.3); Monocytes % 8.4 %; Neutrophils # 7.7 K/mcL (1.6-8.9); Platelet Count 256 K/mcL (140-400); Red Blood Count 3.64 M/mcL (3.82-4.97); Red Cell Distribution Width 16.7 % (11.5-14.5); Segmented Neutrophils % 83.1 %; White Blood Count 9.2 K/mcL (4.3-11.1)
[2019-02-14 03:51] LABS: INR 2.4; Prothrombin Time 27.4 Seconds (9.4-12.1)
[2019-02-14 03:56] LABS: Calcium 9.8 mg/dL (8.6-10.3); Magnesium 1.9 mg/dL (1.6-2.6); Potassium 4.6 mEq/L (3.5-5.1)
[2019-02-14] MEDS ORDERED: levoFLOXacin 500 MG/100 ML 500 MG/100 ML BAG IVPB SCH (09:00)
[2019-02-14] MEDS: Cholecalciferol (D-3) 1,000 UNIT (25MCG) TABLET PO SCH (09:46)
[2019-02-14] MEDS: carvediloL 25 MG TABLET PO SCH ×2 (09:46→16:25)
[2019-02-14] MEDS: Sucralfate 1 GM TABLET PO SCH ×4 (09:47→22:18)
[2019-02-14] MEDS: Benzonatate 100 MG CAPSULE PO SCH (09:47)
[2019-02-14] MEDS: Aspirin Enteric Coated 81 MG Tablet PO SCH (09:47)
[2019-02-14] MEDS: Budesonide Neb 0.5 MG/2 ML IH SCH ×2 (10:12→22:26)
[2019-02-14] MEDS: Acetylcysteine 10% 2 ML INHSOL IH SCH ×3 (10:12→22:26)
[2019-02-14] MEDS ORDERED: Azithromycin 500 MG in 0.9 % Sodium Chloride 250 ML IVPB SCH (11:00)
[2019-02-14] MEDS ORDERED: cefTRIAXone 1,000 MG in 0.9 % Sodium Chloride Mini Bag 100 ML IVPB SCH (11:00)
[2019-02-14] MEDS ORDERED: Warfarin perPT PO PRN (11:45)
[2019-02-14] MEDS: Azithromycin 250 MG TABLET PO SCH (12:51)
[2019-02-14] MEDS: cefTRIAXone 1,000 MG in 0.9 % Sodium Chloride Mini Bag 100 ML IVPB SCH (12:52)
[2019-02-14] MEDS: Ondansetron ODT 4 MG TAB.RAPDIS SL PRN (16:24)
[2019-02-14] MEDS ORDERED: *HR* Warfarin 3 MG TABLET PO ONE (18:00)
[2019-02-14] MEDS ORDERED: Tolvaptan 15 MG TABLET PO ONE (21:51)
[2019-02-14] MEDS: Diltiazem CD (24hr) 180 MG CAPSULE PO SCH (22:18)
[2019-02-15 02:59] LABS: Basophils % 0.4 %; Eosinophils # 0.4 K/mcL (0.0-0.6); Eosinophils % 3.6 %; Hematocrit 30.5 % (35.3-44.9); Hemoglobin 10.2 g/dL (11.5-15.4); Immature Granulocytes % 3.1 % (0-4); Lymphocytes # 0.3 K/mcL (0.6-4.6); Lymphocytes % 3.1 %; Mean Corpuscular HGB Conc 33.4 g/dL (31.6-35.5); Mean Corpuscular Volume 86.6 fL (83.0-100.0); Mean Platelet Volume 10.2 fL (9.4-12.4); Monocytes # 0.8 K/mcL (0.0-1.3); Neutrophils # 7.9 K/mcL (1.6-8.9); Platelet Count 280 K/mcL (140-400); Red Blood Count 3.52 M/mcL (3.82-4.97); Red Cell Distribution Width 16.7 % (11.5-14.5); Segmented Neutrophils % 81.8 %; White Blood Count 9.7 K/mcL (4.3-11.1)
[2019-02-15 03:14] LABS: INR 2.1; Prothrombin Time 24.4 Seconds (9.4-12.1)
[2019-02-15 03:22] LABS: Albumin 2.9 g/dL (3.5-5.7); Albumin/Globulin Ratio 0.9 (1.1-2.2); Bilirubin,Direct 0.2 mg/dL (0.0-0.2); Bilirubin,Indirect 0.3 mg/dL (0.0-1.0); Bilirubin,Total 0.5 mg/dL (0.3-1.0); Calcium 10.2 mg/dL (8.6-10.3); Globulin 3.3 g/dL (2.4-3.5); Potassium 4.5 mEq/L (3.5-5.1); Total Protein 6.2 g/dL (6.4-8.9)
[2019-02-15] MEDS: Ipratropium/Albuterol Neb 3 ML IH SCH ×4 (03:23→21:57)
[2019-02-15] MEDS: Aspirin Enteric Coated 81 MG Tablet PO SCH (08:01)
[2019-02-15] MEDS: Cholecalciferol (D-3) 1,000 UNIT (25MCG) TABLET PO SCH (08:01)
[2019-02-15] MEDS: cefTRIAXone 1,000 MG in 0.9 % Sodium Chloride Mini Bag 100 ML IVPB SCH (08:02)
[2019-02-15] MEDS: carvediloL 25 MG TABLET PO SCH ×2 (08:02→17:38)
[2019-02-15] MEDS: Azithromycin 250 MG TABLET PO SCH (08:02)
[2019-02-15] MEDS: Sucralfate 1 GM TABLET PO SCH ×4 (08:02→22:08)
[2019-02-15] MEDS: Budesonide Neb 0.5 MG/2 ML IH SCH ×2 (10:35→21:57)
[2019-02-15] MEDS: Acetylcysteine 10% 2 ML INHSOL IH SCH ×3 (10:35→21:57)
[2019-02-15 12:06] LABS: ABG Base Excess -7 mEq/L (-2 to 3); ABG HCO3 18 mEq/L (21-27); ABG Oxygen Saturation 94 % (95-98); ABG PCO2 36 mmHg (35-45); ABG PH 7.32 pH Units (7.32-7.45); ABG PO2 76 mmHg (85-104); ABG TCO2 19 mEq/L (20-26)
[2019-02-15] MEDS: GuaiFENesin/Codeine Oral Soln 5 ML UDC PO PRN (13:18)
[2019-02-15] MEDS ORDERED: *HR* Warfarin 2.5 MG TABLET PO ONE (18:00)
[2019-02-15] MEDS ORDERED: Menthol 9.1 MG LOZENGE PO PRN (19:42)
[2019-02-15] MEDS: Ondansetron ODT 4 MG TAB.RAPDIS SL PRN (19:54)
[2019-02-15] MEDS: Albuterol 2.5 MG/3 ML NEBULIZER IH PRN (19:58)
[2019-02-15] MEDS: Lactobacillus 1 EACH CAP.SPRINK PO SCH (22:08)
[2019-02-15] MEDS: Diltiazem CD (24hr) 180 MG CAPSULE PO SCH (22:08)
[2019-02-16] MEDS ORDERED: Acetaminophen 325 MG TABLET PO PRN (00:07)
[2019-02-16] MEDS: Ipratropium/Albuterol Neb 3 ML IH SCH ×4 (03:41→21:30)
[2019-02-16 03:51] LABS: Basophils % 0.5 %; Eosinophils # 0.3 K/mcL (0.0-0.6); Eosinophils % 3.5 %; Hematocrit 29.4 % (35.3-44.9); Hemoglobin 9.7 g/dL (11.5-15.4); Immature Granulocytes % 4.3 % (0-4); Lymphocytes # 0.4 K/mcL (0.6-4.6); Lymphocytes % 5.3 %; Mean Corpuscular Hemoglobin 28.7 pg (28.0-33.3); Monocytes # 0.7 K/mcL (0.0-1.3); Monocytes % 8.6 %; Neutrophils # 6.5 K/mcL (1.6-8.9); Platelet Count 260 K/mcL (140-400); Red Blood Count 3.38 M/mcL (3.82-4.97); Red Cell Distribution Width 16.9 % (11.5-14.5); Segmented Neutrophils % 77.8 %; White Blood Count 8.3 K/mcL (4.3-11.1)
[2019-02-16 03:52] LABS: INR 1.8; Prothrombin Time 20.3 Seconds (9.4-12.1)
[2019-02-16 04:09] LABS: Calcium 9.9 mg/dL (8.6-10.3); Magnesium 1.9 mg/dL (1.6-2.6); Potassium 4.5 mEq/L (3.5-5.1)
[2019-02-16] MEDS ORDERED: levoFLOXacin 500 MG TABLET PO SCH (09:00)
[2019-02-16] MEDS: carvediloL 25 MG TABLET PO SCH ×2 (09:59→17:41)
[2019-02-16] MEDS: Lactobacillus 1 EACH CAP.SPRINK PO SCH ×2 (10:14→20:26)
[2019-02-16] MEDS: Sucralfate 1 GM TABLET PO SCH ×4 (10:14→20:25)
[2019-02-16] MEDS: Cholecalciferol (D-3) 1,000 UNIT (25MCG) TABLET PO SCH (10:14)
[2019-02-16] MEDS: Azithromycin 250 MG TABLET PO SCH (10:14)
[2019-02-16] MEDS: Aspirin Enteric Coated 81 MG Tablet PO SCH (10:14)
[2019-02-16] MEDS: Budesonide Neb 0.5 MG/2 ML IH SCH ×2 (10:36→21:30)
[2019-02-16] MEDS: Acetylcysteine 10% 2 ML INHSOL IH SCH ×3 (10:36→21:30)
[2019-02-16] MEDS ORDERED: Tolvaptan 15 MG TABLET PO ONE (11:49)
[2019-02-16] MEDS: MOM Conc 10 ML UD.LIQ PO SCH (11:59)
[2019-02-16] MEDS: Piperacillin/Tazobactam 3.375 GM in 0.9 % Sodium Chloride Mini Bag 100 ML IVPB SCH ×2 (11:59→17:41)
[2019-02-16] MEDS: Ondansetron ODT 4 MG TAB.RAPDIS SL PRN (14:01)
[2019-02-16] MEDS ORDERED: *HR* Warfarin 2.5 MG TABLET PO ONE (18:00)
[2019-02-16] MEDS: Diltiazem CD (24hr) 180 MG CAPSULE PO SCH (20:25)
[2019-02-16] MEDS: GuaiFENesin/Codeine Oral Soln 5 ML UDC PO PRN (20:40)
[2019-02-17] MEDS: Benzonatate 100 MG CAPSULE PO PRN (00:36)
[2019-02-17] MEDS: Ipratropium/Albuterol Neb 3 ML IH SCH ×4 (03:26→22:08)
[2019-02-17 04:16] LABS: Basophils # 0.1 K/mcL (0.0-0.2); Basophils % 0.5 %; Eosinophils # 0.3 K/mcL (0.0-0.6); Eosinophils % 2.4 %; Hematocrit 30.4 % (35.3-44.9); Hemoglobin 9.7 g/dL (11.5-15.4); Immature Granulocytes % 4.3 % (0-4); Lymphocytes # 0.5 K/mcL (0.6-4.6); Lymphocytes % 4.2 %; Mean Corpuscular HGB Conc 31.9 g/dL (31.6-35.5); Mean Corpuscular Hemoglobin 28.9 pg (28.0-33.3); Mean Corpuscular Volume 90.5 fL (83.0-100.0); Mean Platelet Volume 10.4 fL (9.4-12.4); Monocytes # 0.8 K/mcL (0.0-1.3); Platelet Count 272 K/mcL (140-400); Red Blood Count 3.36 M/mcL (3.82-4.97); Red Cell Distribution Width 17.2 % (11.5-14.5); Segmented Neutrophils % 81.6 %; White Blood Count 11.1 K/mcL (4.3-11.1)
[2019-02-17 04:31] LABS: Calcium 9.9 mg/dL (8.6-10.3); Magnesium 2.2 mg/dL (1.6-2.6); Potassium 4.8 mEq/L (3.5-5.1)
[2019-02-17] MEDS: Piperacillin/Tazobactam 3.375 GM in 0.9 % Sodium Chloride Mini Bag 100 ML IVPB SCH ×2 (06:01→17:27)
[2019-02-17] MEDS: Aspirin Enteric Coated 81 MG Tablet PO SCH (07:47)
[2019-02-17] MEDS: Cholecalciferol (D-3) 1,000 UNIT (25MCG) TABLET PO SCH (07:47)
[2019-02-17] MEDS: Sucralfate 1 GM TABLET PO SCH ×4 (07:48→21:30)
[2019-02-17] MEDS: Bisacodyl 10 MG RECTAL SUPPOSITORY RC SCH (07:48)
[2019-02-17] MEDS: carvediloL 25 MG TABLET PO SCH ×2 (07:48→17:26)
[2019-02-17] MEDS: Lactobacillus 1 EACH CAP.SPRINK PO SCH ×2 (07:48→21:28)
[2019-02-17] MEDS: MOM Conc 10 ML UD.LIQ PO SCH (07:48)
[2019-02-17] MEDS: Acetylcysteine 10% 2 ML INHSOL IH SCH ×3 (09:51→22:08)
[2019-02-17] MEDS: Budesonide Neb 0.5 MG/2 ML IH SCH ×2 (09:51→22:09)
[2019-02-17] MEDS ORDERED: 0.9 % Sodium Chloride 1,000 ML IVC SCH (11:45)
[2019-02-17] MEDS: GuaiFENesin/Codeine Oral Soln 5 ML UDC PO PRN (17:34)
[2019-02-17] MEDS ORDERED: *HR* Warfarin 2.5 MG TABLET PO ONE (18:00)
[2019-02-17] MEDS: Ondansetron ODT 4 MG TAB.RAPDIS SL PRN (19:52)
[2019-02-17] MEDS: Diltiazem CD (24hr) 180 MG CAPSULE PO SCH (21:28)
[2019-02-18] MEDS: Ipratropium/Albuterol Neb 3 ML IH SCH ×4 (03:42→21:16)
[2019-02-18] MEDS: Acetylcysteine 10% 2 ML INHSOL IH SCH ×3 (03:43→21:17)
[2019-02-18 04:51] LABS: INR 3.3; Prothrombin Time 37.7 Seconds (9.4-12.1)
[2019-02-18 04:55] LABS: Hematocrit 30.1 % (35.3-44.9); Hemoglobin 9.5 g/dL (11.5-15.4); Mean Corpuscular HGB Conc 31.6 g/dL (31.6-35.5); Mean Corpuscular Hemoglobin 28.7 pg (28.0-33.3); Mean Corpuscular Volume 90.9 fL (83.0-100.0); Mean Platelet Volume 10.2 fL (9.4-12.4); Platelet Count 247 K/mcL (140-400); Red Blood Count 3.31 M/mcL (3.82-4.97); Red Cell Distribution Width 17.2 % (11.5-14.5); White Blood Count 11.7 K/mcL (4.3-11.1)
[2019-02-18 05:00] LABS: Calcium 9.7 mg/dL (8.6-10.3)
[2019-02-18] MEDS: Piperacillin/Tazobactam 3.375 GM in 0.9 % Sodium Chloride Mini Bag 100 ML IVPB SCH ×2 (05:13→18:08)
[2019-02-18] MEDS ORDERED: 0.9 % Sodium Chloride 250 ML IVC PRN (06:47)
[2019-02-18] MEDS ORDERED: Albumin 25% 25gram/100mL 25 GM/100 ML IV.SOLN IVPB PRN (06:47)
[2019-02-18] MEDS ORDERED: 0.9 % Sodium Chloride 1,000 ML PRIME SCH (07:00)
[2019-02-18] MEDS ORDERED: *HR* Phytonadione 5 MG TABLET PO ONE (07:41)
[2019-02-18] MEDS: Sucralfate 1 GM TABLET PO SCH ×4 (08:10→21:01)
[2019-02-18] MEDS: Bisacodyl 10 MG RECTAL SUPPOSITORY RC SCH (08:10)
[2019-02-18] MEDS: Cholecalciferol (D-3) 1,000 UNIT (25MCG) TABLET PO SCH (08:10)
[2019-02-18] MEDS: Lactobacillus 1 EACH CAP.SPRINK PO SCH ×2 (08:10→21:01)
[2019-02-18] MEDS: Aspirin Enteric Coated 81 MG Tablet PO SCH (08:10)
[2019-02-18] MEDS: MOM Conc 10 ML UD.LIQ PO SCH (08:11)
[2019-02-18] MEDS: Ondansetron ODT 4 MG TAB.RAPDIS SL PRN (08:26)
[2019-02-18] MEDS: carvediloL 25 MG TABLET PO SCH ×2 (09:34→17:14)
[2019-02-18] MEDS: Budesonide Neb 0.5 MG/2 ML IH SCH ×2 (10:53→21:16)
[2019-02-18 13:46] LABS: INR 2.8; Prothrombin Time 31.8 Seconds (9.4-12.1)
[2019-02-18] MEDS ORDERED: Heparin 1,000 UNITS/500 mL 500 ML ONE (13:58)
[2019-02-18] MEDS ORDERED: Chloroprocaine/PF 20 ML VIAL INFILT ONE (15:03)
[2019-02-18] MEDS ORDERED: *HR* Heparin 5,000 UNIT/ML VIAL ONE (15:13)
[2019-02-18] MEDS ORDERED: *HR* Heparin 10,000 UNIT/10 ML VIAL IV PRN (17:12)
[2019-02-18] MEDS: Psyllium 1 PACKET POWD.PACK PO SCH ×2 (17:14→21:01)
[2019-02-18] MEDS: GuaiFENesin/Codeine Oral Soln 5 ML UDC PO PRN (21:01)
[2019-02-18] MEDS: Diltiazem CD (24hr) 180 MG CAPSULE PO SCH (21:01)
[2019-02-18] MEDS: Lactulose Oral Soln 20 GM/30 ML UDC PO SCH (21:01)
[2019-02-19] MEDS: Ipratropium/Albuterol Neb 3 ML IH SCH ×4 (04:12→21:50)
[2019-02-19 04:18] LABS: Hematocrit 26.9 % (35.3-44.9); Mean Corpuscular HGB Conc 33.5 g/dL (31.6-35.5); Mean Corpuscular Hemoglobin 28.8 pg (28.0-33.3); Mean Corpuscular Volume 86.2 fL (83.0-100.0); Mean Platelet Volume 10.2 fL (9.4-12.4); Platelet Count 179 K/mcL (140-400); Red Blood Count 3.12 M/mcL (3.82-4.97); Red Cell Distribution Width 17.5 % (11.5-14.5); White Blood Count 11.9 K/mcL (4.3-11.1)
[2019-02-19 04:19] LABS: INR 1.7; Prothrombin Time 19.8 Seconds (9.4-12.1)
[2019-02-19 04:33] LABS: Calcium 9.2 mg/dL (8.6-10.3); Potassium 4.4 mEq/L (3.5-5.1)
[2019-02-19] MEDS: Piperacillin/Tazobactam 3.375 GM in 0.9 % Sodium Chloride Mini Bag 100 ML IVPB SCH ×2 (05:29→20:20)
[2019-02-19] MEDS ORDERED: 0.9 % Sodium Chloride 250 ML IVC PRN (08:47)
[2019-02-19] MEDS ORDERED: *HR* Heparin 10,000 UNIT/10 ML VIAL IV PRN (08:47)
[2019-02-19] MEDS: carvediloL 25 MG TABLET PO SCH ×2 (09:04→15:05)
[2019-02-19] MEDS: Cholecalciferol (D-3) 1,000 UNIT (25MCG) TABLET PO SCH (09:10)
[2019-02-19] MEDS: Lactobacillus 1 EACH CAP.SPRINK PO SCH ×2 (09:10→20:22)
[2019-02-19] MEDS: Sucralfate 1 GM TABLET PO SCH ×4 (09:10→20:22)
[2019-02-19] MEDS: Aspirin Enteric Coated 81 MG Tablet PO SCH (09:10)
[2019-02-19] MEDS: Bisacodyl 10 MG RECTAL SUPPOSITORY RC SCH (09:10)
[2019-02-19] MEDS: Psyllium 1 PACKET POWD.PACK PO SCH ×3 (09:11→20:00)
[2019-02-19] MEDS: MOM Conc 10 ML UD.LIQ PO SCH (09:11)
[2019-02-19] MEDS: Lactulose Oral Soln 20 GM/30 ML UDC PO SCH (09:11)
[2019-02-19] MEDS: Acetylcysteine 10% 2 ML INHSOL IH SCH ×3 (09:57→21:51)
[2019-02-19] MEDS: Budesonide Neb 0.5 MG/2 ML IH SCH ×2 (09:57→21:50)
[2019-02-19] MEDS: predniSONE 20 MG TABLET PO SCH (11:46)
[2019-02-19] MEDS ORDERED: SODIUM CHLORIDE 0.9% IVPB SCH (13:15)
[2019-02-19] MEDS ORDERED: DESMOPRESSIN ACETATE IVPB SCH (13:15)
[2019-02-19 14:48] LABS: Hematocrit 25.6 % (35.3-44.9); Hemoglobin 8.5 g/dL (11.5-15.4)
[2019-02-19] MEDS ORDERED: 0.9 % Sodium Chloride 500 ML ONE (15:27)
[2019-02-19] MEDS ORDERED: *HR* Phytonadione 10 MG/ML AMPUL SQ ONE (17:16)
[2019-02-19] MEDS ORDERED: SODIUM CHLORIDE 0.9% IVPB ONE (17:30)
[2019-02-19] MEDS ORDERED: DESMOPRESSIN ACETATE IVPB ONE (17:30)
[2019-02-19] MEDS ORDERED: Lidocaine/EPI 1:100k 1% 30 ML VIAL INFILT ONE (17:45)
[2019-02-19] MEDS ORDERED: 0.9 % Sodium Chloride 250 ML ONE (17:59)
[2019-02-19] MEDS ORDERED: *HR* Warfarin 3 MG TABLET PO ONE (18:00)
[2019-02-19] MEDS: cefTRIAXone 1,000 MG in 0.9 % Sodium Chloride Mini Bag 100 ML IVPB SCH (20:04)
[2019-02-19] MEDS: Diltiazem CD (24hr) 180 MG CAPSULE PO SCH (20:22)
[2019-02-20] MEDS: Ipratropium/Albuterol Neb 3 ML IH SCH ×4 (04:12→21:22)
[2019-02-20] MEDS ORDERED: 0.9 % Sodium Chloride 250 ML IVC SCH (05:00)
[2019-02-20 05:02] LABS: Hematocrit 25.1 % (35.3-44.9); Hemoglobin 7.9 g/dL (11.5-15.4); Mean Corpuscular HGB Conc 31.5 g/dL (31.6-35.5); Mean Corpuscular Hemoglobin 28.6 pg (28.0-33.3); Mean Corpuscular Volume 90.9 fL (83.0-100.0); Mean Platelet Volume 10.4 fL (9.4-12.4); Platelet Count 150 K/mcL (140-400); Red Blood Count 2.76 M/mcL (3.82-4.97); Red Cell Distribution Width 17.6 % (11.5-14.5); White Blood Count 9.1 K/mcL (4.3-11.1)
[2019-02-20 05:09] LABS: INR 1.5; Prothrombin Time 17.2 Seconds (9.4-12.1)
[2019-02-20 05:19] LABS: Calcium 9.2 mg/dL (8.6-10.3); Potassium 5.2 mEq/L (3.5-5.1)
[2019-02-20] MEDS: Piperacillin/Tazobactam 3.375 GM in 0.9 % Sodium Chloride Mini Bag 100 ML IVPB SCH ×2 (07:18→17:59)
[2019-02-20] MEDS ORDERED: SODIUM CHLORIDE 0.9% IVPB ONE (07:30)
[2019-02-20] MEDS ORDERED: DESMOPRESSIN ACETATE IVPB ONE (07:30)
[2019-02-20] MEDS ORDERED: Silver Nitrate Applicator 1 STICK..EA. TP ONE (08:43)
[2019-02-20] MEDS: Bisacodyl 10 MG RECTAL SUPPOSITORY RC SCH (08:54)
[2019-02-20] MEDS: carvediloL 25 MG TABLET PO SCH ×2 (08:54→16:38)
[2019-02-20] MEDS: Psyllium 1 PACKET POWD.PACK PO SCH ×3 (08:54→22:41)
[2019-02-20] MEDS: MOM Conc 10 ML UD.LIQ PO SCH ×2 (08:54→09:32)
[2019-02-20] MEDS: Lactobacillus 1 EACH CAP.SPRINK PO SCH ×3 (09:22→22:40)
[2019-02-20] MEDS: Sucralfate 1 GM TABLET PO SCH ×4 (09:32→22:40)
[2019-02-20] MEDS: Lactulose Oral Soln 20 GM/30 ML UDC PO SCH (09:32)
[2019-02-20] MEDS: predniSONE 20 MG TABLET PO SCH (09:33)
[2019-02-20] MEDS: Cholecalciferol (D-3) 1,000 UNIT (25MCG) TABLET PO SCH (09:33)
[2019-02-20] MEDS: Acetylcysteine 10% 2 ML INHSOL IH SCH ×3 (10:26→21:22)
[2019-02-20] MEDS: Budesonide Neb 0.5 MG/2 ML IH SCH ×2 (10:32→21:22)
[2019-02-20] MEDS: Diltiazem CD (24hr) 180 MG CAPSULE PO SCH (22:40)
[2019-02-21] MEDS: Ipratropium/Albuterol Neb 3 ML IH SCH ×4 (03:57→21:51)
[2019-02-21] MEDS: Piperacillin/Tazobactam 3.375 GM in 0.9 % Sodium Chloride Mini Bag 100 ML IVPB SCH ×2 (05:36→17:23)
[2019-02-21 05:58] LABS: Hemoglobin 6.9 g/dL (11.5-15.4); Mean Corpuscular HGB Conc 32.9 g/dL (31.6-35.5); Mean Corpuscular Hemoglobin 28.4 pg (28.0-33.3); Mean Corpuscular Volume 86.4 fL (83.0-100.0); Mean Platelet Volume 10.4 fL (9.4-12.4); Platelet Count 156 K/mcL (140-400); Red Blood Count 2.43 M/mcL (3.82-4.97); Red Cell Distribution Width 17.6 % (11.5-14.5); White Blood Count 10.3 K/mcL (4.3-11.1)
[2019-02-21 06:01] LABS: INR 1.4; Prothrombin Time 15.8 Seconds (9.4-12.1)
[2019-02-21 06:16] LABS: Calcium 9.3 mg/dL (8.6-10.3); Magnesium 2.9 mg/dL (1.6-2.6); Potassium 5.2 mEq/L (3.5-5.1)
[2019-02-21] MEDS ORDERED: 0.9 % Sodium Chloride 250 ML IVC PRN (07:49)
[2019-02-21] MEDS ORDERED: *HR* Heparin 10,000 UNIT/10 ML VIAL IV PRN (07:49)
[2019-02-21] MEDS ORDERED: 0.9 % Sodium Chloride 1,000 ML PRIME SCH (08:00)
[2019-02-21] MEDS: Lactobacillus 1 EACH CAP.SPRINK PO SCH ×2 (08:36→22:10)
[2019-02-21] MEDS: Cholecalciferol (D-3) 1,000 UNIT (25MCG) TABLET PO SCH (08:36)
[2019-02-21] MEDS: Sucralfate 1 GM TABLET PO SCH ×4 (08:37→22:08)
[2019-02-21] MEDS: carvediloL 25 MG TABLET PO SCH ×2 (08:37→17:35)
[2019-02-21] MEDS: predniSONE 20 MG TABLET PO SCH (08:37)
[2019-02-21] MEDS: Psyllium 1 PACKET POWD.PACK PO SCH ×3 (08:39→20:07)
[2019-02-21] MEDS: Bisacodyl 10 MG RECTAL SUPPOSITORY RC SCH (08:39)
[2019-02-21] MEDS: Lactulose Oral Soln 20 GM/30 ML UDC PO SCH (08:40)
[2019-02-21] MEDS: MOM Conc 10 ML UD.LIQ PO SCH (08:41)
[2019-02-21] MEDS ORDERED: 0.9 % Sodium Chloride 250 ML ONE (10:12)
[2019-02-21] MEDS: Acetylcysteine 10% 2 ML INHSOL IH SCH ×3 (10:35→21:51)
[2019-02-21] MEDS: Budesonide Neb 0.5 MG/2 ML IH SCH ×2 (11:14→21:51)
[2019-02-21] MEDS ORDERED: Bupivacaine-MPF 0.25% 10 ML VIAL INFILT ONE (14:46)
[2019-02-21] MEDS: Diltiazem CD (24hr) 180 MG CAPSULE PO SCH (22:10)
[2019-02-22] MEDS: Ipratropium/Albuterol Neb 3 ML IH SCH ×4 (04:20→22:48)
[2019-02-22] MEDS: Piperacillin/Tazobactam 3.375 GM in 0.9 % Sodium Chloride Mini Bag 100 ML IVPB SCH ×2 (05:34→17:02)
[2019-02-22 05:41] LABS: Hematocrit 28.2 % (35.3-44.9); Mean Corpuscular HGB Conc 33.3 g/dL (31.6-35.5); Mean Corpuscular Hemoglobin 29.6 pg (28.0-33.3); Mean Corpuscular Volume 88.7 fL (83.0-100.0); Mean Platelet Volume 10.3 fL (9.4-12.4); Platelet Count 101 K/mcL (140-400); Red Blood Count 3.18 M/mcL (3.82-4.97); Red Cell Distribution Width 15.9 % (11.5-14.5); White Blood Count 14.7 K/mcL (4.3-11.1)
[2019-02-22 05:42] LABS: INR 1.4; Prothrombin Time 16.4 Seconds (9.4-12.1)
[2019-02-22 05:45] LABS: Hemoglobin 9.4 g/dL (11.5-15.4)
[2019-02-22 05:59] LABS: Calcium 8.8 mg/dL (8.6-10.3)
[2019-02-22] MEDS ORDERED: SODIUM CHLORIDE 0.9% IVPB ONE (07:30)
[2019-02-22] MEDS ORDERED: DESMOPRESSIN ACETATE IVPB ONE (07:30)
[2019-02-22] MEDS: carvediloL 25 MG TABLET PO SCH ×2 (07:37→17:02)
[2019-02-22] MEDS: Sucralfate 1 GM TABLET PO SCH ×4 (07:37→20:57)
[2019-02-22] MEDS: predniSONE 20 MG TABLET PO SCH (07:37)
[2019-02-22] MEDS: Lactobacillus 1 EACH CAP.SPRINK PO SCH ×2 (07:37→20:56)
[2019-02-22] MEDS: Cholecalciferol (D-3) 1,000 UNIT (25MCG) TABLET PO SCH (07:37)
[2019-02-22] MEDS: Benzonatate 100 MG CAPSULE PO PRN ×2 (07:37→17:02)
[2019-02-22] MEDS: Bisacodyl 10 MG RECTAL SUPPOSITORY RC SCH (07:38)
[2019-02-22] MEDS: Psyllium 1 PACKET POWD.PACK PO SCH ×3 (07:38→20:52)
[2019-02-22] MEDS: Lactulose Oral Soln 20 GM/30 ML UDC PO SCH (07:38)
[2019-02-22] MEDS: MOM Conc 10 ML UD.LIQ PO SCH (07:38)
[2019-02-22] MEDS ORDERED: *HR* Heparin 10,000 UNIT/10 ML VIAL IV PRN (07:40)
[2019-02-22] MEDS ORDERED: 0.9 % Sodium Chloride 250 ML IVC PRN (07:40)
[2019-02-22] MEDS ORDERED: 0.9 % Sodium Chloride 1,000 ML PRIME SCH (07:45)
[2019-02-22] MEDS: Budesonide Neb 0.5 MG/2 ML IH SCH ×2 (10:37→22:48)
[2019-02-22] MEDS: Acetylcysteine 10% 2 ML INHSOL IH SCH ×3 (10:37→22:48)
[2019-02-22] MEDS: Diltiazem CD (24hr) 180 MG CAPSULE PO SCH (20:56)
[2019-02-23] MEDS: Ipratropium/Albuterol Neb 3 ML IH SCH ×4 (04:09→21:47)
[2019-02-23 04:48] LABS: Basophils % 0.1 %; Hemoglobin 9.2 g/dL (11.5-15.4); Immature Granulocytes % 1.1 % (0-4); Monocytes % 4.8 %; Red Cell Distribution Width 15.9 % (11.5-14.5)
[2019-02-23 04:49] LABS: Hematocrit 26.6 % (35.3-44.9); Immature Platelets 4.7 % (1.1-6.1); Lymphocytes # 0.4 K/mcL (0.6-4.6); Lymphocytes % 2.9 %; Mean Corpuscular HGB Conc 34.6 g/dL (31.6-35.5); Mean Corpuscular Hemoglobin 29.6 pg (28.0-33.3); Mean Corpuscular Volume 85.5 fL (83.0-100.0); Mean Platelet Volume 10.8 fL (9.4-12.4); Monocytes # 0.6 K/mcL (0.0-1.3); Neutrophils # 11.7 K/mcL (1.6-8.9); Red Blood Count 3.11 M/mcL (3.82-4.97); Segmented Neutrophils % 91.1 %; White Blood Count 12.8 K/mcL (4.3-11.1)
[2019-02-23 04:58] LABS: INR 1.4; Prothrombin Time 15.8 Seconds (9.4-12.1)
[2019-02-23 05:06] LABS: Calcium 8.7 mg/dL (8.6-10.3); Potassium 3.9 mEq/L (3.5-5.1)
[2019-02-23 05:35] LABS: Platelet Count 76 K/mcL (140-400)
[2019-02-23] MEDS: Piperacillin/Tazobactam 3.375 GM in 0.9 % Sodium Chloride Mini Bag 100 ML IVPB SCH (06:34)
[2019-02-23] MEDS: predniSONE 20 MG TABLET PO SCH (08:47)
[2019-02-23] MEDS: Lactobacillus 1 EACH CAP.SPRINK PO SCH ×2 (08:47→20:06)
[2019-02-23] MEDS: Cholecalciferol (D-3) 1,000 UNIT (25MCG) TABLET PO SCH (08:47)
[2019-02-23] MEDS: Lactulose Oral Soln 20 GM/30 ML UDC PO SCH (08:48)
[2019-02-23] MEDS: MOM Conc 10 ML UD.LIQ PO SCH (08:48)
[2019-02-23] MEDS: Psyllium 1 PACKET POWD.PACK PO SCH ×3 (08:48→20:04)
[2019-02-23] MEDS: Sucralfate 1 GM TABLET PO SCH ×4 (08:48→20:06)
[2019-02-23] MEDS: Bisacodyl 10 MG RECTAL SUPPOSITORY RC SCH (08:50)
[2019-02-23] MEDS ORDERED: 0.9 % Sodium Chloride 250 ML IVC PRN (09:06)
[2019-02-23] MEDS: Budesonide Neb 0.5 MG/2 ML IH SCH ×2 (11:21→21:47)
[2019-02-23] MEDS: Acetylcysteine 10% 2 ML INHSOL IH SCH (11:21)
[2019-02-23 13:31] LABS: Albumin 3.4 g/dL (3.5-5.7); Albumin/Globulin Ratio 1.2 (1.1-2.2); Bilirubin,Direct 0.3 mg/dL (0.0-0.2); Bilirubin,Indirect 0.4 mg/dL (0.0-1.0); Bilirubin,Total 0.7 mg/dL (0.3-1.0); Globulin 2.9 g/dL (2.4-3.5); Total Protein 6.3 g/dL (6.4-8.9)
[2019-02-23] MEDS: carvediloL 25 MG TABLET PO SCH ×2 (14:44→17:56)
[2019-02-23] MEDS: Diltiazem CD (24hr) 180 MG CAPSULE PO SCH (20:06)
[2019-02-24] MEDS: Ondansetron ODT 4 MG TAB.RAPDIS SL PRN (00:05)
[2019-02-24] MEDS: Ipratropium/Albuterol Neb 3 ML IH SCH ×4 (03:59→23:54)
[2019-02-24 04:42] LABS: Hemoglobin 8.7 g/dL (11.5-15.4)
[2019-02-24 04:44] LABS: Hematocrit 25.9 % (35.3-44.9); Immature Platelets 6.9 % (1.1-6.1); Mean Corpuscular HGB Conc 33.6 g/dL (31.6-35.5); Mean Corpuscular Volume 86.3 fL (83.0-100.0); Mean Platelet Volume 10.7 fL (9.4-12.4); Red Cell Distribution Width 15.9 % (11.5-14.5); White Blood Count 11.8 K/mcL (4.3-11.1)
[2019-02-24 05:20] LABS: Calcium 8.4 mg/dL (8.6-10.3); Potassium 3.9 mEq/L (3.5-5.1)
[2019-02-24] MEDS: Bisacodyl 10 MG RECTAL SUPPOSITORY RC SCH (09:17)
[2019-02-24] MEDS: MOM Conc 10 ML UD.LIQ PO SCH (09:17)
[2019-02-24] MEDS: Lactulose Oral Soln 20 GM/30 ML UDC PO SCH (09:17)
[2019-02-24] MEDS: Psyllium 1 PACKET POWD.PACK PO SCH ×3 (09:17→20:32)
[2019-02-24] MEDS: Sucralfate 1 GM TABLET PO SCH ×4 (09:42→20:42)
[2019-02-24] MEDS: Cholecalciferol (D-3) 1,000 UNIT (25MCG) TABLET PO SCH (09:42)
[2019-02-24] MEDS: predniSONE 20 MG TABLET PO SCH (09:42)
[2019-02-24] MEDS: carvediloL 25 MG TABLET PO SCH ×2 (09:42→16:11)
[2019-02-24] MEDS: Lactobacillus 1 EACH CAP.SPRINK PO SCH ×2 (09:42→20:42)
[2019-02-24] MEDS: Budesonide Neb 0.5 MG/2 ML IH SCH ×2 (10:41→23:54)
[2019-02-24] MEDS: Diltiazem CD (24hr) 180 MG CAPSULE PO SCH (20:42)
[2019-02-25] MEDS: Albuterol 2.5 MG/3 ML NEBULIZER IH PRN (00:55)
[2019-02-25] MEDS: Ondansetron ODT 4 MG TAB.RAPDIS SL PRN ×2 (01:25→21:43)
[2019-02-25] MEDS: Ipratropium/Albuterol Neb 3 ML IH SCH ×4 (04:08→22:35)
[2019-02-25 04:33] LABS: Hematocrit 25.6 % (35.3-44.9); Hemoglobin 8.5 g/dL (11.5-15.4); Immature Platelets 5.8 % (1.1-6.1); Mean Corpuscular HGB Conc 33.2 g/dL (31.6-35.5); Mean Corpuscular Hemoglobin 28.8 pg (28.0-33.3); Mean Corpuscular Volume 86.8 fL (83.0-100.0); Mean Platelet Volume 11.1 fL (9.4-12.4); Red Blood Count 2.95 M/mcL (3.82-4.97); Red Cell Distribution Width 15.4 % (11.5-14.5); White Blood Count 12.8 K/mcL (4.3-11.1)
[2019-02-25 04:55] LABS: Calcium 8.2 mg/dL (8.6-10.3); Potassium 3.9 mEq/L (3.5-5.1)
[2019-02-25] MEDS: Lactobacillus 1 EACH CAP.SPRINK PO SCH ×2 (08:12→21:43)
[2019-02-25] MEDS: Sucralfate 1 GM TABLET PO SCH ×4 (08:12→21:43)
[2019-02-25] MEDS: Cholecalciferol (D-3) 1,000 UNIT (25MCG) TABLET PO SCH (08:12)
[2019-02-25] MEDS: carvediloL 25 MG TABLET PO SCH ×2 (08:12→17:50)
[2019-02-25] MEDS: Lactulose Oral Soln 20 GM/30 ML UDC PO SCH (08:13)
[2019-02-25] MEDS: MOM Conc 10 ML UD.LIQ PO SCH (08:13)
[2019-02-25] MEDS: Psyllium 1 PACKET POWD.PACK PO SCH ×3 (08:13→21:40)
[2019-02-25] MEDS: Bisacodyl 10 MG RECTAL SUPPOSITORY RC SCH (08:13)
[2019-02-25] MEDS: Budesonide Neb 0.5 MG/2 ML IH SCH ×2 (10:47→22:35)
[2019-02-25] MEDS: Diltiazem CD (24hr) 180 MG CAPSULE PO SCH (21:43)
[2019-02-26] MEDS: Ipratropium/Albuterol Neb 3 ML IH SCH ×4 (04:11→22:45)
[2019-02-26 06:04] LABS: Hematocrit 26.6 % (35.3-44.9); Mean Corpuscular HGB Conc 33.8 g/dL (31.6-35.5); Mean Corpuscular Hemoglobin 29.7 pg (28.0-33.3); Mean Corpuscular Volume 87.8 fL (83.0-100.0); Mean Platelet Volume 11.5 fL (9.4-12.4); Platelet Count 130 K/mcL (140-400); Red Blood Count 3.03 M/mcL (3.82-4.97); Red Cell Distribution Width 15.3 % (11.5-14.5)
[2019-02-26 06:20] LABS: Calcium 8.1 mg/dL (8.6-10.3); Potassium 3.8 mEq/L (3.5-5.1)
[2019-02-26] MEDS: Lactobacillus 1 EACH CAP.SPRINK PO SCH ×2 (09:09→20:18)
[2019-02-26] MEDS: Cholecalciferol (D-3) 1,000 UNIT (25MCG) TABLET PO SCH (09:09)
[2019-02-26] MEDS: Bisacodyl 10 MG RECTAL SUPPOSITORY RC SCH (09:10)
[2019-02-26] MEDS: Psyllium 1 PACKET POWD.PACK PO SCH ×3 (09:10→23:02)
[2019-02-26] MEDS: Lactulose Oral Soln 20 GM/30 ML UDC PO SCH (09:10)
[2019-02-26] MEDS: MOM Conc 10 ML UD.LIQ PO SCH (09:10)
[2019-02-26] MEDS: carvediloL 25 MG TABLET PO SCH ×2 (09:10→17:25)
[2019-02-26] MEDS: Sucralfate 1 GM TABLET PO SCH ×4 (09:10→20:18)
[2019-02-26] MEDS: Budesonide Neb 0.5 MG/2 ML IH SCH ×2 (10:51→20:33)
[2019-02-26] MEDS: Acetylcysteine 10% 2 ML INHSOL IH SCH ×4 (10:51→22:45)
[2019-02-26] MEDS: Diltiazem CD (24hr) 180 MG CAPSULE PO SCH (20:17)
[2019-02-26] MEDS: Albuterol 2.5 MG/3 ML NEBULIZER IH PRN (20:33)
[2019-02-27] MEDS: Acetylcysteine 10% 2 ML INHSOL IH SCH ×6 (04:19→23:19)
[2019-02-27] MEDS: Ipratropium/Albuterol Neb 3 ML IH SCH ×5 (04:19→23:19)
[2019-02-27 06:24] LABS: Eosinophils # 0.2 K/mcL (0.0-0.6); Eosinophils % 2.2 %; Hematocrit 24.2 % (35.3-44.9); Hemoglobin 8.1 g/dL (11.5-15.4); Immature Granulocytes % 0.6 % (0-4); Lymphocytes # 0.5 K/mcL (0.6-4.6); Lymphocytes % 4.5 %; Mean Corpuscular HGB Conc 33.5 g/dL (31.6-35.5); Mean Corpuscular Hemoglobin 28.8 pg (28.0-33.3); Mean Corpuscular Volume 86.1 fL (83.0-100.0); Mean Platelet Volume 10.8 fL (9.4-12.4); Monocytes # 0.9 K/mcL (0.0-1.3); Monocytes % 7.9 %; Neutrophils # 9.2 K/mcL (1.6-8.9); Platelet Count 131 K/mcL (140-400); Red Blood Count 2.81 M/mcL (3.82-4.97); Red Cell Distribution Width 14.9 % (11.5-14.5); Segmented Neutrophils % 84.8 %; White Blood Count 10.8 K/mcL (4.3-11.1)
[2019-02-27 06:48] LABS: Potassium 3.9 mEq/L (3.5-5.1)
[2019-02-27] MEDS: Psyllium 1 PACKET POWD.PACK PO SCH ×3 (07:32→20:43)
[2019-02-27] MEDS: Bisacodyl 10 MG RECTAL SUPPOSITORY RC SCH (07:32)
[2019-02-27] MEDS: Lactulose Oral Soln 20 GM/30 ML UDC PO SCH (07:32)
[2019-02-27] MEDS: MOM Conc 10 ML UD.LIQ PO SCH (07:32)
[2019-02-27] MEDS: Sucralfate 1 GM TABLET PO SCH ×4 (07:45→20:42)
[2019-02-27] MEDS: Cholecalciferol (D-3) 1,000 UNIT (25MCG) TABLET PO SCH (07:45)
[2019-02-27] MEDS: Lactobacillus 1 EACH CAP.SPRINK PO SCH ×2 (07:45→20:42)
[2019-02-27] MEDS: carvediloL 25 MG TABLET PO SCH ×2 (07:46→16:27)
[2019-02-27] MEDS: Budesonide Neb 0.5 MG/2 ML IH SCH ×2 (10:12→20:01)
[2019-02-27 16:56] LABS: INR 1.3; Prothrombin Time 14.4 Seconds (9.4-12.1)
[2019-02-27] MEDS: Albuterol 2.5 MG/3 ML NEBULIZER IH PRN (20:01)
[2019-02-27] MEDS: Diltiazem CD (24hr) 180 MG CAPSULE PO SCH (20:42)
[2019-02-28] MEDS: Acetylcysteine 10% 2 ML INHSOL IH SCH ×5 (04:07→21:22)
[2019-02-28] MEDS: Ipratropium/Albuterol Neb 3 ML IH SCH ×4 (04:07→21:22)
[2019-02-28 06:30] LABS: Hematocrit 23.6 % (35.3-44.9); Hemoglobin 8.2 g/dL (11.5-15.4); Mean Corpuscular HGB Conc 34.7 g/dL (31.6-35.5); Mean Corpuscular Hemoglobin 29.1 pg (28.0-33.3); Mean Corpuscular Volume 83.7 fL (83.0-100.0); Mean Platelet Volume 10.5 fL (9.4-12.4); Platelet Count 148 K/mcL (140-400); Red Blood Count 2.82 M/mcL (3.82-4.97); Red Cell Distribution Width 14.7 % (11.5-14.5); White Blood Count 9.5 K/mcL (4.3-11.1)
[2019-02-28 06:37] LABS: INR 1.3; Prothrombin Time 14.4 Seconds (9.4-12.1)
[2019-02-28 06:51] LABS: Calcium 8.1 mg/dL (8.6-10.3)
[2019-02-28] MEDS: Sucralfate 1 GM TABLET PO SCH ×4 (08:28→22:04)
[2019-02-28] MEDS: MOM Conc 10 ML UD.LIQ PO SCH (08:29)
[2019-02-28] MEDS: Psyllium 1 PACKET POWD.PACK PO SCH ×3 (08:29→22:05)
[2019-02-28] MEDS: Bisacodyl 10 MG RECTAL SUPPOSITORY RC SCH (08:29)
[2019-02-28] MEDS: Lactulose Oral Soln 20 GM/30 ML UDC PO SCH (08:30)
[2019-02-28] MEDS: Budesonide Neb 0.5 MG/2 ML IH SCH ×2 (10:25→21:22)
[2019-02-28] MEDS: Cholecalciferol (D-3) 1,000 UNIT (25MCG) TABLET PO SCH (11:40)
[2019-02-28] MEDS: Lactobacillus 1 EACH CAP.SPRINK PO SCH ×2 (11:40→22:04)
[2019-02-28] MEDS: carvediloL 25 MG TABLET PO SCH ×2 (11:41→18:20)
[2019-02-28] MEDS ORDERED: Heparin 1,000 UNITS/500 mL 500 ML ONE (13:29)
[2019-02-28] MEDS ORDERED: *HR* FentaNYL (PF) 100 MCG/2 ML VIAL IVP ONE (13:34)
[2019-02-28] MEDS ORDERED: 0.9 % Sodium Chloride 500 ML ONE (13:51)
[2019-02-28] MEDS ORDERED: CeFAZolin Premix DUPLEX 2,000 MG/50 ML BAG IVPB ONE ×2 (14:15)
[2019-02-28] MEDS ORDERED: *HR* Heparin 5,000 UNIT/ML VIAL HE ONE (14:31)
[2019-02-28] MEDS ORDERED: *HR* Heparin 5,000 UNIT/ML VIAL ONE ×2 (14:33→14:36)
[2019-02-28] MEDS: Diltiazem CD (24hr) 180 MG CAPSULE PO SCH (22:04)
[2019-03-01] MEDS ORDERED: *HR* HYDROcodone/Acet 5/325 mg TABLET PO ONE (03:12)
[2019-03-01] MEDS: Acetylcysteine 10% 2 ML INHSOL IH SCH ×3 (03:49→15:21)
[2019-03-01] MEDS: Ipratropium/Albuterol Neb 3 ML IH SCH ×3 (03:49→15:21)
[2019-03-01 03:54] LABS: Hematocrit 23.8 % (35.3-44.9); Mean Corpuscular HGB Conc 33.6 g/dL (31.6-35.5); Mean Corpuscular Hemoglobin 28.4 pg (28.0-33.3); Mean Corpuscular Volume 84.4 fL (83.0-100.0); Mean Platelet Volume 10.7 fL (9.4-12.4); Platelet Count 156 K/mcL (140-400); Red Blood Count 2.82 M/mcL (3.82-4.97); Red Cell Distribution Width 14.6 % (11.5-14.5)
[2019-03-01 04:01] LABS: INR 1.3; Prothrombin Time 14.4 Seconds (9.4-12.1)
[2019-03-01 04:14] LABS: Calcium 8.7 mg/dL (8.6-10.3)
[2019-03-01] MEDS ORDERED: 0.9 % Sodium Chloride 250 ML IVC PRN (07:50)
[2019-03-01] MEDS ORDERED: *HR* Heparin 10,000 UNIT/10 ML VIAL IV PRN (07:50)
[2019-03-01] MEDS: carvediloL 25 MG TABLET PO SCH ×2 (09:33→18:48)
[2019-03-01] MEDS: Lactobacillus 1 EACH CAP.SPRINK PO SCH (09:34)
[2019-03-01] MEDS: Sucralfate 1 GM TABLET PO SCH ×3 (09:34→18:48)
[2019-03-01] MEDS: MOM Conc 10 ML UD.LIQ PO SCH (09:36)
[2019-03-01] MEDS: Bisacodyl 10 MG RECTAL SUPPOSITORY RC SCH (09:36)
[2019-03-01] MEDS: Lactulose Oral Soln 20 GM/30 ML UDC PO SCH (09:36)
[2019-03-01] MEDS: Psyllium 1 PACKET POWD.PACK PO SCH ×2 (09:36→13:36)
[2019-03-01] MEDS: Budesonide Neb 0.5 MG/2 ML IH SCH (10:15)
[2019-03-01] MEDS: Cholecalciferol (D-3) 1,000 UNIT (25MCG) TABLET PO SCH (13:35)
[2019-03-01 19:13] VITALS: BP 143/62
== END 2019-03-01 20:50 | disposition home health service (06) | DRG 291 ==
LOC: EMEROOARM 02:25 → 3BNU 02:25 → SUATTDRO 02-07 13:43 → 2ANU 02-12 18:36
PROVIDERS: ADMIT Internal Medicine; ATTEND Student in an Organized Health Care Education/Training Program
PROC: IRPERMA (2019-02-28 14:00)